=== PATIENT | female | born 1950 | race Caucasian/White ===

== ENCOUNTER 2020-07-31 07:29 | Outpatient (REF) | payer MEDICARE, SELFPAY ==
--- NOTE | 2020-07-31 07:33 | CT_ITS ---
EXAMINATION: CT SINUS WITHOUT CONTRAST CLINICAL INFORMATION: Sinonasal polyps and deviated septum. COMPARISON: None. TECHNIQUE: 2 mm thin axial and reformatted 2 mm thin sagittal and coronal images of sinuses were obtained without contrast. This CT examination was performed using dose optimization techniques as appropriate, variously including the following: *Automated exposure control *Adjustment of mA and/or kV according to patient size (this includes techniques or standardized protocols for targeted exams where dose is matched to indication/reason for exam; i.e. extremities or head) *Use of iterative reconstruction technique DLP: 90 mGy-cm. FINDINGS: There is normal aeration of bilateral paranasal sinuses without mucoperiosteal thickening. The bony sinus ochoa are intact. Bilateral frontoethmoidal recesses and ostiomeatal complexes are widely patent. NASAL CAVITY/NASOPHARYNX: The nasal cavity is clear. There is mild nasal septal deviation/spurring to the left with a small bony spur. The nasopharynx is symmetric. ADDITIONAL RELEVANT FINDINGS: No periapical disease is seen. The TMJs articulate normally. The orbits and skull base soft tissues are unremarkable. The middle ear cavities and mastoid air cells are clear. Limited evaluation demonstrates no acute intracranial findings. CT/CT sinus wo con IMPRESSION: Clear sinuses. The drainage pathways are widely patent. Mild deviation of nasal septum to the left with a moderate-sized nasal spur. There are paradoxical superior turbinates.
== END 2020-07-31 07:30 | disposition home or self-care (01) ==
LOC: HO.CT 07:29
PROVIDERS: Visit Provider Otolaryngology
DX: J33.8 Other polyp of sinus (principal)
CPT/HCPCS: 70486

== ENCOUNTER 2020-10-18 09:41 | Outpatient (REF) | payer MEDICARE, SELFPAY ==
--- NOTE | 2020-10-18 09:45 | US_ITS ---
EXAMINATION: US EXTRACRANIAL CAROTID DUPLEX, BILATERAL CLINICAL INFORMATION: This is a 70-year-old female with dizziness and giddiness. Carotid artery disease. COMPARISON: None TECHNIQUE: Real-time ultrasound and Doppler techniques (integrating B-mode 2-D vascular images, Doppler spectral analysis and color-flow Doppler imaging) were utilized to interrogate the extracranial carotid arteries, the vertebral arteries and proximal subclavian arteries bilaterally. The degree of stenosis is determined by criteria similar to NASCET. FINDINGS: Right Side: 1. There is minimal atherosclerotic plaque seen in the bifurcation/proximal ICA region. 2. The common carotid artery PSV proximally is 117 cm/s and distally 74 cm/s. 3. The proximal internal carotid artery velocities are 64 cm/s systolic and 15 cm/s diastolic. 4. The proximal external carotid artery PSV is 130 cm/s. 5. The vertebral artery shows antegrade flow. 6. The subclavian artery waveforms are normal. Left Side: 1. There is minimal atherosclerotic plaque seen in the bifurcation/proximal ICA region. 2. The common carotid artery PSV proximally is 97 cm/s and distally 98 cm/s. 3. The proximal internal carotid artery velocities are 64 cm/s systolic and 19 cm/s diastolic. 4. The proximal external carotid artery PSV is 127 cm/s. 5. The vertebral artery shows antegrade flow. 6. The subclavian artery waveforms are normal. US/US carotid duplex BI IMPRESSION: 1. RIGHT: Minimal, non-hemodynamically significant stenosis of the proximal right internal carotid artery corresponding to a 0-49% stenosis by velocity criteria. 2. LEFT: Minimal, non-hemodynamically significant stenosis of the proximal left internal carotid artery corresponding to a 0-49% stenosis by velocity criteria.
== END 2020-10-18 09:42 | disposition home or self-care (01) ==
LOC: HO.HMGCX 09:41
PROVIDERS: Visit Provider Internal Medicine
DX: R42 Dizziness and giddiness (principal); R51.9 Headache, unspecified; G89.29 Other chronic pain
CPT/HCPCS: 93880

== ENCOUNTER 2021-05-28 08:10 | Outpatient (REF) | payer MEDICARE, SELFPAY ==
--- NOTE | ~2021-05-28 | MM_ITS ---
EXAMINATION: MM SCREENING DIGITAL BREAST TOMOSYNTHESIS, BILATERAL CLINICAL INFORMATION: Screening. Asymptomatic. The lifetime risk of breast cancer based on the Tyrer-Cuzick Model is 4%. COMPARISON: Mammography: 05/23/2020, 05/18/2019, 04/26/2018; ultrasound right breast 05/23/2019. TECHNIQUE: Digital breast tomosynthesis is performed in both the craniocaudal and mediolateral oblique views along with computer-aided detection (CAD). Synthesized 2D images are generated from the tomosynthesis. FINDINGS: There are scattered areas of fibroglandular density (ACR BI-RADS breast composition Category b). There are no significant masses, abnormal calcifications, or other abnormalities. Tiny cyst posterior outer right breast is borderline decreased. The bilateral axilla and skin contours are unremarkable. MM/MM tomosynthesis screening BI IMPRESSION: No mammographic evidence of malignancy. ASSESSMENT: BI-RADS 2: Benign RECOMMENDATION: Routine annual mammography screening. This patient's information was entered into a reminder system with a target due date for their next mammogram.
== END 2021-05-28 08:11 | disposition home or self-care (01) ==
LOC: HO.MAMMO 08:10
PROVIDERS: PCP Internal Medicine; Visit Provider Internal Medicine
DX: Z12.31 Encounter for screening mammogram for malignant neoplasm of breast (principal)
CPT/HCPCS: 77063; 77067

== ENCOUNTER 2021-06-04 06:30 | Day surgery (SDC) | payer MEDICARE, SELFPAY ==
[2021-04-05 11:46] VITALS: BMI 27.3
[2021-06-04 06:38] VITALS: BP 156/79; PULSE 91; RESP 16; TEMP 36.1; O2SAT 93
--- NOTE | 2021-06-04 07:20 | P.HPSUR_ITS ---
Pre-Procedural Eval Section A Date of Service: 06/04/21 Section B Chief Complaint: screening Details of Present Illness: See H&P no changes Relevant Family History (Specify if Yes): Yes Relevant Social History: None Present Medications: see Short Stay Collaborative assessment Medical History: No relevant PMH History of Previous Operations: No relevant previous surgery Allergies: Allergies Allergy/AdvReac Type Severity Reaction Status Date / Time barium sulfate Allergy Unknown couldn't Verified 04/05/21 11:11 put head down or would pass out loratadine [Claritin] Allergy Unknown heebie Verified 04/05/21 11:11 jeebies like going to jump out of skin varenicline [From Chantix] Allergy Unknown couldnt Verified 04/05/21 11:11 put head down or would pass out azithromycin AdvReac Unknown intestinal Verified 04/05/21 11:11 pain tiotropium AdvReac Unknown coughing Verified 04/05/21 11:11 [Spiriva with HandiHaler] fits Review of Systems Sugical H&P ROS: Negative: Constitution, Cardiovascular, Respiratory, Neurological, Psychiatric, Hem-Onc, Allergic/Immunologic, Gastrointestinal, Genitourinary, Musculoskeletal, Integumentary, Endocrine and E yes/Ears/Nose/Throat Exam Surgical H&P Exam: Normal: HEENT, Normal: Heart, Normal: Lungs, Normal: Extremities, Normal: Abdomen, Normal: Skin and Normal: Neurological Plan Diagnosis/Plan: Unchanged I have reviewed the history and physical and performed a pertinent physical examination on my patient. No changes have occurred unless specified.
--- NOTE | 2021-06-04 07:23 | P.CONAN_ITS ---
[facility] Active Problems Active Problems: All Active Problems (Updated 12/18/20 @ 09:00 by Anali white MD) Allergic rhinitis (Acute) Intermittent lightheadedness (Acute) Normal colonoscopy (Acute) Anxiety (Acute) Osteoarthritis (Acute) Seasonal allergies (Acute) COPD (chronic obstructive pulmonary disease) (Acute) Essential hypertension (Acute) Past Medical History Medical History Allergic rhinitis Anxiety Chronic left-sided headache COPD (chronic obstructive pulmonary disease) Essential hypertension Intermittent lightheadedness Normal colonoscopy Osteoarthritis Seasonal allergies Vertigo Family History Family History Father Colon cancer Mother CVD (cardiovascular disease) Arteriosclerotic heart disease (ASHD) Brother Colon polyps Maternal Aunt Stomach cancer Brother Hemochromatosis Daughter No problems noted. Daughter No problems noted. Sister No problems noted. Sister No problems noted. Sister No problems noted. Sister No problems noted. Sister No problems noted. Sister No problems noted. Sister No problems noted. Sister No problems noted. Surgical History Surgical History History of adenoidectomy History of appendectomy History of colonoscopy History of lung surgery History of tonsillectomy Status post dilation and curettage History of Problems with Anesthesia: No Social History Social History Are you a primary school childcare attendant to a significant other at home: No Do you presently have visiting nurse or other home services: No Alcohol intake: current Alcohol intake frequency: a few times a month Tobacco use type: Smokeless Tobacco Use of substances other than those prescribed or required for medical reasons: No Have you been hit, kicked, punched, or otherwise hurt by someone within the past year? If so, by whom?: No Advance Directives: No Advance Directives Information Provided: No Advance Directives on File: No Recently lost weight without trying: No Eating poorly because of decreased appetite: No Nutrition Risks: No Nutritional Risk Meds Allergies Allergy/AdvReac Type Severity Reaction Status Date / Time barium sulfate Allergy Unknown couldn't Verified 04/05/21 11:11 put head down or would pass out loratadine [Claritin] Allergy Unknown heebie Verified 04/05/21 11:11 jeebies like going to jump out of skin varenicline [From Chantix] Allergy Unknown couldnt Verified 04/05/21 11:11 put head down or would pass out azithromycin AdvReac Unknown intestinal Verified 04/05/21 11:11 pain tiotropium AdvReac Unknown coughing Verified 04/05/21 11:11 [Spiriva with HandiHaler] fits Home Medications Medication Instructions Recorded Confirmed Last Taken Type albuterol sulfate 90 mcg/actuation 2 puff INHALATION Q4-6H PRN 09/07/20 04/05/21 Unknown History aerosol inhaler cetirizine 10 mg tablet 10 mg PO DAILY PRN 12/18/20 04/05/21 Unknown History acetaminophen 325 mg tablet 650 mg PO Q6H PRN 04/05/21 04/05/21 Unknown History (Tylenol) calcium carbonate 500 mg (1,250 1 tab PO DAILY 04/05/21 04/05/21 Unknown History mg)-vitamin D3 125 unit tablet multivitamin 1 tab PO DAILY 04/05/21 04/05/21 Unknown History Exam Exam Date and Time: June 04, 2021 0723 Height,Weight and Vital Signs: Height 5 ft 5.5 in Weight 75.75 kg Last Vital Signs Temp 96.9 F 06/04/21 06:38 Pulse 91 06/04/21 06:38 Resp 16 06/04/21 06:38 BP 156/79 H 06/04/21 06:38 Pulse Ox 93 06/04/21 06:38 Airway Mallampati Class: II TM Dist: >3cm Neck ROM: Full Loose/Missing/Broken Teeth: No Heart: RRR Lungs: CTA Assessment and Plan Assessment Anesthesia Assessment: Anesthesia Plan Discussed and Chart Reviewed Final Anesthetic Review History of Problems with Anesthesia: No NPO: Yes ASA Class: II Final Preanesthetic Review: Meds/Allgs Chart Reviewed, Consent Obtained/Reviewed and Anes Risks/Benef Reviewed Patient Risk: Low Procedure Risk: Low Anesthetic Plan Anesthetic Plan: MAC: Disposition: Standard PACU
[2021-06-04 08:06] VITALS: BP 110/54; PULSE 60; RESP 18; TEMP 36.8; O2SAT 99
--- NOTE | 2021-06-04 08:10 | P.BOP_ITS ---
Brief Operative Note Date of Service: 06/04/21 Pre-op diagnosis: fh colon cancer Post-op diagnosis: same Procedure: colonoscopy Surgeon: Brent James Anesthesia: MAC Was an I[employer] used for this Procedure?: No Estimated blood loss (mL): 2 Pathology: other (polyps x 3) Condition: stable Disposition: PACU
[2021-06-04 08:21] VITALS: BP 130/63; PULSE 58; RESP 18; TEMP 36.8; O2SAT 96
--- NOTE | 2021-06-04 09:18 | OP_ITS ---
SURGEON: Brent James MD INDICATIONS: Colon cancer screening and family history of colon cancer. PREOPERATIVE DIAGNOSIS: POSTOPERATIVE DIAGNOSIS: PROCEDURE PERFORMED: Colonoscopy to the terminal ileum with biopsy and snare polypectomy. ESTIMATED BLOOD LOSS: COMPLICATIONS: ANESTHESIA: ASSISTANTS: SPECIMENS: MEDICATIONS: Monitored anesthesia care. DESCRIPTION OF PROCEDURE: History and physical performed. The risks and benefits of the procedure were explained to the patient. Informed consent was obtained. The patient was placed in the left lateral decubitus position. A digital rectal exam was performed and was found to be normal. The Olympus pediatric video colonoscope was introduced into the rectum and advanced to the cecum without difficulty. The cecum was identified by transillumination, palpation, and identification of the ileocecal valve. Examination was performed and the scope was removed. She tolerated the procedure well and was taken to recovery area in stable condition. FINDINGS: The terminal ileum was normal. The visualized colonic mucosa was normal. The quality of the prep was good. Three polyps were identified and removed. The first was located at 60 cm measuring less than 5 mm and was removed with biopsy forceps. Second was located at 30 cm measuring approximately 8 mm and was removed with a snare. The third polyp was less than 5 mm in the rectum and was removed with a snare. Multiple other hyperplastic appearing rectal polyps were observed, but not removed. Retroflexed examination showed some small internal hemorrhoids. IMPRESSION: Colon polyps. RECOMMENDATION: Follow up the biopsy results. MD LORY Michaels/DAVID / [id number]
== END 2021-06-04 08:40 | disposition home or self-care (01) ==
PROVIDERS: PCP Internal Medicine; Visit Provider Internal Medicine Gastroenterology
PROC: 0DJD8ZZ Inspection of Lower Intestinal Tract, Via Natural or Artificial Opening Endoscopic (ICD-10-PCS; CPT 45378; principal; 2021-06-04 07:30)
DX: Z12.11 Encounter for screening for malignant neoplasm of colon (principal); K63.5 Polyp of colon; K62.1 Rectal polyp; K64.8 Other hemorrhoids; Z80.0 Family history of malignant neoplasm of digestive organs; I10 Essential (primary) hypertension; J44.9 Chronic obstructive pulmonary disease, unspecified
CPT/HCPCS: 45385; 45380; 88305

== ENCOUNTER 2022-01-06 06:44 | Outpatient (REF) | payer MEDICARE, SELFPAY ==
[2022-01-06 12:39] LABS: Alanine Aminotransferase 20 U/L (0-31); Anion Gap 11 (12-20); Aspartate Amino Transferase 22 U/L (5-31); Blood Urea Nitrogen 14 mg/dL (9-16); Calcium 9.6 mg/dL (8.4-10.2); Carbon Dioxide 27 mmol/L (22-29); Chloride 106 mmol/L (96-108); Cholesterol 233 mg/dL; Estimated Glomerular Filt Rate 59; Glucose Fasting 95 mg/dL (60-99); HDL Cholesterol 87 mg/dL; LDL Cholesterol Calculated 127 mg/dl; Sodium 140 mmol/L (135-145); Triglycerides 98 mg/dL
[2022-01-06 12:43] LABS: Vitamin D 25-OH Total 40.7 ng/mL (>30)
== END 2022-01-06 06:45 | disposition home or self-care (01) ==
LOC: HO.HMGCLDS 06:44
PROVIDERS: Visit Provider Internal Medicine
DX: E78.5 Hyperlipidemia, unspecified (principal); I10 Essential (primary) hypertension; N95.9 Unspecified menopausal and perimenopausal disorder; R42 Dizziness and giddiness
CPT/HCPCS: 36415; 80048; 80061; 82306; 84450; 84460

== ENCOUNTER 2022-05-30 07:54 | Outpatient (REF) | payer MEDICARE, SELFPAY ==
--- NOTE | ~2022-05-30 | MM_ITS ---
EXAMINATION: MM SCREENING DIGITAL BREAST TOMOSYNTHESIS, BILATERAL CLINICAL INFORMATION: Screening. Asymptomatic. The lifetime risk of breast cancer based on the Tyrer-Cuzick Model is 4%. COMPARISON: Mammography: 05/28/2021, 05/23/2020, 05/18/2019 TECHNIQUE: Digital breast tomosynthesis is performed in both the craniocaudal and mediolateral oblique views along with computer-aided detection (CAD). Synthesized 2D images are generated from the tomosynthesis. FINDINGS: There are scattered areas of fibroglandular density (ACR BI-RADS breast composition Category b). There are no significant masses, abnormal calcifications, or other abnormalities. Parenchymal pattern is similar to prior studies. There is no developing density. No significant changes. MM/MM tomosynthesis screening BI IMPRESSION: No mammographic evidence of malignancy. ASSESSMENT: BI-RADS 1: Negative RECOMMENDATION: Routine annual mammography screening. This patient's information was entered into a reminder system with a target due date for their next mammogram.
== END 2022-05-30 07:55 | disposition home or self-care (01) ==
LOC: HO.MAMMO 07:54
PROVIDERS: Visit Provider Internal Medicine
DX: Z12.31 Encounter for screening mammogram for malignant neoplasm of breast (principal)
CPT/HCPCS: 77063; 77067

== ENCOUNTER 2022-08-08 06:52 | Outpatient (REF) | payer MEDICARE, SELFPAY ==
[2022-08-08 12:38] LABS: Vitamin D 25-OH Total 40.3 ng/mL (>30)
[2022-08-08 12:51] LABS: Alanine Aminotransferase 21 U/L (0-31); Anion Gap 16 (12-20); Aspartate Amino Transferase 23 U/L (5-31); Blood Urea Nitrogen 16 mg/dL (9-16); Calcium 9.7 mg/dL (8.4-10.2); Carbon Dioxide 24 mmol/L (22-29); Chloride 106 mmol/L (96-108); Cholesterol 227 mg/dL; Estimated Glomerular Filt Rate 57; Glucose Fasting 94 mg/dL (60-99); HDL Cholesterol 88 mg/dL; LDL Cholesterol Calculated 126 mg/dl; Potassium 4.2 mmol/L (3.3-5.1); Sodium 142 mmol/L (135-145); Triglycerides 65 mg/dL
== END 2022-08-08 06:53 | disposition home or self-care (01) ==
LOC: HO.HMGCLDS 06:52
PROVIDERS: PCP Internal Medicine; Visit Provider Internal Medicine
DX: F41.9 Anxiety disorder, unspecified (principal); I10 Essential (primary) hypertension; J44.9 Chronic obstructive pulmonary disease, unspecified; N95.9 Unspecified menopausal and perimenopausal disorder; E78.5 Hyperlipidemia, unspecified
CPT/HCPCS: 36415; 80048; 80061; 82306; 84450; 84460

== ENCOUNTER 2022-09-19 11:29 | Outpatient (REF) | payer MEDICARE, SELFPAY ==
[2022-09-19 12:52] LABS: Influenza A PCR POSITIVE (Negative); Influenza B PCR NEGATIVE (Negative); Resp Syncy Virus RNA Qual PCR NEGATIVE (Negative); SARS COV2 PCR INHOUSE NEGATIVE (Negative)
== END 2022-09-19 11:30 | disposition home or self-care (01) ==
LOC: HO.LNP 11:29
PROVIDERS: Visit Provider Emergency Medicine
DX: R68.89 Other general symptoms and signs (principal); Z20.822 Contact with and (suspected) exposure to COVID-19
CPT/HCPCS: 0241U

== ENCOUNTER 2023-02-09 10:55 | Outpatient (AMB) | payer MEDICARE, SELFPAY ==
--- NOTE | 2023-02-09 11:02 | A.OFFVIS_ITS ---
<Statement entered by Anali Bartholomew MD - 02/08/25 15:14> This note has been administratively?closed. Intake Vital Signs 02/09/23 11:06 Height 5 ft 5.5 in Weight 163 lb BMI 26.7 BP 135/80 Blood Pressure Location Rt brachial Position Sitting Pulse 82 Pulse Source Pulse Oximeter Pulse Oximetry (%) 96 Oxygen Delivery Method Room Air Intake Visit Reasons: SWV Intake Note: Pt is here today for her SWV Allergies barium sulfate Allergy (Unknown, Verified 02/09/23 11:32) couldn't put head down or would pass out loratadine [Claritin] Allergy (Unknown, Verified 02/09/23 11:32) heebie jeebies like going to jump out of skin varenicline [From Chantix] Allergy (Unknown, Verified 02/09/23 11:32) couldnt put head down or would pass out azithromycin Adverse Reaction (Unknown, Verified 02/09/23 11:32) intestinal pain tiotropium [Spiriva with HandiHaler] Adverse Reaction (Unknown, Verified 02/09/23 11:32) coughing fits Medication List - Last Reconciled 02/09/23 by Anali Bartholomew MD acetaminophen (Tylenol) 650 mg PO Q6H PRN albuterol sulfate 90 mcg/actuation 2 puffs inhalation Q4-6H PRN calcium carbonate-vitamin D3 500 mg-3.125 mcg (125 unit) 1 tab PO DAILY cetirizine 10 mg PO DAILY PRN fluticasone propionate 50 mcg/actuation (Flonase Allergy Relief) 1 spray intranasal DAILY multivitamin 1 tab PO DAILY HPI SWV HPI Details SWV ?72 year old lady with dyslipidemia, allergic rhinitis, anxiety, osteoarthritis, COPD and hypertension, here today for subsequent annual wellness visit . Blood pressure slightly elevated on today's visit, patient states that she was aggravated before coming here, worried about her brother who is currently in [facility] admitted for mild heart attack. She had a normal fasting lipid panel and fasting blood sugar check last 08/08/2022. Up-to-date with her screening mammogram, due again 05/30/2022 she had a screening colonoscopy done by Dr. James 06/04/2021 with removal of 3 hyperplastic polyps, repeat to be done in 2025. A bone density scan was done in 2019 which showed normal findings. No history of fractures. She is up-to-date with her COVID vaccine including the bivalent booster, u p-to-date with flu shot pneumonia vaccine and zoster vaccine as well as Tdap. She completed a MOLST form today, and was given the healthcare proxy form to complete. Patient wants to 1st discuss this with her family .? Medical / Social History Reviewed? Past Medical History ?Yes . ? [place] of Care / Care Team list updated ?Yes . ? Surgical/Hospitalization History ?Yes . ? Current Medications (including OTC and supplements) ?Yes . ? Family History ?Yes . ? Tobacco Control form ?Yes . ? AUDIT-C (Alcohol use) form ?Yes . ? Illicit drug use in Social History ?Yes . ? Current diagnosis of depression? ?No ? Appropriate PHQ2/PHQ9 completed ?Yes . ? Data entered by ?Compliance Auditor and reviewed by provider ? Fall Risk ? Fall History? Have you had any falls with injury in the past year? ?No . ? Have you had two or more falls in the past year? ?No . ? Fall Risk Assessment: ?No falls in the past year . ? HRA filled out by the patient, reviewed by Provider and scanned. ?SWV ? Balance? Romberg ?Yes . ? Tandem walk ?Yes . ? Walk and Turn ?Yes . ? Rise from sit to stand ?Yes . ?Vision? Corrective lens none ? Vision screen ? -Dr Claire ?Hearing? Whisper test ?pass . ?Written Plan?Completed. See Patient Documents.? [facility] Medical History (Updated 02/09/23 @ 11:59 by Anali Bartholomew MD) Allergic rhinitis Anxiety Chronic left-sided headache COPD (chronic obstructive pulmonary disease) Dyslipidemia Essential hypertension Intermittent lightheadedness Normal colonoscopy Osteoarthritis Seasonal allergies Vertigo Surgical History History of adenoidectomy History of appendectomy History of colonoscopy History of lung surgery History of tonsillectomy Status post dilation and curettage Family History Father Colon cancer Substance use disorder Mother CVD (cardiovascular disease) Arteriosclerotic heart disease (ASHD) Mental health disorder Brother Colon polyps Substance use disorder Maternal Aunt Stomach cancer Brother Hemochromatosis Daughter No problems noted. Daughter No problems noted. Sister No problems noted. Sister No problems noted. Sister No problems noted. Sister Substance use disorder Sister Substance use disorder Sister No problems noted. Sister No problems noted. Sister No problems noted. Social History Housing: Apartment Are you a primary pet care technician to a significant other at home: No Do you presently have visiting nurse or other home services: No Alcohol intake: current Alcohol intake frequency: a few times a month Tobacco use type: Smokeless Tobacco e-Cigarette/Vaping Use: Currently Using service: No Current occupational status: employed Cognitive needs: No Hearing needs: No Vision needs: No Female Reproductive History Menstrual Date of last pap smear: 04/10/17 Date of Mammogram: 05/30/22 Date of last Bone Density Screenin11/18/18 (Normal bone density) Questionnaire Medicare Wellness Checkup [age] What gender do you identify with?: female During the past 4 weeks, how much have you been bothered by emotional problems such as feeling anxious, depressed, irritable, sad or downhearted, and blue?: not at all During the past 4 weeks, has your physical & emotional health limited your social activities with family, friends, neighbors, or groups?: extremely During the past 4 weeks, how much bodily pain have you generally had?: mild pain During the past 4 weeks, was someone available to help you if you needed & wanted help?: yes, quite a bit During the past 4 weeks, what was the hardest physical activity you could do for at least 2 minutes?: moderate Can you get to places out of walking distance without help? (For eg., can you travel alone on buses, taxis or drive your car?): Yes Can you go shopping for groceries or clothes without someone's help?: Yes Can you prepare your own meals?: Yes Can you do your housework without help?: Yes Because of any health problems, do you need the help of another person with your personal care needs such as eating, bathing, dressing or getting around the house?: No Can you handle your own money without help?: Yes During the past 4 weeks, how would you rate your health in general?: very good During the past 4 weeks how have things been going for you?: pretty well Are you having difficulties driving your car?: no Do you always fasten your seat belt when you are in a car?: yes, usually During past 4 weeks, have you been bothered by the following: never: Falling or dizzy when standing up, Sexual problems?, Trouble eating well?, Teeth or denture problems?, Problems using the telephone? and Tiredness or fatigue? Have you fallen 2 or more times in the past year?: No Are you afraid of falling?: No Are you a smoker?: no (pt states she vapes) During the past 4 weeks, how many drinks of wine, beer, or other alcoholic beverages did you have?: 2-5 drinks per week Do you exercise for about 20 minutes 3 or more times a week?: yes, some of the time Have you been given information to help with the following?: no: Hazards in your house that might hurt you? and no: Keeping track of your medications? How often do you have trouble taking medicines the way you have been told to take them?: I do not have to take medicine How confident are you that you can control & manage most of your health problems?: very confident What is your race?: White Mini Mental State Exam (MMSE) Orientation What is the (year) (season) (date) (day) (month)?: year (2022), season (Spring), date (02/09/2023), day (Thursday) and month (February) Where are we (state) (county) (town or city) (hospital) (floor)?: state ([place]), [facility] ([place]), town or city ([place]) and hospital/clinic ([facility]) Score Score: 9 Activity of Daily Living Bathing - sponge bath, tub bath or shower: receives no assistance (gets in/out by self, if usual bathing means Dressing - getting clothes from closets & drawers, including inner/outer garments & fasteners.: gets clothes & gets completely dressed without help Toileting - going to the 'toilet room' for urine/bowel elimination & cleaning self/arranging clothes: goes to toilet room, cleans self, arranges clothes without help Transfer: moves in & out of bed and chair without help (may use support object) Continence: controls urination/bowel movements completely by self Feeding: feeds self without help Total Score: 0 Information obtained from: patient Using telephone: independent Traveling: independent Shopping: independent Preparing meals: independent Housework: independent Taking medicine: independent Managing money: independent PHQ-9 Over the last 2 weeks, how often have you been bothered by any of the following problems? 1. Little interest or pleasure in doing things: not at all 2. Feeling down, depressed, or hopeless: not at all 3. Trouble falling or staying asleep, or sleeping too much: not at all 4. Feeling tired or having little energy: not at all 5. Poor appetite or overeating: not at all 6. Feeling bad about yourself - or that you are a failure or have let yourself or your family down: not at all 7. Trouble concentrating on things, such as reading the newspaper or watching television: not at all 8. Moving or speaking so slowly that other people could have noticed. Or the opposite - being so fidgety or restless that you have been moving around a lot more than usual: not at all 9. Thoughts that you would be better off or of hurting yourself in some way: not at all Total score: 0 Source: Developed by Drs. Peterson Barakat, Melissa Ramos, Leodan Olivas and colleagues, with an educational kika from [employer] Physical Exam Vital Signs: Last Vital Signs Pulse 82 02/09/23 11:06 BP 144/80 H 02/09/23 11:06 Pulse Ox 96 02/09/23 11:06 Oxygen Delivery Method Room Air 02/09/23 11:06 BMI result Body Mass Index 26.7 Assessment & Plan Assessment & Plan (1) Essential hypertension: Code(s): I10 - Essential (primary) hypertension (2) Seasonal allergies: Code(s): J30.2 - Other seasonal allergic rhinitis (3) COPD (chronic obstructive pulmonary disease): Code(s): J44.9 - Chronic obstructive pulmonary disease, unspecified (4) Dyslipidemia: Code(s): E78.5 - Hyperlipidemia, unspecified (5) Encounter for subsequent annual wellness visit (AWV) in Medicare patient: Code(s): Z00.00 - Encounter for general adult medical examination without abnormal findings (6) Advanced directives, counseling/discussion: Code(s): Z71.89 - Other specified counseling Quality Reporting (2019) Depression/Bipolar (159/160/161/177) PHQ-9: Total score: 0 Coding Level of Care Code Medicare Subsequent (G0439) Diagnoses Essential hypertension I10 Seasonal allergies J30.2 COPD (chronic obstructive pulmonary disease) J44.9 Dyslipidemia E78.5 Encounter for subsequent annual wellness visit (AWV) in Medicare patient Z00.00 Advanced directives, counseling/discussion Z71.89 CPT Codes Advance Care Planning - Time spent: 16-45 minutes ([id number]) Advance Care Planning Advance Care Planning discussion: Completed/Scanned Date of discussion: 02/09/23 Who was present: Patient Forms completed: Health Care Proxy (Form given to patient to complete at home wants to discuss with family members) and MOLST Time spent: 16-45 minutes Actual minutes spent: 16
[2023-02-09 11:06] VITALS: BP 135/80; PULSE 82; O2SAT 96; BMI 26.7
== END 2023-02-09 11:56 | disposition home or self-care (01) ==
LOC: HO.HMGC 10:55
PROVIDERS: PCP Internal Medicine; Visit Provider Internal Medicine
DX: I10 Essential (primary) hypertension (principal); J30.2 Other seasonal allergic rhinitis; J44.9 Chronic obstructive pulmonary disease, unspecified; E78.5 Hyperlipidemia, unspecified; Z00.00 Encounter for general adult medical examination without abnormal findings; Z71.89 Other specified counseling
CPT/HCPCS: 99499

== ENCOUNTER 2023-06-05 07:51 | Outpatient (REF) | payer MEDICARE, SELFPAY | END 2023-06-05 07:52 | disposition home or self-care (01) | LOC: HO.MAMMO 07:51 | PROVIDERS: Visit Provider Internal Medicine | DX: Z12.31 Encounter for screening mammogram for malignant neoplasm of breast (principal) | CPT/HCPCS: 77063; 77067 ==

== ENCOUNTER → 2023-06-05 08:00 | Outpatient (BNV) | payer MEDICARE, SELFPAY | PROVIDERS: Visit Provider Radiology Diagnostic Radiology | DX: Z12.31 Encounter for screening mammogram for malignant neoplasm of breast (principal) | CPT/HCPCS: 77063; 77067 ==

== ENCOUNTER 2023-09-09 06:21 | Outpatient (REF) | payer MEDICARE, SELFPAY ==
[2023-09-09 12:01] LABS: Anion Gap 13 (12-20); Blood Urea Nitrogen 13 mg/dL (9-16); Calcium 9.7 mg/dL (8.4-10.2); Carbon Dioxide 26 mmol/L (22-29); Chloride 106 mmol/L (96-108); Cholesterol 228 mg/dL (<200); Estimated Glomerular Filt Rate > 60; Glucose Fasting 108 mg/dL (60-99); HDL Cholesterol 93 mg/dL (>40); LDL Cholesterol Calculated 117 mg/dL (<100); Potassium 3.7 mmol/L (3.3-5.1); Sodium 141 mmol/L (135-145); Triglycerides 90 mg/dL (<150)
[2023-09-09 12:18] LABS: Vitamin D 25-OH Total 53.2 ng/mL (>30)
== END 2023-09-09 06:22 | disposition home or self-care (01) ==
LOC: HO.HMGCLDS 06:21
PROVIDERS: PCP Internal Medicine; Visit Provider Internal Medicine
DX: E78.5 Hyperlipidemia, unspecified (principal); I10 Essential (primary) hypertension; Z78.0 Asymptomatic menopausal state
CPT/HCPCS: 36415; 80048; 80061; 82306

== ENCOUNTER 2023-09-10 09:12 | Outpatient (AMB) | payer MEDICARE, SELFPAY ==
--- NOTE | 2023-09-10 09:15 | A.OFFPC_ITS ---
Vital Signs 09/10/23 09:19 Height 5 ft 5.5 in Weight 160 lb BMI 26.2 BP 140/80 H Blood Pressure Location Lt brachial Position Sitting Pulse 86 Pulse Source Pulse Oximeter Pulse Oximetry (%) 97 Oxygen Delivery Method Room Air Intake Visit Reasons: 6m follow up Intake Note: Pt is here to follow up for her lab results Allergies barium sulfate Allergy (Unknown, Verified 09/10/23 09:36) couldn't put head down or would pass out loratadine [Claritin] Allergy (Unknown, Verified 09/10/23 09:36) heebie jeebies like going to jump out of skin varenicline [From Chantix] Allergy (Unknown, Verified 09/10/23 09:36) couldnt put head down or would pass out azithromycin Adverse Reaction (Unknown, Verified 09/10/23 09:36) intestinal pain tiotropium [Spiriva with HandiHaler] Adverse Reaction (Unknown, Verified 09/10/23 09:36) coughing fits Medication List - Last Reconciled 09/10/23 by Anali Bartholomew MD acetaminophen (Tylenol) 650 mg PO Q6H PRN albuterol sulfate 90 mcg/actuation 2 puffs inhalation Q4-6H PRN calcium carbonate-vitamin D3 500 mg-3.125 mcg (125 unit) 1 tab PO DAILY cetirizine 10 mg PO DAILY PRN fluticasone propionate 50 mcg/actuation (Flonase Allergy Relief) 1 spray intranasal DAILY multivitamin 1 tab PO DAILY Tobacco use date assessed: 09/10/23 Fall risk assessment: No Falls in past year Last assessed Fall Risk: 09/10/23 Dental Screening Dental Screen Date: 09/10/23 Did you have a dental visit in the last 12 months?: Yes Did you have a dental problem in the last 6 months where you did not have access to dental care?: No Was dental information given to patient?: Patient has dentist HPI 6m follow up HPI Details 72-year-old lady here today for follow-u p. She has COPD, currently use albuterol inhalers home as needed for episodes of bronchospasm and wheezing which has been infrequent. She has hypertension, currently not on any medication at present time. Blood pressure on average has been below 130/80. Today, however, it is elevated as she is dealing with some family issues prior to coming to her visit. She does not smoke but continues to vape, using nicotine. Has been trying to follow a low-cholesterol high-fiber diet, but admits to not getting any regular exercise. Complains of waking up with chest congestion the morning at times. She takes her Zyrtec in the morning which has been helping. ON LICENSE OF [facility] Medical History Dyslipidemia Vertigo Allergic rhinitis Chronic left-sided headache Intermittent lightheadedness Normal colonoscopy Anxiety Osteoarthritis Seasonal allergies COPD (chronic obstructive pulmonary disease) Essential hypertension Surgical History History of lung surgery History of appendectomy Status post dilation and curettage History of colonoscopy History of adenoidectomy History of tonsillectomy Family History Father Colon cancer Substance use disorder Mother CVD (cardiovascular disease) Arteriosclerotic heart disease (ASHD) Mental health disorder Brother Colon polyps Substance use disorder Maternal Aunt Stomach cancer Brother Hemochromatosis Daughter No problems noted. Daughter No problems noted. Sister No problems noted. Sister No problems noted. Sister No problems noted. Sister Substance use disorder Sister Substance use disorder Sister No problems noted. Sister No problems noted. Sister No problems noted. Social History Housing: Apartment Are you a primary pet care worker to a significant other at home: No Do you presently have visiting nurse or other home services: No Alcohol intake: current Alcohol intake frequency: a few times a month Tobacco use type: Smokeless Tobacco e-Cigarette/Vaping Use: Currently Using Second Hand Smoke Exposure: Yes service: No Current occupational status: employed Cognitive needs: No Hearing needs: No Vision needs: No Questionnaire Thrive Questionnaire Date Thrive assessed: 01/08/22 SARAH-7 AMB Questionnaire SARAH-7 Date SARAH - 7 assessed: 01/08/22 Source: Developed by Drs. Peterson Barakat, Melissa Ramos, Leodan Olivas and colleagues, with an educational kika from [email or web address]. Review of Systems Const Denies difficulty sleeping, Denies fever(s), Denies frequent falls, Denies malaise and Denies weakness Eyes Denies change in vision ENT Reports nasal congestion (Usually early mornings), Reports post nasal drip, Denies sinus pain, Denies sore throat and Denies throat swelling Card Denies chest pain, Denies syncope and Denies dyspnea Resp Denies dyspnea GI Denies abdominal pain, Denies change in bowel habits and Denies heartburn Musc Denies abnormal gait Skin/Breast Denies lesions and Denies rash Neuro Denies abnormal gait, Denies syncope, Denies frequent falls and Denies weakness Aller/Immun Denies throat swelling Physical exam (Primary Care) Vital Signs: Last Vital Signs Pulse 86 09/10/23 09:19 BP 140/80 H 09/10/23 09:19 Pulse Ox 97 09/10/23 09:19 Oxygen Delivery Method Room Air 09/10/23 09:19 BMI result Body Mass Index 26.2 Tobacco/Smoking Status: Tobacco use Status Tobacco use date assessed 09/10/23 09/10/23 09:25 Tobacco use type Smokeless Tobacco 09/10/23 09:15 e-Cigarette/Vaping Use Currently Using 09/10/23 09:15 Thrive Assessment: Date of Thrive Assessment Date Thrive assessed 01/08/22 09/10/23 09:15 Const Orientation/consciousness: patient oriented x3 HENMA Head: Yes normocephalic General nose exam: Normal external nose present and No nasal discharge present Face and sinus: Yes sinuses nontender and Yes face symmetric Mouth: Normal oral and palatal mucosa present, oropharynx normal and moist mucous membranes Neck Other: Supple with no lymphadenopatyh Resp Effort & Inspection: normal respiratory effort and able to speak in complete sentences Auscultation: clear to auscultation bilaterally Cardio Other: S1-S2 present regular rate and rhythm Neuro General: patient oriented x3, gait normal, tone normal, moves all extremities and no focal motor deficits Results Reviewed Results Reviewed: ENTERED: 09/09/23 SEBLE ROSE: ORDERED: Met Prof Fast, Lipid Panel, Vitamin D 25-OH Test Result Flag Reference Site Sodium 141 135-145 mmol/L Potassium 3.7 3.3-5.1 mmol/L CL 106 96-108 mmol/L CO2 26 22-29 mmol/L Gap 13 12-20 BUN 13 9-16 mg/dL Creat 0.82 0.5-1.4 mg/dL EGFR > 60 NOTE: For -Citizen Of [place] individuals, multiply the result by 1.210. Chronic Kidney Disease: Estimated GFR < 60 mL/min/1.73m2 Severe Kidney Disease: Estimated GFR < 15 mL/min/1.73m2 FBS 108 H 60-99 mg/dL A fasting glucose from 100-125 mg/dl is considered impaired (pre-diabetes). CA 9.7 8.4-10.2 mg/dL Triglyceride 90 <150 mg/dL Desirable Triglyceride: less than 150 mg/dL Borderline High Triglyceride 150-199 mg/dL High Triglyceride: 200-499 mg/dL Very High Triglyceride: greater than or equal to 5OO mg/dL Cholesterol 228 H <200 mg/dL Desirable Cholesterol: less than 200 mg/dL Borderline High Cholesterol: 200-239 mg/dL High Cholesterol: greater than 239 mg/dL LDL Calculated 117 H <100 mg/dL Desirable LDL: less than 100 mg/dL Near Optimal/Above Optimal LDL: 110-129 mg/dL Borderline High LDL: 130-159 mg/dL High LDL: 160-189 mg/dL Very High LDL: greater than or equal to 190 mg/dL HDL 93 >40 mg/dL Desirable HDL: greater than 40 mg/dL Note: This HDL assay may give artificially low results in patients with liver disease. Vit D 25-OH Tot 53.2 >30 ng/mL Health Based Reference Values* < 20 ng/mL Deficient 20-30 ng/mL Insufficient > 30 ng/mL Sufficient Assessment and Plan Assessment & Plan (1) Dyslipidemia: Code(s): E78.5 - Hyperlipidemia, unspecified Plan: Discuss recent fasting lab results with patient with elevated cholesterol as compared to last check. Stressed importance of following a low-cholesterol diet and getting regular exercise. Will repeat again next year (2) COPD (chronic obstructive pulmonary disease): Code(s): J44.9 - Chronic obstructive pulmonary disease, unspecified Plan: Strongly advised to stop vaping nicotine products continues to take albuterol inhaler as needed , rarely uses per patient. She is up-to-date with her COVID vaccinations including booster, flu shot RSV and pneumococcal vaccine (3) Essential hypertension: Code(s): I10 - Essential (primary) hypertension Plan: Blood pressure today is higher than usual check. Reinforced importance of following a low-salt diet, and advised to get his stop vaping and get regular exercise. (4) Seasonal allergies: Code(s): J30.2 - Other seasonal allergic rhinitis Plan: Continue with cetirizine, switched to evening dose . Stopped going to her allergy shots, patient states there were ineffective. Coding Level of Care Code Est Pt Level 3 (55766) Diagnoses Dyslipidemia E78.5 COPD (chronic obstructive pulmonary disease) J44.9 Essential hypertension I10 Seasonal allergies J30.2
[2023-09-10 09:19] VITALS: BP 140/80; PULSE 86; O2SAT 97; BMI 26.2
== END 2023-09-10 10:22 | disposition home or self-care (01) ==
PROVIDERS: PCP Internal Medicine; Visit Provider Internal Medicine
DX: E78.5 Hyperlipidemia, unspecified (principal); J44.9 Chronic obstructive pulmonary disease, unspecified; I10 Essential (primary) hypertension; J30.2 Other seasonal allergic rhinitis
CPT/HCPCS: 99213

== ENCOUNTER 2023-09-26 11:32 | Outpatient (AMB) | payer MEDICARE, SELFPAY ==
--- NOTE | 2023-09-26 11:35 | MHC.OFFWIV ---
Intake Vital Signs 09/26/23 11:36 Height 5 ft 5.5 in BP 136/82 Blood Pressure Location Rt brachial Position Sitting Pulse 82 Pulse Source Pulse Oximeter Temp 97.8 F Temp Source Oral Pulse Oximetry (%) 98 Oxygen Delivery Method Room Air Intake Visit Reasons: EP Cold symptoms, SOB (maksed) Intake Note: pt is here for sob, loss of voice, pt has copd Patient Tobacco Use Status: Former Tobacco user Allergies barium sulfate Allergy (Unknown, Verified 09/26/23 11:41) couldn't put head down or would pass out loratadine [Claritin] Allergy (Unknown, Verified 09/26/23 11:41) heebie jeebies like going to jump out of skin varenicline [From Chantix] Allergy (Unknown, Verified 09/26/23 11:41) couldnt put head down or would pass out azithromycin Adverse Reaction (Unknown, Verified 09/26/23 11:41) intestinal pain tiotropium [Spiriva with HandiHaler] Adverse Reaction (Unknown, Verified 09/26/23 11:41) coughing fits HPI HPI Comments History of Present Illness Details She presents with cold since thursday she has COPD; current vaper She said inhalers not working Cough is productive No fever or chills + congestion No ear pain or ST No other complaints COVID test at home was negative [facility] Medical History Dyslipidemia Vertigo Allergic rhinitis Chronic left-sided headache Intermittent lightheadedness Normal colonoscopy Anxiety Osteoarthritis Seasonal allergies COPD (chronic obstructive pulmonary disease) Essential hypertension Surgical History History of lung surgery History of appendectomy Status post dilation and curettage History of colonoscopy History of adenoidectomy History of tonsillectomy Family History Father Colon cancer Substance use disorder Mother CVD (cardiovascular disease) Arteriosclerotic heart disease (ASHD) Mental health disorder Brother Colon polyps Substance use disorder Maternal Aunt Stomach cancer Brother Hemochromatosis Daughter No problems noted. Daughter No problems noted. Sister No problems noted. Sister No problems noted. Sister No problems noted. Sister Substance use disorder Sister Substance use disorder Sister No problems noted. Sister No problems noted. Sister No problems noted. Social History Housing: Apartment Are you a primary coronary care unit nurse to a significant other at home: No Do you presently have visiting nurse or other home services: No Alcohol intake: current Alcohol intake frequency: a few times a month Patient Tobacco Use Status: Former Tobacco user Tobacco use type: Smokeless Tobacco e-Cigarette/Vaping Use: Currently Using Second Hand Smoke Exposure: Yes service: No Current occupational status: employed Cognitive needs: No Hearing needs: No Vision needs: No Review of Systems Const Denies body aches, Denies chills and Denies fever(s) ENT Denies vertigo, Denies otalgia, Reports nasal congestion, Reports nasal discharge, Denies sinus pressure and Denies sore throat Card Denies chest pain and Denies rapid heart rate Resp Reports chest congestion and Reports cough Neuro Denies vertigo Physical Exam Vital Signs: Last Vital Signs Temp 97.8 F 09/26/23 11:36 Pulse 82 09/26/23 11:36 BP 136/82 09/26/23 11:36 Pulse Ox 98 09/26/23 11:36 Oxygen Delivery Method Room Air 09/26/23 11:36 General: Non-toxic, NAD. Speaking full sentences. Skin: Warm dry throughout Eye: EOMI HENT: Airway patent. Uvula midline. No pharyngeal erythema or edema. No LOAN CLOSER. Bilateral canals clear. TM non-erythematous, non-bulging. No TM perforation or hemotympanum noted. Respiratory: +rhonchi bilaterally. No rales or wheeze. Cardiac: RRR. No murmur MSK: Full ROM extremities. Neurology: A/O. No aphasia or facial droop. Gait without abnormality Psych: Good mood and affect Assessment & Plan Assessment & Plan (1) Acute bronchitis: Code(s): J20.9 - Acute bronchitis, unspecified Qualifiers: Bronchitis organism: unspecified organism Qualified Code(s): J20.9 - Acute bronchitis, unspecified Plan: Patient seen and evaluated. No bacterial systemic symptoms like fever, chills, green sputum or rales Prednisone with food; avoid nsaids, alcohol or taking late at night Discussed antibiotic if worsening and she will call back for send in script due to COPD hx and rhonchi on exam Patient gave verbal understanding and had no additional questions or concerns at time of discharge All questions answered Medications: New prednisone 40 mg (2 x 20 mg) PO DAILY 8 tabs 0RF 4 days J20.9 - Acute bronchitis, unspecified Coding Level of Care Code Est Pt Level 3 (19544) Diagnoses Acute bronchitis, unspecified organism J20.9 Bronchitis organism: unspecified organism
[2023-09-26 11:36] VITALS: BP 136/82; PULSE 82; TEMP 36.6; O2SAT 98
== END 2023-09-26 12:34 | disposition home or self-care (01) ==
PROVIDERS: PCP Internal Medicine; Visit Provider Physician Assistant
DX: J20.9 Acute bronchitis, unspecified (principal)
CPT/HCPCS: 99213

== ENCOUNTER 2023-09-30 09:57 | Outpatient (AMB) | payer MEDICARE, SELFPAY ==
[2023-09-30 11:20] VITALS: BP 160/80; PULSE 83; TEMP 36.3; O2SAT 96; BMI 26.5
--- NOTE | 2023-09-30 11:20 | AM.OFFWIN_ITS ---
Intake Vital Signs 09/30/23 11:20 Height 5 ft 5.5 in Weight 162 lb BMI 26.5 BP 160/80 H Blood Pressure Location Lt brachial Position Sitting Pulse 83 Pulse Source Pulse Oximeter Temp 97.3 F Temp Source Temporal Artery Scan Pulse Oximetry (%) 96 Oxygen Delivery Method Room Air Intake Visit Reasons: EST/chest congestion(lobby masked) Intake Note: pt is here today for chest congestion started last thursday Patient Tobacco Use Status: Former Tobacco user Allergies barium sulfate Allergy (Unknown, Verified 09/30/23 11:) couldn't put head down or would pass out loratadine [Claritin] Allergy (Unknown, Verified 09/30/23 11:) heebie jeebies like going to jump out of skin varenicline [From Chantix] Allergy (Unknown, Verified 09/30/23 11:) couldnt put head down or would pass out azithromycin Adverse Reaction (Unknown, Verified 09/30/23 11:) intestinal pain tiotropium [Spiriva with HandiHaler] Adverse Reaction (Unknown, Verified 09/30/23 11:) coughing fits Do you need a note to return to daycare/school/sports/work: No HPI EST/chest congestion(lobby masked) HPI Details This is a 72 year old patient who returns to the [place] clinic today for evaluation. She was seen here this past thursday for URI symptoms and was started on 4 days of prednisone. She at the time did not want an antibiotic but was advised to call back if she did not improve. She is completing prednisone course today and although she is feeling somewhat improved, is still having some wheezing and productive cough. She has been using lozenges and ventolin inhaler. Has been feeling hot and cold . [facility] Medical History Dyslipidemia Vertigo Allergic rhinitis Chronic left-sided headache Intermittent lightheadedness Normal colonoscopy Anxiety Osteoarthritis Seasonal allergies COPD (chronic obstructive pulmonary disease) Essential hypertension Surgical History History of lung surgery History of appendectomy Status post dilation and curettage History of colonoscopy History of adenoidectomy History of tonsillectomy Family History Father Colon cancer Substance use disorder Mother CVD (cardiovascular disease) Arteriosclerotic heart disease (ASHD) Mental health disorder Brother Colon polyps Substance use disorder Maternal Aunt Stomach cancer Brother Hemochromatosis Daughter No problems noted. Daughter No problems noted. Sister No problems noted. Sister No problems noted. Sister No problems noted. Sister Substance use disorder Sister Substance use disorder Sister No problems noted. Sister No problems noted. Sister No problems noted. Social History Housing: Apartment Are you a primary home care companion to a significant other at home: No Do you presently have visiting nurse or other home services: No Alcohol intake: current Alcohol intake frequency: a few times a month Patient Tobacco Use Status: Former Tobacco user Tobacco use type: Smokeless Tobacco e-Cigarette/Vaping Use: Currently Using Second Hand Smoke Exposure: Yes service: No Current occupational status: employed Cognitive needs: No Hearing needs: No Vision needs: No Review of Systems Const All systems reviewed & are unremarkable except as noted in HPI and below Physical Exam Vital Signs: Last Vital Signs Temp 97.3 F 09/30/23 11:20 Pulse 83 09/30/23 11:20 BP 160/80 H 09/30/23 11:20 Pulse Ox 96 09/30/23 11:20 Oxygen Delivery Method Room Air 09/30/23 11:20 BMI result Body Mass Index 26.5 Const General: cooperative HEENT Head: Yes normal to inspection Ears: hearing grossly normal bilaterally General nose exam: Normal external nose present Throat: Yes posterior oropharynx normal Neck Neck: Yes no lymphadenopathy Resp Effort & Inspection: normal respiratory effort and Actively coughing Quality: productive Auscultation: wheezes upper bilaterally Cardio Palpation: normal PMI Rate: regular rate Rhythm: regular rhythm Skin General skin exam: no rashes or lesions noted Extrem General: Yes capillary refill normal and Yes no clubbing, cyanosis or edema Psych Appearance: grossly normal Mental Status: mental status grossly normal Speech and movement: Normal speech and movement present Assessment & Plan Assessment & Plan (1) Acute bronchitis: Code(s): J20.9 - Acute bronchitis, unspecified Qualifiers: Bronchitis organism: unspecified organism Qualified Code(s): J20.9 - Acute bronchitis, unspecified Plan: Patient declines any further prednisone. Does not want any viral testing and declined a nebulizer treatment today in the office. I will start her on an antibiotic. We discussed use and possible s/e of this. If she still does not improve with treatment she should return to the clinic for further evaluation. She can continue to use Ventolin and lozenges at home, and may take tylenol/Mo shaun as needed for any pain/fever. She agrees to plan. (2) COPD (chronic obstructive pulmonary disease): Code(s): J44.9 - Chronic obstructive pulmonary disease, unspecified Qualifiers: COPD type: COPD with acute exacerbation Qualified Code(s): J44.1 - Chronic obstructive pulmonary disease with (acute) exacerbation Plan: as above Medications: New doxycycline hyclate 100 mg PO BID 14 tabs 0RF J20.9 - Acute bronchitis, unspecified, J44.9 - Chronic obstructive pulmonary disease, unspecified Discontinued azithromycin Discontinued Reason: Doctor's Order take 500 mg today (day 1), then 250 mg for 4 days (days 2-5) PO 6 tabs 0RF Coding Level of Care Code Est Pt Level 3 (45984) Diagnoses Acute bronchitis, unspecified organism J20.9 Bronchitis organism: unspecified organism Chronic obstructive pulmonary disease with acute exacerbation J44.1 COPD type: COPD with acute exacerbation
== END 2023-09-30 11:40 | disposition home or self-care (01) ==
PROVIDERS: PCP Internal Medicine; Visit Provider Nurse Practitioner Family
DX: J20.9 Acute bronchitis, unspecified (principal); J44.1 Chronic obstructive pulmonary disease with (acute) exacerbation
CPT/HCPCS: 99213

== ENCOUNTER 2023-12-22 08:16 | Outpatient (AMB) | payer MEDICARE, SELFPAY ==
[2023-12-22 08:32] VITALS: BP 122/80; PULSE 79; TEMP 36.4; O2SAT 95; BMI 26.7
--- NOTE | 2023-12-22 08:32 | MHC.OFFWIV ---
Intake Vital Signs 12/22/23 08:32 Height 5 ft 5.5 in Weight 163 lb BMI 26.7 BP 122/80 Blood Pressure Location Lt brachial Position Sitting Pulse 79 Pulse Source Pulse Oximeter Temp 97.6 F Temp Source Temporal Artery Scan Pulse Oximetry (%) 95 Oxygen Delivery Method Room Air Intake Visit Reasons: EP Head cold Intake Note: pt is here today for head cold started Thursday Patient Tobacco Use Status: Former Tobacco user Allergies barium sulfate Allergy (Unknown, Verified 12/22/23 09:04) couldn't put head down or would pass out loratadine [Claritin] Allergy (Unknown, Verified 12/22/23 09:04) heebie jeebies like going to jump out of skin varenicline [From Chantix] Allergy (Unknown, Verified 12/22/23 09:04) couldnt put head down or would pass out azithromycin Adverse Reaction (Unknown, Verified 12/22/23 09:04) intestinal pain tiotropium [Spiriva with HandiHaler] Adverse Reaction (Unknown, Verified 12/22/23 09:04) coughing fits Medication List - Last Reconciled 12/22/23 by COLBY Jones acetaminophen (Tylenol) 650 mg PO Q6H PRN albuterol sulfate 90 mcg/actuation 2 puffs inhalation Q4-6H PRN amoxicillin-pot clavulanate 875-125 mg 1 tab PO Q12H benzonatate 200 mg PO BID PRN calcium carbonate-vitamin D3 500 mg-3.125 mcg (125 unit) 1 tab PO DAILY cetirizine 10 mg PO DAILY PRN fluticasone propionate 50 mcg/actuation (Flonase Allergy Relief) 1 spray intranasal DAILY multivitamin 1 tab PO DAILY prednisone 40 mg (2 x 20 mg) PO DAILY Do you need a note to return to daycare/school/sports/work: No HPI HPI Comments History of Present Illness Details Patient is a 73-year-old female in today for a sick visit. Patient states she has developed symptoms of cough, wheeze, chest congestion, sore throat, headache x3 days. Patient has a past medical history significant for COPD. Patient used her at home albuterol inhaler to hours prior to this appointment declined in office nebulizer treatment. Patient denies chest pain, dizziness, shortness of breath, nausea, vomiting, diarrhea. Patient does have some dyspnea on exertion. The patient has used albuterol inhaler at home with moderate effect. [facility] Medical History Dyslipidemia Vertigo Allergic rhinitis Chronic left-sided headache Intermittent lightheadedness Normal colonoscopy Anxiety Osteoarthritis Seasonal allergies COPD (chronic obstructive pulmonary disease) Essential hypertension Surgical History History of lung surgery History of appendectomy Status post dilation and curettage History of colonoscopy History of adenoidectomy History of tonsillectomy Family History Father Colon cancer Substance use disorder Mother CVD (cardiovascular disease) Arteriosclerotic heart disease (ASHD) Mental health disorder Brother Colon polyps Substance use disorder Maternal Aunt Stomach cancer Brother Hemochromatosis Daughter No problems noted. Daughter No problems noted. Sister No problems noted. Sister No problems noted. Sister No problems noted. Sister Substance use disorder Sister Substance use disorder Sister No problems noted. Sister No problems noted. Sister No problems noted. Social History Housing: Apartment Are you a primary skin care therapist to a significant other at home: No Do you presently have visiting nurse or other home services: No Alcohol intake: current Alcohol intake frequency: a few times a month Patient Tobacco Use Status: Former Tobacco user Tobacco use type: Smokeless Tobacco e-Cigarette/Vaping Use: Currently Using Second Hand Smoke Exposure: Yes service: No Current occupational status: employed Cognitive needs: No Hearing needs: No Vision needs: No Review of Systems Const All systems reviewed & are unremarkable except as noted in HPI and below Reports headache(s) ENT Denies dizziness, Reports headache(s) and Reports sore throat Card Denies chest pain, Denies dyspnea and Reports dyspnea on exertion Resp Reports chest congestion, Reports cough, Denies dyspnea, Reports dyspnea on exertion and Reports wheezing GI Denies diarrhea, Denies nausea and Denies vomiting Neuro Denies dizziness and Reports headache(s) Aller/Immun Reports wheezing Physical Exam Vital Signs: Last Vital Signs Temp 97.6 F 12/22/23 08:32 Pulse 79 12/22/23 08:32 BP 122/80 12/22/23 08:32 Pulse Ox 95 12/22/23 08:32 Oxygen Delivery Method Room Air 12/22/23 08:32 BMI result Body Mass Index 26.7 Vital signs reviewed stable Const Other: Appearance: Alert.? Oriented X3.? No acute distress.? Head: Normocephalic, atraumatic, no step-offs or deformities Eyes: Pupils equal, round and reactive to light.? ENT: Pharynx normal.?TM intact and pearly gunderson. Neck: Normal inspection.? Neck supple.?Full ROM. CVS: Normal heart rate and rhythm.? Pulses normal.? Respiratory: No respiratory distress.? Bilateral wheeze upper lobes. ? Neuro: Oriented X 3.? No motor deficit.? No sensory deficit. CN 2-12 intact Assessment & Plan Assessment & Plan (1) Upper respiratory infection: Comment: Patient will be given prednisone, benzonatate, Augmentin, to be taken as directed. Patient had upper respiratory swab in office. Patient was educated on signs of worsening symptoms and when to present back to the walk-in or when to present to the ED. patient declined in office nebulizer due to history of bronchospasm. Code(s): J06.9 - Acute upper respiratory infection, unspecified Qualifiers: URI type: unspecified URI Qualified Code(s): J06.9 - Acute upper respiratory infection, unspecified Plan: Take your medications as prescribed. If you were prescribed antibiotics today, it is important that you take your medication to their entirety, do not skip any doses, do not finish them early. Follow-up with your primary care provider this week. Return to the emergency department with new or worsening symptoms. Such as fevers, chills, chest pain, shortness of breath, nausea, vomiting, dizziness, headache, vision changes, lethargy In case of emergency call 911 Plan Follow-up with PCP. Orders: Orders SARS-CoV2/FLU/RSV Today J06.9 - Acute upper respiratory infection, unspecified Medications: New amoxicillin-pot clavulanate 875-125 mg 1 tab PO Q12H 14 tabs 0RF benzonatate 200 mg PO BID PRN 30 caps 0RF cough prednisone 40 mg (2 x 20 mg) PO DAILY 10 tabs 0RF Discontinued doxycycline hyclate Discontinued Reason: Patient Completed Course 100 mg PO BID 14 tabs 0RF J20.9 - Acute bronchitis, unspecified, J44.9 - Chronic obstructive pulmonary disease, unspecified Coding Level of Care Code Est Pt Level 3 (34893) Diagnoses Upper respiratory tract infection, unspecified type J06.9 URI type: unspecified URI Time Spent (min) 24
== END 2023-12-22 09:22 | disposition home or self-care (01) ==
PROVIDERS: PCP Internal Medicine; Visit Provider Nurse Practitioner Primary Care
DX: J06.9 Acute upper respiratory infection, unspecified (principal)
CPT/HCPCS: 99213

== ENCOUNTER 2023-12-22 11:26 | Outpatient (REF) | payer MEDICARE, SELFPAY ==
[2023-12-22 12:30] LABS: Influenza A PCR NEGATIVE (Negative); Influenza B PCR NEGATIVE (Negative); Resp Syncy Virus RNA Qual PCR NEGATIVE (Negative); SARS COV2 PCR INHOUSE NEGATIVE (Negative)
== END 2023-12-22 11:27 | disposition home or self-care (01) ==
LOC: HO.HMGCLNP 11:26
PROVIDERS: Visit Provider Nurse Practitioner Primary Care
DX: Z11.52 Encounter for screening for COVID-19 (principal); J06.9 Acute upper respiratory infection, unspecified
CPT/HCPCS: 0241U

== ENCOUNTER 2024-03-09 09:11 | Outpatient (AMB) | payer MEDICARE, SELFPAY ==
--- NOTE | 2024-03-09 09:37 | AM.OFFVISMDC ---
Intake Vital Signs 03/09/24 09:57 Height 5 ft 5.5 in Weight 157 lb BMI 25.7 BP 130/80 Blood Pressure Location Rt brachial Position Sitting Pulse 81 Pulse Source Pulse Oximeter Pulse Oximetry (%) 96 Oxygen Delivery Method Room Air Intake Visit Reasons: CARL [id number] Intake Note: Pt is here today for her SWV Allergies barium sulfate Allergy (Unknown, Verified 03/09/24 10:14) couldn't put head down or would pass out loratadine [Claritin] Allergy (Unknown, Verified 03/09/24 10:14) heebie jeebies like going to jump out of skin varenicline [From Chantix] Allergy (Unknown, Verified 03/09/24 10:14) couldnt put head down or would pass out azithromycin Adverse Reaction (Unknown, Verified 03/09/24 10:14) intestinal pain tiotropium [Spiriva with HandiHaler] Adverse Reaction (Unknown, Verified 03/09/24 10:14) coughing fits Medication List - Last Reconciled 03/09/24 by Anali Bartholomew MD albuterol sulfate 90 mcg/actuation 2 puffs inhalation Q4-6H PRN calcium carbonate-vitamin D3 500 mg-3.125 mcg (125 unit) 1 tab PO DAILY cetirizine 10 mg PO DAILY PRN fluticasone propionate 50 mcg/actuation (Flonase Allergy Relief) 1 spray intranasal DAILY ibuprofen 200 mg PO Q6H PRN multivitamin 1 tab PO DAILY HPI SWV G0439 HPI Details SWV ? 73 year old lady with history of allergic rhinitis, arthritis, prediabetes, hypertension hyperlipidemia, presents for her ? Annual Wellness Visit, subsequent visit.? She is up-to-date with her screening mammogram, due again in 06/24/2024, is no longer gets cervical cancer screenings. She is up-to-date with her screening colonoscopy done 06/04/2021, and last bone density scan was done 2019 which showed normal findings. She had a normal fasting lipid screening done 09/09/2023, but fasting sugar done at the same time was in the prediabetic range at 108 mg/dL. She is up-to-date with all her vaccinations except for her tetanus booster ? Medical / Social History Reviewed? Past Medical History ?Yes . ? Sam[place] of Care / Care Team list updated ?Yes . ? Surgical/Hospitalization History ?Yes . ? Current Medications (including OTC and supplements) ?Yes . ? Family History ?Yes . ? Tobacco Control form ?Yes . ? AUDIT-C (Alcohol use) form ?Yes . ? Illicit drug use in Social History ?Yes . ? Current diagnosis of depression? ?No ? Appropriate PHQ2/PHQ9 completed ?Yes . ? Data entered by ?[employer] and reviewed by provider ? Fall Risk ? Fall History? Have you had any falls with injury in the past year? ?No . ? Have you had two or more falls in the past year? ?No . ? Fall Risk Assessment: ?No falls in the past year . ? HRA filled out by the patient, reviewed by Provider and scanned. ?SWV ? Balance? Romberg ?Yes . ? Tandem walk ?Yes . ? Walk and Turn ?Yes . ? Rise from sit to stand ?Yes . ?Vision? Corrective lens ?no ? Vision screen ? Up-to-date, currently sees Dr. Claire ?Hearing? Whisper test ?pass . ?Written Plan?Completed. See Patient Documents.? [facility] Medical History (Updated 03/09/24 @ 10:45 by Anali Bartholomew MD) Impaired fasting glucose Dyslipidemia Allergic rhinitis Normal colonoscopy Osteoarthritis Seasonal allergies COPD (chronic obstructive pulmonary disease) Surgical History History of lung surgery History of appendectomy Status post dilation and curettage History of colonoscopy History of adenoidectomy History of tonsillectomy Family History Father Colon cancer Substance use disorder Mother CVD (cardiovascular disease) Arteriosclerotic heart disease (ASHD) Mental health disorder Brother Colon polyps Substance use disorder Maternal Aunt Stomach cancer Brother Hemochromatosis Daughter No problems noted. Daughter No problems noted. Sister No problems noted. Sister No problems noted. Sister No problems noted. Sister Substance use disorder Sister Substance use disorder Sister No problems noted. Sister No problems noted. Sister No problems noted. Social History Housing: Apartment Are you a primary farm or ranch animal caretaker to a significant other at home: No Do you presently have visiting nurse or other home services: No Alcohol intake: current Alcohol intake frequency: a few times a month Patient Tobacco Use Status: Former Tobacco user Tobacco use type: Smokeless Tobacco e-Cigarette/Vaping Use: Currently Using Second Hand Smoke Exposure: Yes service: No Current occupational status: employed Cognitive needs: No Hearing needs: No Vision needs: No Questionnaire Medicare Wellness Checkup [age] What gender do you identify with?: female During the past 4 weeks, how much have you been bothered by emotional problems such as feeling anxious, depressed, irritable, sad or downhearted, and blue?: slightly During the past 4 weeks, has your physical & emotional health limited your social activities with family, friends, neighbors, or groups?: not at all During the past 4 weeks, how much bodily pain have you generally had?: moderate pain During the past 4 weeks, was someone available to help you if you needed & wanted help?: yes, as much as I wanted During the past 4 weeks, what was the hardest physical activity you could do for at least 2 minutes?: heavy Can you get to places out of walking distance without help? (For eg., can you travel alone on buses, taxis or drive your car?): Yes Can you go shopping for groceries or clothes without someone's help?: Yes Can you prepare your own meals?: Yes Can you do your housework without help?: Yes Because of any health problems, do you need the help of another person with your personal care needs such as eating, bathing, dressing or getting around the house?: No Can you handle your own money without help?: Yes During the past 4 weeks, how would you rate your health in general?: very good During the past 4 weeks how have things been going for you?: very well; could hardly better Are you having difficulties driving your car?: no Do you always fasten your seat belt when you are in a car?: yes, usually During past 4 weeks, have you been bothered by the following: never: Falling or dizzy when standing up, Sexual problems?, Trouble eating well?, Teeth or denture problems?, Problems using the telephone? and Tiredness or fatigue? Have you fallen 2 or more times in the past year?: No Are you afraid of falling?: No Are you a smoker?: yes, and I might quit During the past 4 weeks, how many drinks of wine, beer, or other alcoholic beverages did you have?: 2-5 drinks per week Do you exercise for about 20 minutes 3 or more times a week?: yes, all the time Have you been given information to help with the following?: no: Hazards in your house that might hurt you? and no: Keeping track of your medications? How often do you have trouble taking medicines the way you have been told to take them?: I always take medicine as prescribed How confident are you that you can control & manage most of your health problems?: very confident What is your race?: White Mini Mental State Exam (MMSE) Orientation What is the (year) (season) (date) (day) (month)?: year (2023), season (spring), date (03/09/24), day (Thursday) and month (march) Where are we (state) (county) (town or city) (hospital) (floor)?: state ([place]), county ([place]), town or city ([place]) and hospital/clinic ([facility]) Score Score: 9 Activity of Daily Living Bathing - sponge bath, tub bath or shower: receives no assistance (gets in/out by self, if usual bathing means Dressing - getting clothes from closets & drawers, including inner/outer garments & fasteners.: gets clothes & gets completely dressed without help Toileting - going to the 'toilet room' for urine/bowel elimination & cleaning self/arranging clothes: goes to toilet room, cleans self, arranges clothes without help Transfer: moves in & out of bed and chair without help (may use support object) Continence: controls urination/bowel movements completely by self Feeding: feeds self without help Total Score: 0 Information obtained from: patient Using telephone: independent Traveling: independent Shopping: independent Preparing meals: independent Housework: independent Taking medicine: independent Managing money: independent PHQ-9 Over the last 2 weeks, how often have you been bothered by any of the following problems? 1. Little interest or pleasure in doing things: not at all 2. Feeling down, depressed, or hopeless: not at all 3. Trouble falling or staying asleep, or sleeping too much: not at all 4. Feeling tired or having little energy: not at all 5. Poor appetite or overeating: not at all 6. Feeling bad about yourself - or that you are a failure or have let yourself or your family down: not at all 7. Trouble concentrating on things, such as reading the newspaper or watching television: not at all 8. Moving or speaking so slowly that other people could have noticed. Or the opposite - being so fidgety or restless that you have been moving around a lot more than usual: not at all 9. Thoughts that you would be better off or of hurting yourself in some way: not at all Total score: 0 Depression Screening Interpretation: Negative Depression Screening Done: Yes [id number] - PHQ-9 Billing: Yes Source: Developed by Drs. Peterson Barakat, Melissa Ramos, Leodan Olivas and colleagues, with an educational kika from [employer]. SARAH-7 AMB Questionnaire SARAH-7 Date SARAH - 7 assessed: 03/09/24 Feeling nervous, anxious, or on edge: 0 = Not at all Not being able to stop or control worryin = Not at all Worrying too much about different things: 0 = Not at all Trouble relaxin = Not at all Being so restless that it is hard to sit still: 0 = Not at all Becoming easily annoyed or irritable: 0 = Not at all Feeling afraid as if something awful might happen: 0 = Not at all Total SARAH-7 score (0-4 normal; 5-9 mild; 10-14 moderate; 15-21 severe): 0 Source: Developed by Drs. Peterson Barakat, Melissa Ramos, Leodan Olivas and colleagues, with an educational kika from [employer]. Physical Exam Vital Signs: Last Vital Signs Pulse 81 03/09/24 09:57 BP 130/80 03/09/24 09:57 Pulse Ox 96 03/09/24 09:57 Oxygen Delivery Method Room Air 03/09/24 09:57 BMI result Body Mass Index 25.7 Assessment & Plan Assessment & Plan (1) Impaired fasting glucose: Code(s): R73.01 - Impaired fasting glucose Plan: Latest fasting glucose was elevated in the prediabetic range, reinforced importance of following a healthy diet and getting regular exercise to prevent further progression to diabetes (2) Allergic rhinitis: Code(s): J30.9 - Allergic rhinitis, unspecified Plan: Discontinue cetirizine and switched to levels cetirizine 5 mg taken once a day. Has been using regular saline nasal wash to flush out allergens., has fluticasone nasal spray which she uses as needed (3) Dyslipidemia: Code(s): E78.5 - Hyperlipidemia, unspecified Plan: Latest fasting lipids are within normal limits. Continue with healthy eating habits and regular exercise. (4) Osteoarthritis: Code(s): M19.90 - Unspecified osteoarthritis, unspecified site Plan: Take ibuprofen as needed for joint pain (5) Encounter for subsequent annual wellness visit (AWV) in Medicare patient: Code(s): Z00.00 - Encounter for general adult medical examination without abnormal findings Plan: Medical wellness checklist reviewed, discussed with patient and updated. Copy given. Repeat bone density scan ordered to be scheduled together with upcoming mammogram 06/10/2024 (6) Advanced directives, counseling/discussion: Code(s): Z71.89 - Other specified counseling Plan: Initiated the conversation about Advanced Directives. Advanced Directives help patients prepare for current and future decisions about their medical treatment and place of care. Discussed with patient that it is a process where a patients current condition and prognosis are reviewed, their wishes for information regarding their illness are elicited, and likely medical dilemmas are presented and options discussed. Healthcare proxy form completed. The form can be amended as needed, reviewed yearly and make changes as needed Orders: Orders XR DEXA axial skeleton Today Z78.0 - Asymptomatic menopausal state Vitamin D 25-OH Total 09/04/24 R73.01 - Impaired fasting glucose, Z13.220 - Encounter for screening for lipoid disorders, Z78.0 - Asymptomatic menopausal state Lipid Panel 09/04/24 R73.01 - Impaired fasting glucose, Z13.220 - Encounter for screening for lipoid disorders, Z78.0 - Asymptomatic menopausal state Glucose Fasting 09/04/24 R73.01 - Impaired fasting glucose, Z13.220 - Encounter for screening for lipoid disorders, Z78.0 - Asymptomatic menopausal state Hemoglobin A1c 09/04/24 R73.01 - Impaired fasting glucose, Z13.220 - Encounter for screening for lipoid disorders, Z78.0 - Asymptomatic menopausal state Medications: New levocetirizine 5 mg PO QPM PRN 30 tabs 3RF allergy symptoms Quality Reporting (2019) Depression/Bipolar (159/160/161/177) PHQ-9: Total score: 0 Coding Level of Care Code Medicare Subsequent (G0439) Diagnoses Impaired fasting glucose R73.01 Allergic rhinitis J30.9 Dyslipidemia E78.5 Osteoarthritis M19.90 Encounter for subsequent annual wellness visit (AWV) in Medicare patient Z00.00 Advanced directives, counseling/discussion Z71.89 CPT Codes Advance Care Planning - Time spent: 16-45 minutes ([id number]) Advance Care Planning Advance Care Planning discussion: Completed/Scanned Date of discussion: 03/09/24 Who was present: Patient Forms completed: Health Care Proxy Time spent: 16-45 minutes Actual minutes spent: 16
[2024-03-09 09:57] VITALS: BP 130/80; PULSE 81; O2SAT 96; BMI 25.7
== END 2024-03-09 10:38 | disposition home or self-care (01) ==
PROVIDERS: PCP Internal Medicine; Visit Provider Internal Medicine
DX: Z00.00 Encounter for general adult medical examination without abnormal findings (principal); J30.9 Allergic rhinitis, unspecified; R73.01 Impaired fasting glucose; E78.5 Hyperlipidemia, unspecified; M19.90 Unspecified osteoarthritis, unspecified site; Z71.89 Other specified counseling
CPT/HCPCS: 99497; G0439

== ENCOUNTER 2024-06-10 07:33 | Outpatient (REF) | payer MEDICARE, SELFPAY ==
--- NOTE | ~2024-06-10 | MM_ITS ---
EXAMINATION: BONE DENSITOMETRY CLINICAL INDICATION: Asymptomatic menopausal state. COMPARISON: Previous BD dated 11/18/2018 and baseline BD dated 11/10/2006. TECHNIQUE: Using a Qardio DXA System (software version: 13.1) manufactured by [employer], dual-energy x-ray absorptiometry was performed of the lumbar spine and left hip. The images are of good technical quality. Summary results are attached. FINDINGS: LEFT FEMUR, NECK: Current: BMD 0.952 g/cm2, Z-score 1.0, T-score -0.6, normal. Prior: BMD 1.005 g/cm2. Baseline: BMD 1.035 g/cm2. LEFT FEMUR, TOTAL: Current: BMD 1.051 g/cm2, Z-score 1.7, T-score -0.3, normal, 4.1% decrease from previous, 6.3% decrease from baseline (<5% change is not significant). Prior: BMD 1.096 g/cm2. Baseline: BMD 1.122 g/cm2. AP SPINE L1-L4 (excluding L3): The data of L1-L4 has been changed to exclude the L3 vertebral body, because at this level may cause overestimation of lumbar spine density. Current: BMD 1.294 g/cm2, Z-score 2.5, T-score 1.0, normal, 3.3% decrease from previous, 4.6% decrease from baseline (<5% change is not significant). Prior: BMD 1.338 g/cm2. Baseline: BMD 1.356 g/cm2. IDENTIFIED RISK FACTORS: Current smoker, history of fracture (adult), glucocorticoids, menopause. HISTORY OF FRACTURE: Wrist. MEDICATIONS: Calcium supplements or multivitamin, vitamin D. MM/XR DEXA axial skeleton IMPRESSION: 1. DIAGNOSIS: Normal bone density based on the lowest T-score value of -0.6 in the femoral neck applying World Health Organization criteria. 2. 10-YEAR FRACTURE RISK PREDICTION, FRAX: According to the guidelines, FRAX calculation should only be performed on patients in the osteopenia bone density category. Therefore, FRAX was not performed on this patient. 3. Treatment Recommendations: NOF guidelines recommend consideration for treatment in postmenopausal women and men age 50 and older presenting with the following: -A hip or vertebral (clinical or morphometric) fracture. -T-score less than or equal to -2.5 at the femoral neck or spine after appropriate evaluation to exclude secondary causes. -Low bone mass at the hip or spine and a 10-year fracture probability by FRAX of greater than or equal to 3% for hip fracture or greater than or equal to 20% for major osteoporotic fracture based on the [place] adapted WHO algorithm. 4. Other Recommendations: All treatment decisions require clinical judgment and consideration of individual patient factors, including patient preferences, comorbidities, previous drug use, risk factors not captured in the FRAX model (e.g. frailty, falls, vitamin D deficiency, increased bone turnover, interval significant decline in bone density) and possible under or overestimation of fracture risk by FRAX. FUTURE SCAN RECOMMENDATION: People with diagnosed cases of osteoporosis or at high risk for fracture should have regular bone mineral density tests. For patients eligible for Medicare, routine testing is allowed once every 2 years. The testing frequency can be increased to one year for patients who have rapidly progressing disease, those who are receiving or discontinuing medical therapy to restore bone mass, or have additional risk factors. Electronically signed by: Naima Gill MD 07/01/2024 11:22 AM EDT [facility]
--- NOTE | ~2024-06-10 | MM_ITS ---
EXAMINATION: MM SCREENING DIGITAL BREAST TOMOSYNTHESIS, BILATERAL CLINICAL INFORMATION: Screening. Asymptomatic. COMPARISON: Mammography: Comparison is made with available priors TECHNIQUE: Digital breast mammography with tomosynthesis is performed in both the craniocaudal and mediolateral oblique views along with computer-aided detection (CAD). FINDINGS: There are scattered areas of fibroglandular density (ACR BI-RADS breast composition Category b). There are no significant masses, abnormal calcifications, or other abnormalities. MM/MM tomosynthesis screening BI IMPRESSION: No mammographic evidence of malignancy. ASSESSMENT: BI-RADS BI-RADS 1 - Negative RECOMMENDATION: Routine annual mammography screening. 1 year F/U This examination should not preclude the clinical evaluation of a suspicious palpable abnormality. This patient's information was entered into a reminder system with a target due date for their next mammogram. Electronically signed by: Jennifer Almonte DO 06/26/2024 03:00 PM [facility]
== END 2024-06-10 07:34 | disposition home or self-care (01) ==
LOC: HO.MAMMO 07:33
PROVIDERS: PCP Internal Medicine; Visit Provider Internal Medicine
DX: Z12.31 Encounter for screening mammogram for malignant neoplasm of breast (principal); Z13.820 Encounter for screening for osteoporosis; Z78.0 Asymptomatic menopausal state
CPT/HCPCS: 77063; 77067; 77080

== ENCOUNTER → 2024-06-10 07:45 | Outpatient (BNV) | payer MEDICARE, SELFPAY | PROVIDERS: PCP Internal Medicine; Visit Provider Internal Medicine | DX: Z12.31 Encounter for screening mammogram for malignant neoplasm of breast (principal) | CPT/HCPCS: 77063; 77067 ==

== ENCOUNTER 2024-09-08 07:25 | Outpatient (REF) | payer MEDICARE, MEDICAID, SELFPAY ==
[2024-09-08 10:35] LABS: Estimated Average Glucose 108 mg/dL; Hemoglobin A1C 128.5538 umol/L; Hemoglobin A1c % 5.4 % (<6.0); Total Hemoglobin (HGBA1C) 3659.5925 umol/L
[2024-09-08 10:53] LABS: Cholesterol 207 mg/dL (<200); Glucose Fasting 101 mg/dL (60-99); HDL Cholesterol 92 mg/dL (>40); LDL Cholesterol Calculated 100 mg/dL (<100); Triglycerides 76 mg/dL (<150)
[2024-09-08 11:10] LABS: Vitamin D 25-OH Total 30.1 ng/mL (>30)
--- OUTSIDE RECORDS SUMMARY | 2024-09-13 23:08 | XMS_ITS | Patient Health Record ---
Author Organization [facility] Address [address] [place] [address] Care Team Providers Care Quality Controller Name Role Phone Puma MARIN, Anali Primary Care Provider Brent Logan Jr Unavailable ALLERGIES Allergen (clinical drug ingredient) Drug/Non Drug Allergy documented on EMR Reaction Allergy Type Onset Date Status azithromycin Zpack (uncoded) Unknown Allergy A ctive REASON FOR REFERRAL No Information MEDICATIONS Medication SIG (Take, Route, Frequency, Duration) Notes Start Date End Date Status MiraLax (colon prep) 8.3 ounce ((238) grams mixed with Gatorade or Crystal Light orally begin at 5:00 p.m. the day before the procedure for 1 day 03/13/2021 Active ZyrTEC Allergy 10 MG 1 tablet as needed Orally Once a day PRN Active LORazepam 0.5 MG 1 tablet as needed O rally PRN PRN Active Calcium + D Active Tylenol Active Ventolin HFA Active Multivitamin Active IMMUNIZATIONS Vaccine Route Administration Date Status Comme nts Influenza Unknown 07/18/2020 Administered SOCIAL HISTORY Sex Assigned At : Social History Observation Description Sex Assigned At Unknown PROBLEMS Problem Type ICD Code Onset Dates Problem Status W/U Status Risk SNOMED Code Notes Problem Colon cancer screening (Z12.11) Active confirmed [id number] Problem Encounter for other preprocedural examination (Z01.818) Active confirmed [id number] PLAN OF TREATMENT Future Test Test Name Order Date COLONOSCOPY 08/22/2015 COLONOSCOPY 03/13/2021 Insurance Providers Payer Name Payer Address Payer Phone Subscriber Number Group Number Insured Name Patient Relationship to Insured Coverage Start Date Coverage End Date MEDICARE OF [place] [address] [place] [id number] ABIODUN ESCOBAR Self - patient is the insured MED[employer] ATTN CLAIMS [address] [place] [phone] [id number] ABIODUN ESCOBAR Self - patient is the insured MEDICAL (GENERAL) HISTORY Medical History History ICD Code colonoscopy 12/07/15, five-year followup hyperplastic colon polyps hemorrhoids anxiety COPD hypertension Surgical History Surgery Date(Month/Year) appendectomy tonsillectomy lung surgery due to collapsed lung adenoidectomy
== END 2024-09-08 07:26 | disposition home or self-care (01) ==
LOC: HO.HMGCLDS 07:25
PROVIDERS: PCP Internal Medicine; Visit Provider Internal Medicine
DX: R73.01 Impaired fasting glucose (principal); Z13.220 Encounter for screening for lipoid disorders; Z78.0 Asymptomatic menopausal state
CPT/HCPCS: 36415; 80061; 82306; 82947; 83036

== ENCOUNTER 2024-09-12 09:12 | Outpatient (AMB) | payer MEDICARE, SELFPAY ==
--- NOTE | 2024-09-12 09:51 | MHC.PC.OV ---
Vital Signs 09/12/24 09:57 Height 5 ft 5.5 in Weight 160 lb BMI 26.2 BP 138/80 Blood Pressure Location Rt brachial Position Sitting Pulse 75 Pulse Source Pulse Oximeter Pulse Oximetry (%) 97 Oxygen Delivery Method Room Air Intake Visit Reasons: 6 month follow up Intake Note: Pt is here today for her 6mo. f/u Allergies barium sulfate Allergy (Unknown, Verified 09/12/24 10:35) couldn't put head down or would pass out loratadine [Claritin] Allergy (Unknown, Verified 09/12/24 10:35) heebie jeebies like going to jump out of skin varenicline [From Chantix] Allergy (Unknown, Verified 09/12/24 10:35) couldnt put head down or would pass out azithromycin Adverse Reaction (Unknown, Verified 09/12/24 10:35) intestinal pain tiotropium [Spiriva with HandiHaler] Adverse Reaction (Unknown, Verified 09/12/24 10:35) coughing fits Medication List - Last Reconciled 09/12/24 by Anali Bartholomew MD albuterol sulfate 90 mcg/actuation 2 puffs inhalation Q4-6H PRN calcium carbonate-vitamin D3 500 mg-3.125 mcg (125 unit) 1 tab PO DAILY fluticasone propionate 50 mcg/actuation (Flonase Allergy Relief) 1 spray intranasal DAILY ibuprofen 200 mg PO Q6H PRN levocetirizine 5 mg PO QPM PRN multivitamin 1 tab PO DAILY Tobacco use date assessed: 09/12/24 Fall risk assessment: No Falls in past year Last assessed Fall Risk: 09/12/24 Dental Screening Dental Screen Date: 09/12/24 Did you have a dental visit in the last 12 months?: Yes Did you have a dental problem in the last 6 months where you did not have access to dental care?: No HPI 6 month follow up HPI Details 73 year old lady with history of allergic rhinitis, COPD, prediabetes, hypertension hyperlipidemia, here today for follow-up. Complaining of frequent episodes of wheezing and cough, worse over the last several weeks. Has been using her albuterol inhaler more often than usual at least every other day. [facility] Medical History Impaired fasting glucose Dyslipidemia Allergic rhinitis Normal colonoscopy Osteoarthritis Seasonal allergies COPD (chronic obstructive pulmonary disease) Surgical History History of lung surgery History of appendectomy Status post dilation and curettage History of colonoscopy History of adenoidectomy History of tonsillectomy Family History Father Colon cancer Substance use disorder Mother CVD (cardiovascular disease) Arteriosclerotic heart disease (ASHD) Mental health disorder Brother Colon polyps Substance use disorder Maternal Aunt Stomach cancer Brother Hemochromatosis Daughter No problems noted. Daughter No problems noted. Sister No problems noted. Sister No problems noted. Sister No problems noted. Sister Substance use disorder Sister Substance use disorder Sister No problems noted. Sister No problems noted. Sister No problems noted. Social History Housing: Apartment Are you a primary senior care provider to a significant other at home: No Do you presently have visiting nurse or other home services: No Alcohol intake: current Alcohol intake frequency: a few times a month Patient Tobacco Use Status: Former Tobacco user Tobacco use type: Smokeless Tobacco e-Cigarette/Vaping Use: Currently Using Second Hand Smoke Exposure: Yes service: No Current occupational status: employed Cognitive needs: No Hearing needs: No Vision needs: Yes Questionnaire PHQ-9 Over the last 2 weeks, how often have you been bothered by any of the following problems? 1. Little interest or pleasure in doing things: not at all 2. Feeling down, depressed, or hopeless: not at all 3. Trouble falling or staying asleep, or sleeping too much: not at all 4. Feeling tired or having little energy: not at all 5. Poor appetite or overeating: not at all 6. Feeling bad about yourself - or that you are a failure or have let yourself or your family down: not at all 7. Trouble concentrating on things, such as reading the newspaper or watching television: not at all 8. Moving or speaking so slowly that other people could have noticed. Or the opposite - being so fidgety or restless that you have been moving around a lot more than usual: not at all 9. Thoughts that you would be better off or of hurting yourself in some way: not at all Total score: 0 Source: Developed by Drs. Peterson Barakat, Melissa Ramos, Leodan Olivas and colleagues, with an educational kika from [employer] Thrive Questionnaire Date Thrive assessed: 09/12/24 I am a: Patient What is your living situation today?: I have a steady place to live Within the past 12 months, did the food you bought not last and you didn't have the money to get more?: Never true Within the past 12 months, did you worry whether your food would run out before you got money to buy more?: Never true Do you have trouble paying for medicines?: No Do you have trouble getting transportation to medical appointments?: No Do you have trouble paying your heating and electricity bill?: No Do you have trouble taking care of your child, family member or friend?: No Do you have trouble with day-to-day activities such as bathing, preparing meals, shopping, managing finances, etc.?: No Are you currently unemployed and looking for a job?: No Are you interested in more education?: No Please select the resources that you would like help with: None Currently or been in a relationship where the following occur: No concerns reported THRIVE Score: 0 AUDIT C Alcohol Use Questionnaire (AUDIT-C) 1. How often do you have a drink containing alcohol?: 2-3 times a week 2. How many drinks containing alcohol do you have on a typical day when you are drinking?: 1 or 2 3. How often do you have six or more drinks on one occasion?: Never Total Score: 3 SARAH-7 AMB Questionnaire SARAH-7 Date SARAH - 7 assessed: 09/12/24 Feeling nervous, anxious, or on edge: 0 = Not at all Not being able to stop or control worryin = Not at all Worrying too much about different things: 0 = Not at all Trouble relaxin = Not at all Being so restless that it is hard to sit still: 0 = Not at all Becoming easily annoyed or irritable: 0 = Not at all Feeling afraid as if something awful might happen: 0 = Not at all Total SARAH-7 score (0-4 normal; 5-9 mild; 10-14 moderate; 15-21 severe): 0 Source: Developed by Drs. Peterson Barakat, Melissa Ramos, Leodan Olivas and colleagues, with an educational kika from [employer] SARAH-7 Assessment Billing SARAH-7 Assessment Tool: SARAH-7 Assessment 20776 Review of Systems Const Denies difficulty sleeping, Denies fever(s), Denies frequent falls, Denies malaise and Denies weakness Eyes Denies change in vision ENT Reports nasal congestion (Usually early mornings), Reports post nasal drip, Denies sinus pain, Denies sore throat and Denies throat swelling Card Denies chest pain, Denies syncope and Denies dyspnea Resp Denies dyspnea GI Denies abdominal pain, Denies change in bowel habits and Denies heartburn Musc Denies abnormal gait Skin/Breast Denies lesions and Denies rash Neuro Denies abnormal gait, Denies syncope, Denies frequent falls and Denies weakness Psych Reports no additional complaints Aller/Immun Denies throat swelling Physical exam (Primary Care) Vital Signs: Last Vital Signs Pulse 75 09/12/24 09:57 BP 138/80 09/12/24 09:57 Pulse Ox 97 09/12/24 09:57 Oxygen Delivery Method Room Air 09/12/24 09:57 BMI result Body Mass Index 26.2 Tobacco/Smoking Status: Tobacco use Status Tobacco use date assessed 09/12/24 09/12/24 10:01 Patient Tobacco Use Status Former Tobacco user 09/12/24 09:53 Tobacco use type Smokeless Tobacco 09/12/24 09:53 e-Cigarette/Vaping Use Currently Using 09/12/24 09:53 PHQ-9: PHQ-9 Score PHQ-9: Total score 0 09/12/24 10:49 Thrive Assessment: Date of Thrive Assessment Date Thrive assessed 09/12/24 09/12/24 10:01 Currently or been in a relationship where the following occur: No concerns reported Const Orientation/consciousness: patient oriented x3 HENMT Head: Yes normocephalic General nose exam: Normal external nose present and No nasal discharge present Face and sinus: Yes face symmetric Mouth: oropharynx normal and moist mucous membranes Neck Other: Supple with no lymphadenopatyh Resp Effort & Inspection: normal respiratory effort and able to speak in complete sentences Auscultation: clear to auscultation bilaterally Cardio Other: S1-S2 present regular rate and rhythm GI Palpation (GI): Soft to palpation, nontender, no guarding and no masses Auscultation: normal bowel sounds Neuro General: patient oriented x3, gait normal, tone normal, moves all extremities and no focal motor deficits Extrem General: Yes full ROM, Yes no joint enlargement, Yes no clubbing, cyanosis or edema, Yes no calf tenderness and Yes normal gait Results Reviewed Results Reviewed: Laboratory Tests 09/08/24 07:36 Estimat Average Glucose 108 Hemoglobin A1c % 5.4 Name: Vanessa Prieto Age/Sex: 73/F : 1950 Unit#: [id number] Attend Dr: Anali Bartholomew MD Re09/08/24 Status: DEP REF Location: [facility] Disch: SPEC : [id number] MILA: 09/08/24 STATUS: COMP REQ : [id number] RECD: 09/08/[address]: Anali Barhtolomew MD COMP: 09/08/24 ENTERED: 09/08/[address] [facility] [address]: ORDERED: Glu Fasting, Lipid Panel, Vitamin D 25-OH Test Result Flag Reference FBS 101 H 60-99 mg/dL A fasting glucose from 100-125 mg/dl is considered impaired (pre-diabetes). Triglyceride 76 <150 mg/dL Desirable Triglyceride: less than 150 mg/dL Borderline High Triglyceride 150-199 mg/dL High Triglyceride: 200-499 mg/dL Very High Triglyceride: greater than or equal to 5OO mg/dL Cholesterol 207 H <200 mg/dL Desirable Cholesterol: less than 200 mg/dL Borderline High Cholesterol: 200-239 mg/dL High Cholesterol: greater than 239 mg/dL LDL Calculated 100 H <100 mg/dL Desirable LDL: less than 100 mg/dL Near Optimal/Above Optimal LDL: 110-129 mg/dL Borderline High LDL: 130-159 mg/dL High LDL: 160-189 mg/dL Very High LDL: greater than or equal to 190 mg/dL HDL 92 >40 mg/dL Desirable HDL: greater than 40 mg/dL Note: This HDL assay may give artificially low results in patients with liver disease. Vit D 25-OH Tot 30.1 >30 ng/mL Health Based Reference Values* < 20 ng/mL Deficient 20-30 ng/mL Insufficient > 30 ng/mL Sufficient Coding Level of Care Code Est Pt Level 4 (11728) Diagnoses Chronic obstructive pulmonary disease with acute exacerbation J44.1 COPD type: COPD with acute exacerbation Impaired fasting glucose R73.01 Dyslipidemia E78.5 Seasonal allergies J30.2 Additional Codes SARAH-7 Assessment Billing - SARAH-7 Assessment Tool: SARAH-7 Assessment 02238 ([id number]) Assessment & Plan Assessment & Plan (1) COPD (chronic obstructive pulmonary disease): Code(s): J44.9 - Chronic obstructive pulmonary disease, unspecified Category: Medical Qualifiers: COPD type: COPD with acute exacerbation Qualified Code(s): J44.1 - Chronic obstructive pulmonary disease with (acute) exacerbation Plan: Continue with albuterol inhaler used as needed for episodes of bronchospasm , has been using more than twice a week this past few weeks, will start on Dulera 100-5 mg per actuation, 2 puffs inhalation every 12 hours , reminded to rinse mouth after each use. Follow-up in a month if no improvement of symptoms on Dulera (2) Impaired fasting glucose: Code(s): R73.01 - Impaired fasting glucose Category: Medical Plan: fasting blood sugars were elevated above 100 mg/dL. Latest hemoglobin A1c is within normal limits Impaired glucose metabolism increases the risk for developing diabetes mellitus type 2, as well as heart attack and stroke later on. Lifestyle changes that promotes weight loss, healthy eating habits, and regular exercise are important, and can prevent the progression to diabetes (3) Dyslipidemia: Code(s): E78.5 - Hyperlipidemia, unspecified Category: Medical Plan: Latest fasting lipids are within normal limits, continue with adherence to healthy eating habits and getting regular exercise. (4) Seasonal allergies: Code(s): J30.2 - Other seasonal allergic rhinitis Category: Medical Plan: Continue with levo cetirizine 5 mg at night as needed and use of fluticasone propionate nasal spray as needed for nasal congestion Medications: New Dulera 100-5 mcg/actuation (mometasone-formoterol) 2 puffs inhalation Q12H 13 grams 0RF NS J44.1 - Chronic obstructive pulmonary disease with (acute) exacerbation Refilled albuterol sulfate 90 mcg/actuation 2 puffs inhalation Q4-6H PRN 8.5 grams 2RF Wheezing
[2024-09-12 09:57] VITALS: BP 138/80; PULSE 75; O2SAT 97; BMI 26.2
--- OUTSIDE RECORDS SUMMARY | 2024-09-14 13:49 | XMS_ITS | Patient Health Record ---
Author Organization [facility] Address [address] [place] [address] Care Team Providers Care Bus Steward Name Role Phone Puma MARIN, Anali Primary [...] Problem Colon cancer screening (Z12.11) Active confirmed [id number] Problem Encounter for other preprocedural examination (Z01.818) Active confirmed [id number] PLAN OF TREATMENT Future Test Test Name Order Date COLONOSCOPY 08/22/2015 COLONOSCOPY 03/13/2021 Insurance Providers Payer Name Payer Address Payer Phone Subscriber Number Group Number Insured Name Patient Relationship to Insured Coverage Start Date Coverage End Date MEDICARE OF [place] [address] [place] [id number] [phone] [id number] ABIODUN ESCOBAR Self - patient is the insured MEDEX ATTN CLAIMS [address] [place] [address] [phone] [id number] ABIODUN ESCOBAR Self - patient is the insured MEDICAL (GENERAL) HISTORY Medical History History ICD Code colonoscopy 12/07/15, five-year followup hyperplastic colon polyps hemorrhoids anxiety COPD hypertension Surgical History Surgery Date(Month/Year) appendectomy tonsillectomy lung surgery due to collapsed lung adenoidectomy
== END 2024-09-12 10:45 | disposition home or self-care (01) ==
PROVIDERS: PCP Internal Medicine; Visit Provider Internal Medicine
DX: J44.1 Chronic obstructive pulmonary disease with (acute) exacerbation (principal); R73.01 Impaired fasting glucose; E78.5 Hyperlipidemia, unspecified; J30.2 Other seasonal allergic rhinitis

== ENCOUNTER → 2024-09-12 09:12 | Outpatient (BNVA) | payer MEDICARE, SELFPAY | PROVIDERS: PCP Internal Medicine; Visit Provider Internal Medicine | DX: R44.1 Visual hallucinations (principal); R73.01 Impaired fasting glucose; E78.5 Hyperlipidemia, unspecified; J30.2 Other seasonal allergic rhinitis | CPT/HCPCS: 96127; 99212 ==

== ENCOUNTER 2024-09-20 08:01 | Outpatient (REF) | payer MEDICARE, SELFPAY ==
[2024-09-20 11:26] LABS: Influenza A PCR NEGATIVE (Negative); Influenza B PCR NEGATIVE (Negative); Resp Syncy Virus RNA Qual PCR NEGATIVE (Negative); SARS COV2 PCR INHOUSE NEGATIVE (Negative)
== END 2024-09-20 08:02 | disposition home or self-care (01) ==
LOC: HO.LAB 08:01
PROVIDERS: PCP Internal Medicine; Visit Provider Physician Assistant
DX: J06.9 Acute upper respiratory infection, unspecified (principal)
CPT/HCPCS: 0241U; 99212

== ENCOUNTER 2024-09-20 08:01 | Outpatient (AMB) | payer MEDICARE, SELFPAY ==
--- OUTSIDE RECORDS SUMMARY | 2024-09-20 08:03 | XMS_ITS | Patient Health Record ---
Author Organization [facility] Address [address] [place] [address] Care Team Providers Care Manager Pacu Name Role Phone Puma MARIN, Anali Primary Care Provider Brent Logan Jr Unavailable [phone] ALLERGIES Allergen (clinical drug ingredient) Drug/Non Drug [...] Problem Colon cancer screening (Z12.11) Active confirmed [id number] Problem Encounter for other preprocedural examination (Z01.818) Active confirmed [id number] PLAN OF TREATMENT Future Test Test Name Order Date COLONOSCOPY 08/22/2015 COLONOSCOPY 03/13/2021 Insurance Providers Payer Name Payer Address Payer Phone Subscriber Number Group Number Insured Name Patient Relationship to Insured Coverage Start Date Coverage End Date [place]ARE OF [place] [address] [place] [id number] ABIODUN ESCOBAR Self - patient is the insured MEDEX ATTN CLAIMS [address] [place] [address] [id number] ABIODUN ESCOBAR Self - patient is the insured MEDICAL (GENERAL) HISTORY Medical History History ICD Code colonoscopy 12/07/15, five-year followup hyperplastic colon polyps hemorrhoids anxiety COPD hypertension Surgical History Surgery Date(Month/Year) appendectomy tonsillectomy lung surgery due to collapsed lung adenoidectomy
[2024-09-20 08:09] VITALS: BP 130/82; PULSE 84; TEMP 36.7; O2SAT 98
--- NOTE | 2024-09-20 08:09 | MHC.OFFWIV ---
Intake Vital Signs 09/20/24 08:09 Weight 160 lb BP 130/82 Blood Pressure Location Lt brachial Position Sitting Pulse 84 Pulse Source Pulse Oximeter Temp 98.1 F Temp Source Oral Pulse Oximetry (%) 98 Oxygen Delivery Method Room Air Intake Visit Reasons: EP Cold, PUBLIC INFORMATION COORDINATOR/med reaction Intake Note: Patient here SOB, congestion and chest tightness that started yesterday afternoon. Patient Tobacco Use Status: Former Tobacco user Allergies barium sulfate Allergy (Unknown, Verified 09/20/24 08:20) couldn't put head down or would pass out loratadine [Claritin] Allergy (Unknown, Verified 09/20/24 08:20) heebie jeebies like going to jump out of skin varenicline [From Chantix] Allergy (Unknown, Verified 09/20/24 08:20) couldnt put head down or would pass out azithromycin Adverse Reaction (Unknown, Verified 09/20/24 08:20) intestinal pain tiotropium [Spiriva with HandiHaler] Adverse Reaction (Unknown, Verified 09/20/24 08:20) coughing fits Do you need a note to return to daycare/school/sports/work: No HPI HPI Comments History of Present Illness Details History The patient is a 73-year-old female presenting with upper respiratory symptoms and exacerbation of COPD. She reports having contracted a cold from her sister, with symptoms beginning on Thursday. The patient's current symptoms include shortness of breath, chest tightness, and nasal congestion. No fever, sinus pain, or otalgia was reported. She reported an episode of extreme fatigue last week, which led her to reduce the dosage of her Dulera inhaler from two puffs to one per the original 12-hour dosing schedule. The patient's sister tested negative for COVID-19. The patient has a history of COPD, which was being managed previously with an albuterol inhaler and added Dulera one week ago. The patient mentioned that they had significant tiredness, dizziness, and sleepiness that they associated with the medication dosage. The patient declined a chest x-ray and preferred to wait to see if her condition improves before taking additional tests. The patient has made use of [id number] medications without much effect. Previous treatments for similar symptoms included penicillin and prednisone which showed positive results. Physical Exam General: Cooperative, healthy appearing, comfortable and no acute distress Orientation/consciousness: Patient oriented x3 Limitations: No limitations Head: Normal to inspection Ears: Hearing grossly normal bilaterally, external ears normal and TM's normal bilaterally Nose: Normal external nose present, Normal nares present and No nasal discharge present Face and sinus: Normal facial exam and Yes sinuses nontender Mouth: Normal oral and palatal mucosa present and moist mucous membranes Throat: Yes tonsils normal, Yes uvula midline. Posterior oropharynx erythema Eyes: Appearance normal, both eyes and all related structures Neck: Normal visual inspection Respiratory: Expiratory wheezes bilaterally. Normal respiratory effort, able to speak in complete sentences, Actively coughing, no respiratory distress, not tachypneic, no tripod positioning and no use of accessory muscles Cardiovascular: Regular rate and rhythm. Normal S1 and S2 Skin: No rashes or lesions noted Neuro: Patient oriented x3 Extremities: Normal to inspection and Yes no clubbing, cyanosis or edema PFSH Medical History Impaired fasting glucose Dyslipidemia Allergic rhinitis Normal colonoscopy Osteoarthritis Seasonal allergies COPD (chronic obstructive pulmonary disease) Surgical History History of lung surgery History of appendectomy Status post dilation and curettage History of colonoscopy History of adenoidectomy History of tonsillectomy Family History Father Colon cancer Substance use disorder Mother CVD (cardiovascular disease) Arteriosclerotic heart disease (ASHD) Mental health disorder Brother Colon polyps Substance use disorder Maternal Aunt Stomach cancer Brother Hemochromatosis Daughter No problems noted. Daughter No problems noted. Sister No problems noted. Sister No problems noted. Sister No problems noted. Sister Substance use disorder Sister Substance use disorder Sister No problems noted. Sister No problems noted. Sister No problems noted. Social History Housing: Apartment Are you a primary resident care spec to a significant other at home: No Do you presently have visiting nurse or other home services: No Alcohol intake: current Alcohol intake frequency: a few times a month Patient Tobacco Use Status: Former Tobacco user Tobacco use type: Smokeless Tobacco e-Cigarette/Vaping Use: Currently Using Second Hand Smoke Exposure: Yes service: No Current occupational status: employed Cognitive needs: No Hearing needs: No Vision needs: Yes Review of Systems Const All systems reviewed & are unremarkable except as noted in HPI and below Physical Exam Vital Signs: Last Vital Signs Temp 98.1 F 09/20/24 08:09 Pulse 84 09/20/24 08:09 BP 130/82 09/20/24 08:09 Pulse Ox 98 09/20/24 08:09 Oxygen Delivery Method Room Air 09/20/24 08:09 Assessment & Plan Assessment & Plan (1) URI, acute: Code(s): J06.9 - Acute upper respiratory infection, unspecified Plan: as below (2) COPD exacerbation: Code(s): J44.1 - Chronic obstructive pulmonary disease with (acute) exacerbation Plan: Plan - Prescribe prednisone for the management of COPD exacerbation. Dosage set for five days at 40 mg per day. - Prescribed a Z-Sahil, advising careful monitoring due to history of gastrointestinal discomfort, with instruction to take with food. - Tested for flu, COVID, and RSV; results to be communicated to the patient. - Ensure patient understands the instructions for the Dulera inhaler, resuming the initially prescribed dosage as symptoms allow. - Chest x-ray ordered for symptom progression or persistence. - Patient advised on the use of a Duoneb nebulizer treatment in office, though declined at present. Patient was informed and verbally consented to the use of an ambient scribe for clinic note documentation during this visit Orders: Orders SARS-CoV2/FLU/RSV Today J06.9 - Acute upper respiratory infection, unspecified XR chest 2V Today R05.9 - Cough, unspecified Medications: New prednisone 40 mg (2 x 20 mg) PO DAILY 10 tabs 0RF azithromycin For 250 mg dose pack: take 500 mg today (day 1), then 250 mg for 4 days (days 2-5) PO 6 tabs 0RF Coding Level of Care Code Est Pt Level 4 (74163) Diagnoses URI, acute J06.9 COPD exacerbation J44.1
== END 2024-09-20 09:08 | disposition home or self-care (01) ==
PROVIDERS: PCP Internal Medicine; Visit Provider Physician Assistant
DX: J06.9 Acute upper respiratory infection, unspecified (principal); J44.1 Chronic obstructive pulmonary disease with (acute) exacerbation

== ENCOUNTER 2024-09-22 13:01 | Outpatient (REF) | payer MEDICARE, MEDICAID, SELFPAY ==
--- NOTE | ~2024-09-22 | XR_ITS ---
EXAMINATION: XR CHEST CLINICAL INFORMATION: R05.9 - Cough, unspecified COMPARISON: None available. TECHNIQUE: 2 views of the chest were obtained. FINDINGS: No significant abnormality is noted involving the heart, lungs, mediastinum, bony thorax or soft tissues. XR/XR chest 2V IMPRESSION: Unremarkable examination. Electronically signed by: Sathish Fontana MD 09/25/2024 10:09 AM [facility]
== END 2024-09-22 13:02 | disposition home or self-care (01) ==
LOC: HO.HMGCX 13:01
PROVIDERS: PCP Internal Medicine; Visit Provider Physician Assistant
DX: J06.9 Acute upper respiratory infection, unspecified (principal); J44.1 Chronic obstructive pulmonary disease with (acute) exacerbation; R05.9 Cough, unspecified
CPT/HCPCS: 71046; 94640; 99212

== ENCOUNTER 2024-09-22 13:01 | Outpatient (AMB) | payer MEDICARE, SELFPAY ==
--- OUTSIDE RECORDS SUMMARY | 2024-09-22 13:02 | XMS_ITS | Patient Health Record ---
Author Organization [facility] Address [address] [place] [address] Care Team Providers Care Press Loader Name Role Phone Puma MARIN, Anali Primary [...] Problem Colon cancer screening (Z12.11) Active confirmed [id number] Problem Encounter for other preprocedural examination (Z01.818) Active confirmed [id number] PLAN OF TREATMENT Future Test Test Name Order Date COLONOSCOPY 08/22/2015 COLONOSCOPY 03/13/2021 Insurance Providers Payer Name Payer Address Payer Phone Subscriber Number Group Number Insured Name Patient Relationship to Insured Coverage Start Date Coverage End Date MEDICARE OF [place] [address] [place] [id number] ABIODUN ESCOBAR Self - patient is the insured MEDEX ATTN CLAIMS [address] [place] [phone] [id number] ABIODUN ESCOBAR Self - patient is the insured MEDICAL (GENERAL) HISTORY Medical History History ICD Code colonoscopy 12/07/15, five-year followup hyperplastic colon polyps hemorrhoids anxiety COPD hypertension Surgical History Surgery Date(Month/Year) appendectomy tonsillectomy lung surgery due to collapsed lung adenoidectomy
--- NOTE | 2024-09-22 13:28 | AM.OFFWIN_ITS ---
Intake Vital Signs 09/22/24 13:30 Weight 160 lb BP 142/78 H Blood Pressure Location Rt brachial Position Sitting Pulse 86 Pulse Source Pulse Oximeter Temp 97.7 F Temp Source Oral Pulse Oximetry (%) 93 Oxygen Delivery Method Room Air Intake Visit Reasons: EP still sob, cold symptoms Intake Note: Patient here for SOB, she states she was put on antibiotics and prednisone and has not noticed any improvement. Patient Tobacco Use Status: Former Tobacco user Allergies barium sulfate Allergy (Unknown, Verified 09/20/24 08:20) couldn't put head down or would pass out loratadine [Claritin] Allergy (Unknown, Verified 09/20/24 08:20) heebie jeebies like going to jump out of skin varenicline [From Chantix] Allergy (Unknown, Verified 09/20/24 08:20) couldnt put head down or would pass out azithromycin Adverse Reaction (Unknown, Verified 09/20/24 08:20) intestinal pain tiotropium [Spiriva with HandiHaler] Adverse Reaction (Unknown, Verified 09/20/24 08:20) coughing fits HPI HPI Comments History of Present Illness Details History The patient is a 73-year-old female presenting with worsening respiratory status and suspected pneumonia. She was initially seen on September 20 for a COPD exacerbation 2/2 URI, at which time she was prescribed a course of azithromycin (Z-Sahil) and prednisone. She was tested for influenza, COVID-19, and RSV, all of which returned negative results. No chest x-ray was performed at that time as pt declined but it was ordered if she changed her mind. She also declined an in office nebulizer treatment but is asking for it today. The patient reports that she has been taking prednisone at a dosage of 40 mg daily, with today being the third day. Despite adherence to the medication regimen, her condition has not improved, and she feels worse. The patient mentions difficulty getting moving in the morning, indicating increasing respiratory effort. Her oxygen saturation, previously at 98% on room air, has decreased to 93%. This change raises suspicion for pneumonia development. She reports experiencing a gastrointestinal upset, specifically diarrhea, which she attributes to dietary changes rather than medication effects. Physical Exam General: Cooperative, tired appearing, comfortable and no acute distress Orientation/consciousness: Patient oriented x3 Limitations: No limitations Head: Normal to inspection Ears: Hearing grossly normal bilaterally, external ears normal and TM's normal bilaterally Nose: Normal external nose present, Normal nares present and No nasal discharge present Face and sinus: Normal facial exam and Yes sinuses nontender Mouth: Normal oral and palatal mucosa present and moist mucous membranes Throat: Yes tonsils normal, Yes uvula midline. Posterior oropharynx erythema Eyes: Appearance normal, both eyes and all related structures Neck: Normal visual inspection Respiratory: Expiratory wheezes throughout, vesicular lung sounds. Normal respiratory effort, able to speak in complete sentences, Actively coughing, no respiratory distress, not tachypneic, no tripod positioning and no use of accessory muscles Cardiovascular: Regular rate and rhythm. Normal S1 and S2 Skin: No rashes or lesions noted Neuro: Patient oriented x3 Extremities: Normal to inspection and Yes no clubbing, cyanosis or edema [facility] Medical History Impaired fasting glucose Dyslipidemia Allergic rhinitis Normal colonoscopy Osteoarthritis Seasonal allergies COPD (chronic obstructive pulmonary disease) Surgical History History of lung surgery History of appendectomy Status post dilation and curettage History of colonoscopy History of adenoidectomy History of tonsillectomy Family History Father Colon cancer Substance use disorder Mother CVD (cardiovascular disease) Arteriosclerotic heart disease (ASHD) Mental health disorder Brother Colon polyps Substance use disorder Maternal Aunt Stomach cancer Brother Hemochromatosis Daughter No problems noted. Daughter No problems noted. Sister No problems noted. Sister No problems noted. Sister No problems noted. Sister Substance use disorder Sister Substance use disorder Sister No problems noted. Sister No problems noted. Sister No problems noted. Social History Housing: Apartment Are you a primary social worker palliative care to a significant other at home: No Do you presently have visiting nurse or other home services: No Alcohol intake: current Alcohol intake frequency: a few times a month Patient Tobacco Use Status: Former Tobacco user Tobacco use type: Smokeless Tobacco e-Cigarette/Vaping Use: Currently Using Second Hand Smoke Exposure: Yes service: No Current occupational status: employed Cognitive needs: No Hearing needs: No Vision needs: Yes Review of Systems Const All systems reviewed & are unremarkable except as noted in HPI and below Physical Exam Vital Signs: Last Vital Signs Temp 97.7 F 09/22/24 13:30 Pulse 86 09/22/24 13:30 BP 142/78 H 09/22/24 13:30 Pulse Ox 93 09/22/24 13:30 Oxygen Delivery Method Room Air 09/22/24 13:30 Office Procedures Nebulizer Treatment Nebulizer Treatment 52818-Nnybicktp/MDI RX initial, or Nebulizer Subsequent Treatment Office Meds ipratropium 0.5 mg-albuterol 3 mg (2.5 mg base)/3 mL nebulization soln Performing Provider: Josselin Anthony PA-C Performing Location: [facility] Administered by: Josselin Anthony PA-C on 09/22/24 13:55 Dose Route Admin Location Dispensed Lot Number Expiration Date NDC [employer] 3 mL inhalation 3 mL [id number] 12/02/25 36480-052-20 [employer] Assessment & Plan Assessment & Plan (1) COPD exacerbation: Code(s): J44.1 - Chronic obstructive pulmonary disease with (acute) exacerbation Plan: Plan - Administer nebulizer treatment in the office with DuoNeb to aid in bronchodilation and respiratory function enhancement. Pt had a good response, breathing easier, lungs clearer though still exp wheeze. - Order a chest x-ray to assess for the presence of pneumonia. - If pneumonia is confirmed on imaging, initiate antibiotic therapy with Augmentin to ensure broad-spectrum bacterial coverage. - Pt should continue prednisone and zpak - Monitor and manage potential gastrointestinal side effects related to medication or diet, and phone counselor the patient accordingly. Patient was informed and verbally consented to the use of an ambient scribe for clinic note documentation during this visit (2) URI, acute: Code(s): J06.9 - Acute upper respiratory infection, unspecified Plan: as above Orders: Orders AMB Nebulizer Treatment Today J06.9 - Acute upper respiratory infection, unspecified, J44.1 - Chronic obstructive pulmonary disease with (acute) exacerbation Coding Level of Care Code Est Pt Level 4 (05915) Diagnoses COPD exacerbation J44.1 URI, acute J06.9 CPT Codes Nebulizer Treatment - Nebulizer Treatment, initial or subsequent: 69434- Nebulizer/MDI RX initial, or Nebulizer Subsequent Treatment ([id number])
[2024-09-22 13:30] VITALS: BP 142/78; PULSE 86; TEMP 36.5; O2SAT 93
== END 2024-09-22 14:15 | disposition home or self-care (01) ==
PROVIDERS: PCP Internal Medicine; Visit Provider Physician Assistant
DX: J44.1 Chronic obstructive pulmonary disease with (acute) exacerbation (principal); J06.9 Acute upper respiratory infection, unspecified

== ENCOUNTER 2024-09-24 14:39 | Emergency (ER) | payer MEDICARE, MEDICAID, SELFPAY ==
[2024-09-24 14:58] VITALS: BP 140/71; PULSE 90; RESP 22; TEMP 36.8; O2SAT 92; BMI 26.3
--- NOTE | 2024-09-24 14:58 | ED_ITS ---
HPI - SOB/Dyspnea General Chief Complaint: Upper Respiratory Symptoms Stated Complaint: diff breathing Time Seen by Provider: 09/24/24 15:50 Related Data Home Medications ?Medication ?Instructions ?Recorded ?Confirmed calcium 500 mg (as 1 tab PO DAILY 04/05/21 09/12/24 carbonate)-vitamin D3 3.125 mcg (125 unit) tablet multivitamin 1 tab PO DAILY 04/05/21 09/12/24 ibuprofen 200 mg capsule 200 mg PO Q6H PRN 03/09/24 09/12/24 Previous Rx's ?Medication ?Instructions ?Recorded fluticasone propionate 50 1 spray intranasal DAILY #16 grams 01/09/22 mcg/actuation nasal spray,suspension (Flonase Allergy Relief) Dulera 100 mcg-5 mcg/actuation HFA 2 puff inhalation Q12H #13 grams 09/12/24 aerosol inhaler (mometasone-formoterol) albuterol sulfate 90 mcg/actuation 2 puff inhalation Q4-6H PRN 09/12/24 aerosol inhaler Wheezing #8.5 grams azithromycin 250 mg tablet See Rx Instructions PO .COMPLEX #6 09/20/24 tabs prednisone 20 mg tablet 40 mg (2 x 20 mg) PO DAILY #10 tabs 09/20/24 inhalational spacing device (Mark #1 ea 09/24/24 Aerosol Stutsman Enhancer spacer) prednisone 50 mg tablet 50 mg PO DAILY 5 days #5 tabs 09/24/24 Nebulizer with supplies #1 ea 09/26/24 albuterol sulfate 2.5 mg/3 mL 2.5 mg (3 mL) inhalation Q6H PRN 09/26/24 (0.083 %) solution for nebulization shortness of breath or wheezing #75 mL prednisone 5 mg tablet 5 mg PO DIRECTED #78 tabs 09/26/24 Allergies Allergy/AdvReac Type Severity Reaction Status Date / Time barium sulfate Allergy Unknown couldn't Verified 09/26/24 12:05 put head down or would pass out loratadine [Claritin] Allergy Unknown heebie Verified 09/26/24 12:05 jeebies like going to jump out of skin varenicline [From Chantix] Allergy Unknown couldnt Verified 09/26/24 12:05 put head down or would pass out azithromycin AdvReac Unknown intestinal Verified 09/26/24 12:05 pain tiotropium AdvReac Unknown coughing Verified 09/26/24 12:05 [Spiriva with HandiHaler] fits PMFSH Past Medical History Medical History Impaired fasting glucose Dyslipidemia Allergic rhinitis Normal colonoscopy Osteoarthritis Seasonal allergies COPD (chronic obstructive pulmonary disease) Surgical History History of lung surgery History of appendectomy Status post dilation and curettage History of colonoscopy History of adenoidectomy History of tonsillectomy Family History Family History Father Colon cancer Substance use disorder Mother CVD (cardiovascular disease) Arteriosclerotic heart disease (ASHD) Mental health disorder Brother Colon polyps Substance use disorder Maternal Aunt Stomach cancer Brother Hemochromatosis Daughter No problems noted. Daughter No problems noted. Sister No problems noted. Sister No problems noted. Sister No problems noted. Sister Substance use disorder Sister Substance use disorder Sister No problems noted. Sister No problems noted. Sister No problems noted. Social History Social History Housing: Apartment Are you a primary care analyst to a significant other at home: No Do you presently have visiting nurse or other home services: No Alcohol intake: current Alcohol intake frequency: a few times a month Alcohol type: beer Patient Tobacco Use Status: Former Tobacco user Tobacco use type: Smokeless Tobacco Smoked in Last 30 Days: Yes e-Cigarette/Vaping Use: Currently Using Second Hand Smoke Exposure: Yes Use of substances other than those prescribed or required for medical reasons: No Advance Directives: No Advance Directives Information Provided: Yes Do you have a plan to hurt others: No Plan service: No Current occupational status: employed Cognitive needs: No Hearing needs: No Vision needs: Yes Physical Exam 2 Vital Signs: Vital Signs: Last Vital Signs Temp 97.2 F 09/24/24 18:45 Pulse 90 09/24/24 18:45 Resp 14 09/24/24 18:45 BP 129/57 L 09/24/24 18:45 Pulse Ox 95 09/24/24 18:45 O2 Del Method Room Air 09/24/24 18:45 BMI result Body Mass Index 26.3 Course Course Course Narrative: This is a Rapid Medical Exam performed in triage by Jennifer Shaffer PA-C. Full HPI, ROS and PE to be performed by primary ED provider. 73-year-old female with a past medical history of COPD, OA presenting to the ED c/o COPD exacerbation and suspected pneumonia with cough, SOB x5 days. Has been evaluated at urgent care on 09/20 and 09/22 initiated on Z-Sahil and prednisone. X-ray was obtained however not read yet by Radiology. Reports persistent symptoms. + subjective fever/chills PE: Talking in short sentences. Expiratory wheeze and rhonchi Plan: EKG, labs, viral studies, CXR, ED bronchodilator protocol Medications Administered Discontinued Medications Generic Name Dose Route Start Last Admin Trade Name Freq PRN Reason Stop Dose Admin Albuterol Sulfate 5 mg/ 7.5 mg 09/24/24 15:54 09/24/24 16:00 Albuterol Sulfate 2.5 mg INHALE 09/24/24 15:55 7.5 mg ONCE ONE Administration Albuterol Sulfate 2.5 mg 09/24/24 16:29 09/24/24 17:53 Albuterol Sulfate (0.083%) 2.5 Mg/3 Ml Vial.Neb INHALE 09/24/24 16:30 2.5 mg ONCE ONE Administration Guaifenesin 1,200 mg 09/24/24 16:19 09/24/24 16:57 Guaifenesin La 600 Mg Tab.Er.12h PO 09/24/24 16:20 1,200 mg ONCE ONE Administration Methylprednisolone Sodium Succinate 80 mg 09/24/24 16:16 09/24/24 16:57 Methylprednisolone Sod Succ 125 Mg/2 Ml Vial IVPUSH 09/24/24 16:17 80 mg ONCE ONE Administration Medical Decision Making Lab Data 09/24/24 15:33 09/24/24 15:33 Labs: Lab Results 09/24/24 Range/Units 15:33 WBC 11.5 H (4.8-10.8) X10*3/uL RBC 4.24 (4.20-5.50) X10*6/uL Hgb 13.2 (12.0-16.0) g/dl Hct 37.6 (37.0-47.0) % MCV 88.7 (80.0-98.0) fL MCH 31.1 (27.0-33.0) pg MCHC 35.1 H (31.0-35.0) g/dl RDW 13.6 (11.0-16.0) % Plt Count 245 (160-400) X10*3/uL MPV 10.7 (9.4-12.3) fL Immature Gran % (Auto) 0.8 H (0.0-0.4) % Neut % (Auto) 76.2 H (45-73) % Lymph % (Auto) 18.1 L (20-40) % [place] % (Auto) 4.4 (2-11) % Eos % (Auto) 0.1 (0-4) % Baso % (Auto) 0.4 (0-2) % Lymph # (Auto) 2.1 (1.2-4.9) X10*3/uL [place] # (Auto) 0.5 (0.1-1.2) X10*3/uL Eos # (Auto) 0.0 (0.0-0.4) X10*3/uL Baso # (Auto) 0.1 (0.0-0.2) X10*3/uL Abs Immat Gran (auto) 0.09 H (0.00-0.03) X10*3/uL Absolute Neuts (auto) 8.8 H (2.0-8.3) x10*3/uL Absolute Nucleated RBC 0.000 (0.0-0.012) X10*3/uL Nucleated RBC % (auto) 0.0 (0.0-0.2) /100WBC PT 9.8 L (10.9-12.4) SEC INR 0.8 L (0.9-1.1) Sodium 139 (135-145) mmol/L Potassium 3.8 (3.3-5.1) mmol/L Chloride 105 (96-108) mmol/L Carbon Dioxide 22 (22-29) mmol/L Anion Gap 16 (12-20) BUN 20 H (9-16) mg/dL Creatinine 0.84 (0.5-1.4) mg/dL Estim Creat Clear Calc 60.9 Estimated GFR > 60 Random Glucose 126 H (60-115) mg/dL Calcium 9.4 (8.4-10.2) mg/dL Magnesium 2.4 (1.6-2.6) mg/dL Total Bilirubin 0.2 (0.0-1.0) mg/dL Direct Bilirubin < 0.2 (0.0-0.5) mg/dL AST 43 H (5-31) U/L ALT 59 H (0-31) U/L Alkaline Phosphatase 65 (39-117) U/L Troponin I High Sens < 2.7 (<3.5-17.0) ng/L B-Natriuretic Peptide 102 H (<100) pg/mL Total Protein 7.8 (6.5-8.0) g/dL Albumin 4.5 (3.5-5.0) g/dL Influenza Type A (PCR) NEGATIVE (Negative) Influenza Type B (PCR) NEGATIVE (Negative) RSV RNA Qual (PCR) NEGATIVE (Negative) SARS-CoV-2 RNA (RT-PCR) NEGATIVE (Negative) Discharge Plan Discharge Clinical Impression: COPD exacerbation Patient Disposition: Home, Self-Care Instructions: COPD (Chronic Obstructive Pulmonary Disease) (DC) Additional Instructions: DISCHARGE DIAGNOSES: Probable upper respiratory infection and exacerbation of underlying COPD HISTORY OF PRESENTATION: cough for about a week EMERGENCY DEPARTMENT COURSE,TESTS, TREATMENTS: While in the ED today we gave 2 consecutive albuterol nebulize, intravenous steroid and cough medicine. We reviewed the chest x-ray performed 2 days ago which showed no evidence of pneumonia or other acute abnormalities DISCHARGE MEDICATIONS: we will continue your oral prednisone prescription for few more days. Otherwise continue with your home medications FOLLOW-UP: Call your primary or general physician soon as possible to discuss your symptoms, your ED visit and to discuss follow up plans Thursday morning call your primary doctor INSTRUCTIONS & RETURN PRECAUTIONS: If any symptoms change first call your primary physician, if it is after-hours your primary doctors office should have a provider internal controls manager you can speak with. If the symptoms are severe or very concerning to you then call 911 or return to the ED. return back to the ER for severe worsening shortness of breath blood in your phlegm severe chest pain or other acute severe symptoms Bernard Augustine MD Emergency Physician [facility] Prescriptions: New prednisone 50 mg tablet 50 mg PO DAILY 5 Days Qty: 5 0RF (DME) Mark Aerosol Stutsman Enhancer Spacer See Rx Instructions .Route Qty: 1 0RF Rx Instructions: As directed No Action fluticasone propionate [Flonase Allergy Relief] 50 mcg/actuation spray,suspension 1 spray intranasal DAILY Qty: 16 5RF Rx Instructions: administer into each nostril (DME) Nebulizer with supplies See Rx Instructions .Route .MEDSUPPLY Qty: 1 0RF Rx Instructions: Use every 6 hours as need for difficulty breathing or shortness of breath. albuterol sulfate 2.5 mg /3 mL (0.083 %) solution for nebulization 2.5 mg inhalation Q6H PRN (Reason: shortness of breath or wheezing) Qty: 75 0RF multivitamin Tablet 1 tab PO DAILY calcium carbonate-vitamin D3 500 mg(1,250mg) -125 unit Tablet 1 tab PO DAILY prednisone 5 mg tablet 5 mg PO DIRECTED Qty: 78 0RF Rx Instructions: Take 12 tablets by mouth for 1 day, then take 11 tablets by mouth for 1 day, then 10 tablets by mouth for 1 day, continue 1 tablet less per day until done ibuprofen 200 mg capsule 200 mg PO Q6H PRN prednisone 20 mg tablet 40 mg PO DAILY Qty: 10 0RF azithromycin 250 mg tablet See Rx Instructions PO .COMPLEX Qty: 6 0RF Rx Instructions: For 250 mg dose pack: take 500 mg today (day 1), then 250 mg for 4 days (days 2-5) PO Dulera 100-5 mcg/actuation HFA aerosol inhaler 2 puff inhalation Q12H Qty: 13 0RF albuterol sulfate 90 mcg/actuation HFA aerosol inhaler 2 puff inhalation Q4-6H PRN (Reason: Wheezing) Qty: 8.5 2RF Interventions: ED Discharge Assessment Last Done: 09/24/24 18:45 Discharge Date/Time: 09/24/24 18:46 Print Language: Danish
--- NOTE | 2024-09-24 15:01 | ECG_ITS ---
Test Reason : SOB Blood Pressure : / mmHG Vent. Rate : 079 BPM Atrial Rate : 079 BPM P-R Int : 158 ms QRS Dur : 080 ms QT Int : 388 ms P-R-T Axes : 072 070 058 degrees QTc Int : 444 ms Normal sinus rhythm Normal ECG When compared with ECG of 21-AUG-2017 09:38, No significant change was found Referred By: Jennifer Shaffer Electronically Signed By:CORRINE GOETZ
[2024-09-24 15:39] LABS: MANUAL DIFF FLAG NO
[2024-09-24 15:55] VITALS: PULSE 90; RESP 20; O2SAT 91
[2024-09-24] MEDS: Albuterol Sulfate 5 MG, Albuterol Sulfate (0.083%) 2.5 MG 7.5 MG INHALE (16:00)
[2024-09-24 16:04] LABS: B Type Natriuretic Peptide 102 pg/mL (<100)
[2024-09-24 16:06] LABS: Albumin Level 4.5 g/dL (3.5-5.0); Anion Gap 16 (12-20); Aspartate Amino Transferase 43 U/L (5-31); Basophils Absolute Auto 0.1 X10*3/uL (0.0-0.2); Basophils Percent Auto 0.4 % (0-2); Bilirubin Direct < 0.2 mg/dL (0.0-0.5); Bilirubin Total 0.2 mg/dL (0.0-1.0); Blood Urea Nitrogen 20 mg/dL (9-16); Calcium 9.4 mg/dL (8.4-10.2); Carbon Dioxide 22 mmol/L (22-29); Chloride 105 mmol/L (96-108); Creatinine Clr Calc Pharmacy 60.9; Eosinophils Percent Auto 0.1 % (0-4); Estimated Glomerular Filt Rate > 60; Glucose Random 126 mg/dL (60-115); Hematocrit 37.6 % (37.0-47.0); Hemoglobin 13.2 g/dl (12.0-16.0); Imm Gran Abs Auto 0.09 X10*3/uL (0.00-0.03); Imm Gran Pct Auto 0.8 % (0.0-0.4); Lymphocytes Absolute Auto 2.1 X10*3/uL (1.2-4.9); Lymphocytes Percent Auto 18.1 % (20-40); Magnesium 2.4 mg/dL (1.6-2.6); Mean Corpuscular HGB Conc 35.1 g/dl (31.0-35.0); Mean Corpuscular Hemoglobin 31.1 pg (27.0-33.0); Mean Corpuscular Volume 88.7 fL (80.0-98.0); Mean Platelet Volume 10.7 fL (9.4-12.3); Monocytes Absolute Auto 0.5 X10*3/uL (0.1-1.2); Monocytes Percent Auto 4.4 % (2-11); Neutrophils Absolute Auto 8.8 x10*3/uL (2.0-8.3); Neutrophils Percent Auto 76.2 % (45-73); Platelet Count 245 X10*3/uL (160-400); Potassium 3.8 mmol/L (3.3-5.1); Red Blood Count 4.24 X10*6/uL (4.20-5.50); Red Cell Distribution Width 13.6 % (11.0-16.0); Sodium 139 mmol/L (135-145); Total Protein 7.8 g/dL (6.5-8.0); White Blood Count 11.5 X10*3/uL (4.8-10.8)
[2024-09-24 16:07] LABS: Troponin-I High Sensitivity < 2.7 ng/L (<3.5-17.0)
[2024-09-24 16:08] LABS: INTERNATIONAL NORM RATIO 0.8 (0.9-1.1); Prothrombin Time 9.8 SEC (10.9-12.4)
[2024-09-24 16:19] VITALS: BP 147/67; PULSE 93; RESP 17; TEMP 36.7; O2SAT 92
[2024-09-24 16:22] LABS: Influenza A PCR NEGATIVE (Negative); Influenza B PCR NEGATIVE (Negative); Resp Syncy Virus RNA Qual PCR NEGATIVE (Negative); SARS COV2 PCR INHOUSE NEGATIVE (Negative)
[2024-09-24] MEDS: methylPREDNISolone Sod Succ 125 MG/2 ML VIAL 80 MG IVPUSH (16:57)
[2024-09-24] MEDS: guaiFENesin LA 600 MG TAB.ER.12H 1200 MG PO (16:57)
[2024-09-24 17:11] LABS: Alanine Aminotransferase 59 U/L (0-31); Alkaline Phosphatase 65 U/L (39-117)
[2024-09-24 17:53] VITALS: PULSE 90; RESP 12; O2SAT 92
[2024-09-24] MEDS: Albuterol Sulfate (0.083%) 2.5 MG/3 ML VIAL.NEB INHALE (17:53)
[2024-09-24 18:37] VITALS: BP 129/57; PULSE 57; RESP 20; TEMP 36.6; O2SAT 92
[2024-09-24 18:45] VITALS: BP 129/57; PULSE 90; RESP 14; TEMP 36.2; O2SAT 95
== END 2024-09-24 18:46 | disposition home or self-care (01) ==
PROVIDERS: Physician Assistant; Emergency Provider Emergency Medicine; PCP Internal Medicine
DX: J44.1 Chronic obstructive pulmonary disease with (acute) exacerbation (principal); R06.02 Shortness of breath; R05.9 Cough, unspecified; Z87.891 Personal history of nicotine dependence; Z03.818 Encounter for observation for suspected exposure to other biological agents ruled out
CPT/HCPCS: 0241U; 36415; 80048; 80076; 83735; 83880; 84484; 85025; 85610; 93005; 94640; 96374; 99285; J2919

== ENCOUNTER → 2024-09-24 15:01 | Outpatient (BNV) | payer MEDICARE, MEDICAID, SELFPAY | PROVIDERS: Emergency Provider Emergency Medicine; PCP Internal Medicine; Visit Provider Internal Medicine | DX: R06.02 Shortness of breath (principal) | CPT/HCPCS: 93010 ==

== ENCOUNTER 2024-09-26 11:58 | Emergency (ER) | payer MEDICARE, MEDICAID, SELFPAY ==
[2024-09-26] VITALS (10 sets, daily range): BP systolic 155–166; BP diastolic 63–82; PULSE 71–83; RESP 14–22; TEMP 36.6–36.9; O2SAT 88–96; BMI 26.4
--- NOTE | ~2024-09-26 | CT_ITS ---
EXAMINATION: CT ANGIOGRAM OF THE CHEST WITH AND WITHOUT CONTRAST (CT PULMONARY ANGIOGRAM FOR PE) CLINICAL INFORMATION: Dyspnea, elevated D-dimer COMPARISON: No pertinent prior studies are available for comparison. TECHNIQUE: Prior to contrast administration, noncontrast localization images were obtained. Subsequently, multidetector volumetric imaging was performed from the thoracic inlet to below the diaphragms following the administration of 65 mL Omnipaque 350 intravenous contrast. No contrast reaction reported. Sagittal, coronal, and MIP oblique sagittal reformatted images were obtained on the CT workstation, uploaded to PACS, and reviewed. Total exam dose-length product 262 mGy-cm FINDINGS: QUALITY OF STUDY/CONTRAST BOLUS: Satisfactory. PULMONARY ARTERIES: No central or segmental pulmonary emboli. THORACIC AORTA: No aneurysm or dissection. LUNG: Centrilobular and paraseptal emphysema. Mucous plugging in the bilateral lower lobes. No focal consolidation PLEURA: No pleural effusion or pneumothorax. MEDIASTINUM: Normal heart size. No pericardial effusion. No hilar or mediastinal lymphadenopathy. No evidence of septal bowing or right heart strain. CHEST WALL/AXILLA: No axillary or internal mammary lymphadenopathy. OSSEOUS STRUCTURES: No acute or suspicious osseous abnormality. UPPER ABDOMEN: Partially visualized subcentimeter hypodense lesions in the right lobe. No reflux of contrast into the hepatic veins to suggest elevated right heart pressures. CT/CT angio chest PE protocol IMPRESSION: 1. No central or segmental pulmonary emboli. 2. Mucous plugging in the bilateral lower lobes. VTE: negative. Electronically signed by: Gato Rosenberg MD 09/26/2024 07:55 PM EST
--- NOTE | ~2024-09-26 | XR_ITS ---
EXAMINATION: XR CHEST CLINICAL INFORMATION: shortness of breath COMPARISON: 09/22/2024 TECHNIQUE: 2 views of the chest were obtained. FINDINGS: No focal consolidation, pulmonary edema, or pleural effusion. Stable cardiomediastinal silhouette. XR/XR chest 2V IMPRESSION: No acute cardiopulmonary findings. Electronically signed by: Carlos Carrasco MD 09/26/2024 07:22 PM [facility]
--- OUTSIDE RECORDS SUMMARY | 2024-09-26 12:00 | XMS_ITS | Patient Health Record ---
Author Organization [facility] Address [address] [place] [address] Care Team Providers Care Plan Coordinator Name Role Phone Puma MARIN, Anali Primary [...] Problem Colon cancer screening (Z12.11) Active confirmed [id number] Problem Encounter for other preprocedural examination (Z01.818) Active confirmed [id number] PLAN OF TREATMENT Future Test Test Name Order Date COLONOSCOPY 08/22/2015 COLONOSCOPY 03/13/2021 Insurance Providers Payer Name Payer Address Payer Phone Subscriber Number Group Number Insured Name Patient Relationship to Insured Coverage Start Date Coverage End Date MEDICARE OF [place] [address] [place] [id number] ABIODUN ESCOBAR Self - patient is the insured MEDEX ATTN CLAIMS [address] [place] [address] [id number] ABIODUN ESCOBAR Self - patient is the insured MEDICAL (GENERAL) HISTORY Medical History History ICD Code colonoscopy 12/07/15, five-year followup hyperplastic colon polyps hemorrhoids anxiety COPD hypertension Surgical History Surgery Date(Month/Year) appendectomy tonsillectomy lung surgery due to collapsed lung adenoidectomy
--- NOTE | 2024-09-26 12:09 | ECG_ITS ---
Test Reason : SOB Blood Pressure : / mmHG Vent. Rate : 073 BPM Atrial Rate : 073 BPM P-R Int : 168 ms QRS Dur : 082 ms QT Int : 382 ms P-R-T Axes : 077 070 050 degrees QTc Int : 420 ms Normal sinus rhythm Normal ECG When compared with ECG of 24-SEP-2024 15:26, No significant change was found Referred By: Moiz Fair Electronically Signed By:Guillermo Villela
--- NOTE | 2024-09-26 12:09 | ED.GENADULT ---
HPI - General Adult General Chief complaint: Dyspnea Stated complaint: Diff breathing Time Seen by Provider: 09/26/24 16:14 History of Present Illness ED Provider: Justin DASH narrative: The patient is a 73-year-old woman with a history of COPD. She says that she has been having problems with breathing for about a week and a half. Had a cough. Last week she went to an urgent care center and was prescribed azithromycin and prednisone. She came to the emergency room 2 days ago and was prescribed additional prednisone. She was advised to follow up with her PCP. She says that she continues to have significant shortness of breath on exertion and return to the emergency room because she felt that she was not getting any better. She has not had a fever. She is not on oxygen at home. The patient says that she has been coughing primarily at night. No pain or swelling in her legs. Related Data Home Medications ?Medication ?Instructions ?Recorded ?Confirmed calcium 500 mg (as 1 tab PO DAILY 04/05/21 09/12/24 carbonate)-vitamin D3 3.125 mcg (125 unit) tablet multivitamin 1 tab PO DAILY 04/05/21 09/12/24 ibuprofen 200 mg capsule 200 mg PO Q6H PRN 03/09/24 09/12/24 Previous Rx's ?Medication ?Instructions ?Recorded fluticasone propionate 50 1 spray intranasal DAILY #16 grams 01/09/22 mcg/actuation nasal spray,suspension (Flonase Allergy Relief) Dulera 100 mcg-5 mcg/actuation HFA 2 puff inhalation Q12H #13 grams 09/12/24 aerosol inhaler (mometasone-formoterol) albuterol sulfate 90 mcg/actuation 2 puff inhalation Q4-6H PRN 09/12/24 aerosol inhaler Wheezing #8.5 grams azithromycin 250 mg tablet See Rx Instructions PO .COMPLEX #6 09/20/24 tabs prednisone 20 mg tablet 40 mg (2 x 20 mg) PO DAILY #10 tabs 09/20/24 inhalational spacing device (Mark #1 ea 09/24/24 Aerosol [place] Enhancer spacer) prednisone 50 mg tablet 50 mg PO DAILY 5 days #5 tabs 09/24/24 Nebulizer with supplies #1 ea 09/26/24 albuterol sulfate 2.5 mg/3 mL 2.5 mg (3 mL) inhalation Q6H PRN 09/26/24 (0.083 %) solution for nebulization shortness of breath or wheezing #75 mL prednisone 5 mg tablet 5 mg PO DIRECTED #78 tabs 09/26/24 Allergies Allergy/AdvReac Type Severity Reaction Status Date / Time barium sulfate Allergy Unknown couldn't Verified 09/26/24 12:05 put head down or would pass out loratadine [Claritin] Allergy Unknown heebie Verified 09/26/24 12:05 jeebies like going to jump out of skin varenicline [From Chantix] Allergy Unknown couldnt Verified 09/26/24 12:05 put head down or would pass out azithromycin AdvReac Unknown intestinal Verified 09/26/24 12:05 pain tiotropium AdvReac Unknown coughing Verified 09/26/24 12:05 [Spiriva with HandiHaler] fits Review of Systems Review of Systems: Yes all other systems are reviewed and are negative PMFSH Past Medical History Medical History Impaired fasting glucose Dyslipidemia Allergic rhinitis Normal colonoscopy Osteoarthritis Seasonal allergies COPD (chronic obstructive pulmonary disease) Surgical History History of lung surgery History of appendectomy Status post dilation and curettage History of colonoscopy History of adenoidectomy History of tonsillectomy Family History Family History Father Colon cancer Substance use disorder Mother CVD (cardiovascular disease) Arteriosclerotic heart disease (ASHD) Mental health disorder Brother Colon polyps Substance use disorder Maternal Aunt Stomach cancer Brother Hemochromatosis Daughter No problems noted. Daughter No problems noted. Sister No problems noted. Sister No problems noted. Sister No problems noted. Sister Substance use disorder Sister Substance use disorder Sister No problems noted. Sister No problems noted. Sister No problems noted. Social History Social History Housing: Apartment Are you a primary care transition mgr to a significant other at home: No Do you presently have visiting nurse or other home services: No Alcohol intake: current Alcohol intake frequency: a few times a month Alcohol type: beer Patient Tobacco Use Status: Former Tobacco user Tobacco use type: Smokeless Tobacco Smoked in Last 30 Days: Yes e-Cigarette/Vaping Use: Currently Using Second Hand Smoke Exposure: Yes Use of substances other than those prescribed or required for medical reasons: No Advance Directives: No Advance Directives Information Provided: Yes Do you have a plan to hurt others: No Plan service: No Current occupational status: employed Cognitive needs: No Hearing needs: No Vision needs: Yes Physical Exam ED Vital Signs: Vital Signs - 24 hr 09/26/24 11:59 09/26/24 12:30 09/26/24 15:59 Temperature 98.2 F 97.8 F Pulse Rate 80 80 77 Respiratory Rate 22 H 22 H 18 Blood Pressure 163/78 H 166/63 H Pulse Oximetry 94 93 Oxygen Delivery Method Room Air Room Air Oxygen Flow Rate 09/26/24 16:04 09/26/24 16:07 09/26/24 16:33 Temperature Pulse Rate 73 Respiratory Rate 14 Blood Pressure Pulse Oximetry 88 L 94 Oxygen Delivery Method Room Air Nasal Cannula Oxygen Flow Rate 2 09/26/24 18:00 09/26/24 20:00 09/26/24 20:19 Temperature 98.3 F 98.4 F Pulse Rate 77 83 83 Respiratory Rate 16 16 16 Blood Pressure 161/65 H 155/64 H Pulse Oximetry 92 93 Oxygen Delivery Method Room Air Room Air Oxygen Flow Rate 09/26/24 21:18 Temperature 97.9 F Pulse Rate 71 Respiratory Rate 20 Blood Pressure 166/82 H Pulse Oximetry 93 Oxygen Delivery Method Room Air Oxygen Flow Rate BMI result Body Mass Index 26.4 Const Other: The patient is a slim 73-year-old woman who was awake and alert. She had apparently had an oxygen saturation of 88% and has been placed on nasal oxygen. She looked entirely comfortable on 2 L nasal cannula and was satting at 95% on room air. She was not showing any signs of respiratory distress or difficulty or any other obvious signs of illness. HENMT Other: Face is symmetrical, mucous membranes moist Eyes General: appearance normal, both eyes and all related structures Neck Neck: Yes no JVD Resp Other: No increased work of breathing. Slight inspiratory and expiratory wheezes bilaterally Cardio Rate: regular rate Rhythm: regular rhythm Heart sounds: S1 normal heart sound present and S2 normal heart sound present GI Other: Abdomen is soft and nontender Skin Other: Skin is dry and unremarkable Neuro Other: The patient is awake and alert with a normal mental status. Cranial nerves are grossly intact. She moves her extremities normally and appropriately. Extrem Other: No peripheral edema, no calf swelling or tenderness, no asymmetry. Course Course Course Narrative: RME: 73 yold female for coughing and SOB. Was seen in the ED for COPD exacerbation. seen here recently and tested for covid/RSV/influenza. positive for wheezing in lungs. LABS, EKG, and ED bronchodilatro ordered Medications Administered Discontinued Medications Generic Name Dose Route Start Last Admin Trade Name Freq PRN Reason Stop Dose Admin Albuterol Sulfate 2.5 mg/ 5 mg 09/26/24 12:30 09/26/24 12:31 Albuterol Sulfate 2.5 mg INHALE 09/26/24 12:31 5 mg ONCE ONE Administration Albuterol Sulfate 5 mg 09/26/24 16:22 09/26/24 16:46 Albuterol Sulfate (0.083%) 2.5 Mg/3 Ml Vial.Neb INHALE 09/26/24 16:23 5 mg ONCE ONE Administration Albuterol/Ipratropium 3 ml 09/26/24 20:15 09/26/24 20:18 Albuterol/Iprat 2.5/0.5mg 3 Ml Ampul.Neb INHALE 09/26/24 20:16 3 ml ONCE ONE Administration Iohexol 100 ml 09/26/24 18:06 09/26/24 18:06 Iohexol 350 Mg/Ml 100 Ml Infus..Btl IV 09/26/24 18:07 65 ml ONCE ONE Administration Methylprednisolone Sodium Succinate 80 mg 09/26/24 18:50 09/26/24 19:14 Methylprednisolone Sod Succ 125 Mg/2 Ml Vial IVPUSH 09/26/24 18:51 80 mg ONCE ONE Administration Medical Decision Making Medical Decision Making MDM Narrative: The patient is a 73-year-old woman with a history of COPD. She has a history of smoking. She does not seem to have had significant episodes related to her COPD I believe she has never been hospitalized for COPD. She has been having worsening shortness of breath and cough for the last week and a half. She was initially placed on a course of prednisone and azithromycin. She did not feel significantly improved and she was here 2 days ago and prescribed additional prednisone. Today she still feels short of breath and her oxygen saturations were about 88% on room air. She did not seem in distress or seem acutely ill. Her lung exam revealed some wheezes. given her lack of response to the treatment she has had to this point I ordered a D-dimer which was abnormal and this prompted a CT pulmonary angiogram that showed no pulmonary emboli. There were signs of mucous plugging. In the emergency room today the patient received IV steroids as well as bronchodilator treatments. She has tiotropium listed as an allergy but she seemed to tolerate ipratroprium (Atrovent) as part of a DuoNeb treatment. the patient's oxygen saturations seemed to have her around 90% on room air after treatment. The patient was offered the option of hospitalization for additional treatment given how long she has been symptomatic and her lack of improvement. She has an elevated white count but I think this is related to her steroid usage and not a sign of infection. Her CRP is unremarkable. She does not have fever or other significant symptoms of infection. The patient did not wish to be hospitalized. I will prescribe a 12 day tapering course of prednisone. She should continue to use her bronchodilators. She should follow up with her PCP. She should return if worse. Lab Data 09/26/24 12:27 09/26/24 12:27 Labs: Lab Results 09/26/24 09/26/24 Range/Units 12: 16:08 WBC 16.5 H (4.8-10.8) X10*3/uL RBC 4.21 (4.20-5.50) X10*6/uL Hgb 13.1 (12.0-16.0) g/dl Hct 37.8 (37.0-47.0) % MCV 89.8 (80.0-98.0) fL MCH 31.1 (27.0-33.0) pg MCHC 34.7 (31.0-35.0) g/dl RDW 13.7 (11.0-16.0) % Plt Count 303 (160-400) X10*3/uL MPV 9.1 L (9.4-12.3) fL Immature Gran % (Auto) 0.9 H (0.0-0.4) % Neut % (Auto) 59.2 (45-73) % Lymph % (Auto) 31.8 (20-40) % [place] % (Auto) 7.7 (2-11) % Eos % (Auto) 0.2 (0-4) % Baso % (Auto) 0.2 (0-2) % Lymph # (Auto) 5.2 H (1.2-4.9) X10*3/uL [place] # (Auto) 1.3 H (0.1-1.2) X10*3/uL Eos # (Auto) 0.0 (0.0-0.4) X10*3/uL Baso # (Auto) 0.0 (0.0-0.2) X10*3/uL Abs Immat Gran (auto) 0.15 H (0.00-0.03) X10*3/uL Absolute Neuts (auto) 9.7 H (2.0-8.3) x10*3/uL Absolute Nucleated RBC 0.000 (0.0-0.012) X10*3/uL Nucleated RBC % (auto) 0.0 (0.0-0.2) /100WBC Smear Tech's Comments VERIFIED PT 10.1 L (10.9-12.4) SEC INR 0.9 (0.9-1.1) APTT 25.8 L (26.0-36.8) SEC D-Dimer High Sensitivty 763 NG/ML Sodium 137 (135-145) mmol/L Potassium 3.3 (3.3-5.1) mmol/L Chloride 104 (96-108) mmol/L Carbon Dioxide 23 (22-29) mmol/L Anion Gap 13 (12-20) BUN 18 H (9-16) mg/dL Creatinine 0.95 (0.5-1.4) mg/dL Estim Creat Clear Calc 54.0 Estimated GFR 58 Random Glucose 95 (60-115) mg/dL Calcium 9.2 (8.4-10.2) mg/dL Total Bilirubin 0.3 (0.0-1.0) mg/dL AST 40 H (5-31) U/L ALT 58 H (0-31) U/L Alkaline Phosphatase 61 (39-117) U/L Troponin I High Sens 2.9 (<3.5-17.0) ng/L C-Reactive Protein 0.19 (< or = 0.50) mg/dL B-Natriuretic Peptide 125 H (<100) pg/mL Total Protein 7.6 (6.5-8.0) g/dL Albumin 4.3 (3.5-5.0) g/dL Influenza Type A (PCR) NEGATIVE (Negative) Influenza Type B (PCR) NEGATIVE (Negative) RSV RNA Qual (PCR) NEGATIVE (Negative) SARS-CoV-2 RNA (RT-PCR) NEGATIVE (Negative) Independent Interpretation I performed an independent interpretation of an: EKG Interpretation: EKG at 12:21 shows normal sinus rhythm at 73 beats per minute. It is a normal EKG. No change from previous. Discharge Plan Discharge Clinical Impression: Acute exacerbation of chronic obstructive pulmonary disease Patient Disposition: Home, Self-Care Additional Instructions: This still seems to be a very persistent exacerbation of your COPD. Continue to use your albuterol every 4 hours as needed. I have sent a prescription for additional prednisone to your pharmacy. This is a tapering course of prednisone. Please take 60 mg tomorrow morning (12 tablets). After that you will take 11 tablets on Thursday, 10 tablets on , 9 tablets on Thursday, and continue to take 1 tablet less per day until done. Please contact your regular doctor's office tomorrow morning to make a prompt follow up appointment to discuss how you are doing. Return to the emergency room if worse. Prescriptions: New prednisone 5 mg tablet 5 mg PO DIRECTED Qty: 78 0RF Rx Instructions: Take 12 tablets by mouth for 1 day, then take 11 tablets by mouth for 1 day, then 10 tablets by mouth for 1 day, continue 1 tablet less per day until done No Action fluticasone propionate [Flonase Allergy Relief] 50 mcg/actuation spray,suspension 1 spray intranasal DAILY Qty: 16 5RF Rx Instructions: administer into each nostril (DME) Nebulizer with supplies See Rx Instructions .Route .MEDSUPPLY Qty: 1 0RF Rx Instructions: Use every 6 hours as need for difficulty breathing or shortness of breath. albuterol sulfate 2.5 mg /3 mL (0.083 %) solution for nebulization 2.5 mg inhalation Q6H PRN (Reason: shortness of breath or wheezing) Qty: 75 0RF multivitamin Tablet 1 tab PO DAILY calcium carbonate-vitamin D3 500 mg(1,250mg) -125 unit Tablet 1 tab PO DAILY prednisone 50 mg tablet 50 mg PO DAILY 5 Days Qty: 5 0RF (DME) Mark Aerosol [place] Enhancer Spacer See Rx Instructions .Route Qty: 1 0RF Rx Instructions: As directed ibuprofen 200 mg capsule 200 mg PO Q6H PRN prednisone 20 mg tablet 40 mg PO DAILY Qty: 10 0RF azithromycin 250 mg tablet See Rx Instructions PO .COMPLEX Qty: 6 0RF Rx Instructions: For 250 mg dose pack: take 500 mg today (day 1), then 250 mg for 4 days (days 2-5) PO Dulera 100-5 mcg/actuation HFA aerosol inhaler 2 puff inhalation Q12H Qty: 13 0RF albuterol sulfate 90 mcg/actuation HFA aerosol inhaler 2 puff inhalation Q4-6H PRN (Reason: Wheezing) Qty: 8.5 2RF Referrals: Anali Bartholomew MD [Primary Care Provider] - Interventions: ED Discharge Assessment Last Done: 09/26/24 21:18 Discharge Date/Time: 09/26/24 21:20 Print Language: Bermudian
[2024-09-26] MEDS: Albuterol Sulfate 2.5 MG, Albuterol Sulfate (0.083%) 2.5 MG 5 MG INHALE (12:31)
[2024-09-26 12:39] LABS: Basophils Percent Auto 0.2 % (0-2); Eosinophils Percent Auto 0.2 % (0-4); Hematocrit 37.8 % (37.0-47.0); Hemoglobin 13.1 g/dl (12.0-16.0); Imm Gran Abs Auto 0.15 X10*3/uL (0.00-0.03); Imm Gran Pct Auto 0.9 % (0.0-0.4); Lymphocytes Absolute Auto 5.2 X10*3/uL (1.2-4.9); Lymphocytes Percent Auto 31.8 % (20-40); MANUAL DIFF FLAG SCAN; Mean Corpuscular HGB Conc 34.7 g/dl (31.0-35.0); Mean Corpuscular Hemoglobin 31.1 pg (27.0-33.0); Mean Corpuscular Volume 89.8 fL (80.0-98.0); Mean Platelet Volume 9.1 fL (9.4-12.3); Monocytes Absolute Auto 1.3 X10*3/uL (0.1-1.2); Monocytes Percent Auto 7.7 % (2-11); Neutrophils Absolute Auto 9.7 x10*3/uL (2.0-8.3); Neutrophils Percent Auto 59.2 % (45-73); Platelet Count 303 X10*3/uL (160-400); Red Blood Count 4.21 X10*6/uL (4.20-5.50); Red Cell Distribution Width 13.7 % (11.0-16.0); SCAN SMEAR FLAG 1; White Blood Count 16.5 X10*3/uL (4.8-10.8)
[2024-09-26 12:49] LABS: INTERNATIONAL NORM RATIO 0.9 (0.9-1.1); Prothrombin Time 10.1 SEC (10.9-12.4)
[2024-09-26 12:52] LABS: Partial Thromboplastin Time 25.8 SEC (26.0-36.8)
[2024-09-26 12:54] LABS: Alanine Aminotransferase 58 U/L (0-31); Albumin Level 4.3 g/dL (3.5-5.0); Alkaline Phosphatase 61 U/L (39-117); Anion Gap 13 (12-20); Aspartate Amino Transferase 40 U/L (5-31); Bilirubin Total 0.3 mg/dL (0.0-1.0); Blood Urea Nitrogen 18 mg/dL (9-16); Calcium 9.2 mg/dL (8.4-10.2); Carbon Dioxide 23 mmol/L (22-29); Chloride 104 mmol/L (96-108); Estimated Glomerular Filt Rate 58; Glucose Random 95 mg/dL (60-115); Potassium 3.3 mmol/L (3.3-5.1); Sodium 137 mmol/L (135-145); Total Protein 7.6 g/dL (6.5-8.0)
[2024-09-26 12:59] LABS: B Type Natriuretic Peptide 125 pg/mL (<100)
[2024-09-26 13:03] LABS: SLIDE REVIEW VERIFIED
[2024-09-26 13:36] LABS: Troponin-I High Sensitivity 2.9 ng/L (<3.5-17.0)
--- NOTE | 2024-09-26 16:31 | PC.NURSE ---
rt called for additional treatment
[2024-09-26] MEDS: Albuterol Sulfate (0.083%) 2.5 MG/3 ML VIAL.NEB 5 MG INHALE (16:46)
[2024-09-26 16:49] LABS: C Reactive Protein 0.19 mg/dL (< or = 0.50)
[2024-09-26 16:51] LABS: Influenza A PCR NEGATIVE (Negative); Influenza B PCR NEGATIVE (Negative); Resp Syncy Virus RNA Qual PCR NEGATIVE (Negative); SARS COV2 PCR INHOUSE NEGATIVE (Negative)
[2024-09-26 17:01] LABS: D Dimer High Sensitivity 763 NG/ML
[2024-09-26] MEDS: iohexoL 350 MG/ML 100 ML INFUS..BTL IV (18:06)
[2024-09-26] MEDS: methylPREDNISolone Sod Succ 125 MG/2 ML VIAL 80 MG IVPUSH (19:14)
[2024-09-26] MEDS: Albuterol/Iprat 2.5/0.5MG 3 ML AMPUL.NEB INHALE (20:18)
== END 2024-09-26 21:20 | disposition home or self-care (01) ==
PROVIDERS: Physician Assistant; Emergency Provider Emergency Medicine; PCP Internal Medicine
DX: J44.1 Chronic obstructive pulmonary disease with (acute) exacerbation (principal); R05.9 Cough, unspecified; R06.02 Shortness of breath; U07.0 Vaping-related disorder; Z03.818 Encounter for observation for suspected exposure to other biological agents ruled out; Z79.899 Other long term (current) drug therapy; Z87.891 Personal history of nicotine dependence
CPT/HCPCS: 0241U; 36415; 71046; 71275; 80053; 83880; 84484; 85025; 85379; 85610; 85730; 86140; 93005; 94640; 96374; 99285; J2919; Q9967

== ENCOUNTER → 2024-09-26 12:09 | Outpatient (BNV) | payer MEDICARE, MEDICAID, SELFPAY | PROVIDERS: Emergency Provider Emergency Medicine; PCP Internal Medicine; Visit Provider Internal Medicine Cardiovascular Disease | DX: R06.02 Shortness of breath (principal) | CPT/HCPCS: 93010 ==

== ENCOUNTER 2024-10-03 08:42 | Outpatient (AMB) | payer MEDICARE, MEDICAID, SELFPAY ==
--- OUTSIDE RECORDS SUMMARY | 2024-10-03 08:45 | XMS_ITS | Patient Health Record ---
Author Organization [facility] Address [address] [place] [address] Care Team Providers Care Felt Hat Inspector And Packer Name Role Phone Puma MARIN, Anali Primary Care Provider Steffi James Jr, Brent Unavailable ALLERGIES Allergen (clinical drug ingredient) Drug/Non [...] Problem Colon cancer screening (Z12.11) Active confirmed 676502761 Problem Encounter for other preprocedural examination (Z01.818) Active confirmed 47010309 PLAN OF TREATMENT Future Test Test Name Order Date COLONOSCOPY 08/22/2015 COLONOSCOPY 03/13/2021 Insurance Providers Payer Name Payer Address Payer Phone Subscriber Number Group Number Insured Name Patient Relationship to Insured Coverage Start Date Coverage End Date MEDICARE OF [place] [address] [place] [id number] [phone] [id number] ABIODUN ESCOBAR Self - patient is the insured MEDEX ATTN CLAIMS [address] [place] [address] [id number] ABIODUN ESCOBAR Self - patient is the insured MEDICAL (GENERAL) HISTORY Medical History History ICD Code colonoscopy 12/07/15, five-year followup hyperplastic colon polyps hemorrhoids anxiety COPD hypertension Surgical History Surgery Date(Month/Year) appendectomy tonsillectomy lung surgery due to collapsed lung adenoidectomy
[2024-10-03 08:49] VITALS: BP 142/72; PULSE 84; O2SAT 94; BMI 26.8
--- NOTE | 2024-10-03 08:49 | MHC.PC.OV ---
Vital Signs 10/03/24 08:49 Height 5 ft 5 in Weight 161 lb BMI 26.8 BP 142/72 H Blood Pressure Location Lt brachial Position Sitting Pulse 84 Pulse Source Pulse Oximeter Pulse Oximetry (%) 94 Oxygen Delivery Method Room Air Intake [place] [facility] [place] Int[place] Note: Pt is here today for her ER f/[place] [facility] [place] Allergies barium sulfate Allergy (Unknown, Verified 10/03/24 09:47) couldn't put head down or would pass out loratadine [Claritin] Allergy (Unknown, Verified 10/03/24 09:47) heebie jeebies like going to jump out of skin varenicline [From Chantix] Allergy (Unknown, Verified 10/03/24 09:47) couldnt put head down or would pass out azithromycin Adverse Reaction (Unknown, Verified 10/03/24 09:47) intestinal pain tiotropium [Spiriva with HandiHaler] Adverse Reaction (Unknown, Verified 10/03/24 09:47) coughing fits Medication List - Last Reconciled 10/03/24 by Anali Bartholomew MD albuterol sulfate 2.5 mg (3 mL) inhalation Q6H PRN albuterol sulfate 90 mcg/actuation 2 puffs inhalation Q4-6H PRN beclomethasone dipropionate 80 mcg/actuation (Qvar RediHaler) 1 inh inhalation BID calcium carbonate-vitamin D3 500 mg-3.125 mcg (125 unit) 1 tab PO DAILY fluticasone propionate 50 mcg/actuation (Flonase Allergy Relief) 1 spray intranasal DAILY ibuprofen 200 mg PO Q6H PRN inhalational spacing device (Mark Aerosol Comal Enhancer spacer) As directed multivitamin 1 tab PO DAILY [Nebulizer with supplies Use every 6 hours as need for difficulty breathing or shortness of breath. NS] prednisone 5 mg PO DIRECTED Tobacco use date assessed: 10/03/24 Dental Screening Dental Screen Date: 09/12/24 HPI [facility] [place] HPI Details 73-year-old lady here today for follow-up after recent ER visit where she was seen for acute exacerbation of COPD. Patient was placed on tapering dose of prednisone and given IV nebulizer treatments with albuterol which afforded some relief. Still having intermittent episodes chest congestion and wheezing, difficulty expectorating, usually brought about by exertion, or exposure to fumes and smells. She was prescribed Dulera, which she states gave her severe palpitation. [facility] Medical History Impaired fasting glucose Dyslipidemia Allergic rhinitis Normal colonoscopy Osteoarthritis Seasonal allergies COPD (chronic obstructive pulmonary disease) Surgical History History of lung surgery History of appendectomy Status post dilation and curettage History of colonoscopy History of adenoidectomy History of tonsillectomy Family History Father Colon cancer Substance use disorder Mother CVD (cardiovascular disease) Arteriosclerotic heart disease (ASHD) Mental health disorder Brother Colon polyps Substance use disorder Maternal Aunt Stomach cancer Brother Hemochromatosis Daughter No problems noted. Daughter No problems noted. Sister No problems noted. Sister No problems noted. Sister No problems noted. Sister Substance use disorder Sister Substance use disorder Sister No problems noted. Sister No problems noted. Sister No problems noted. Social History Housing: Apartment Are you a primary progressive care nurse to a significant other at home: No Do you presently have visiting nurse or other home services: No Alcohol intake: current Alcohol intake frequency: a few times a month Alcohol type: beer Patient Tobacco Use Status: Former Tobacco user Tobacco use type: Smokeless Tobacco e-Cigarette/Vaping Use: Currently Using Second Hand Smoke Exposure: Yes service: No Current occupational status: employed Cognitive needs: No Hearing needs: No Vision needs: Yes Questionnaire Thrive Questionnaire Date Thrive assessed: 09/12/24 I am a: Patient What is your living situation today?: I have a steady place to live Within the past 12 months, did the food you bought not last and you didn't have the money to get more?: Never true Within the past 12 months, did you worry whether your food would run out before you got money to buy more?: Never true Do you have trouble paying for medicines?: No Do you have trouble getting transportation to medical appointments?: No Do you have trouble paying your heating and electricity bill?: No Do you have trouble taking care of your child, family member or friend?: No Do you have trouble with day-to-day activities such as bathing, preparing meals, shopping, managing finances, etc.?: No Are you currently unemployed and looking for a job?: No Are you interested in more education?: No Please select the resources that you would like help with: None Currently or been in a relationship where the following occur: No concerns reported THRIVE Score: 0 SARAH-7 AMB Questionnaire SARAH-7 Date SARAH - 7 assessed: 09/12/24 Source: Developed by Drs. Peterson Barakat, Melissa Ramos, Leodan Olivas and colleagues, with an educational kika from [employer]. Review of Systems Const Reports no additional complaints and Denies fever(s) ENT Reports no additional complaints Card Denies chest pain, Denies irregular heart rhythm and Denies lightheadedness Resp Reports as per HPI GI Reports no additional complaints Musc Reports no additional complaints Neuro Reports no additional complaints Aller/Immun Reports seasonal rhinorrhea Physical exam (Primary Care) Vital Signs: Last Vital Signs Pulse 84 10/03/24 08:49 BP 142/72 H 10/03/24 08:49 Pulse Ox 94 10/03/24 08:49 Oxygen Delivery Method Room Air 10/03/24 08:49 BMI result Body Mass Index 26.8 Tobacco/Smoking Status: Tobacco use Status Tobacco use date assessed 10/03/24 10/03/24 08:53 Patient Tobacco Use Status Former Tobacco user 10/03/24 08:53 Tobacco use type Smokeless Tobacco 10/03/24 08:53 e-Cigarette/Vaping Use Currently Using 10/03/24 08:53 Thrive Assessment: Date of Thrive Assessment Date Thrive assessed 09/12/24 10/03/24 08:53 Currently or been in a relationship where the following occur: No concerns reported Const Orientation/consciousness: patient oriented x3 HENMT Head: Yes normocephalic General nose exam: Normal external nose present and No nasal discharge present Face and sinus: Yes face symmetric Mouth: oropharynx normal and moist mucous membranes Neck Other: Supple with no lymphadenopatyh Resp Other: Scattered inspiratory wheezing bilaterally Effort & Inspection: normal respiratory effort and able to speak in complete sentences Cardio Other: S1-S2 present regular rate and rhythm GI Palpation (GI): Soft to palpation, nontender, no guarding and no masses Auscultation: normal bowel sounds Skin General skin exam: no rashes or lesions noted Neuro General: patient oriented x3, gait normal, tone normal, moves all extremities and no focal motor deficits Extrem General: Yes full ROM, Yes no joint enlargement, Yes no clubbing, cyanosis or edema, Yes no calf tenderness and Yes normal gait Office Procedures Nebulizer Treatment Nebulizer Treatment 65685-Cghsgplag/MDI RX initial, or Nebulizer Subsequent Treatment Office Meds ipratropium 0.5 mg-albuterol 3 mg (2.5 mg base)/3 mL nebulization soln Performing Provider: Anali Bartholomew MD [place] [facility] [place] [facility] Administered by: Anali Bartholomew MD on 10/03/24 09:33 Dose Route Admin Location Dispensed Lot Number Expiration Date [facility] Air [employer] Chemist 3 mL inhalation HMG 3 mL [id number] 12/02/25 62208-955-79 [employer] Coding Level of Care Code Est Pt Level 4 (84777) Diagnoses COPD exacerbation J44.1 CPT Codes Nebulizer Treatment - Nebulizer Treatment, initial or subsequent: [id number]-Gsgytszlb/MDI RX initial, or Nebulizer Subsequent Treatment ([id number]) Assessment & Plan Assessment & Plan (1) COPD exacerbation: Code(s): J44.1 - Chronic obstructive pulmonary disease with (acute) exacerbation Category: Medical Plan: Finish prednisone prescribed by ER physician. Prescription already sent for nebulizer, already filled her prescription for albuterol nebulizer, to use 1 nebulizer every 6 hours as needed for episodes of bronchospasm and wheezing. She was given nebulized treatment with albuterol on this visit, with improvement in breathing noted. Will discontinue Dulera and switched to QVAR RediHaler 1 inhalation every 12 hours. Advised to rinse mouth after each use. Patient instructed on proper use of RediHaler. She already received her updated COVID booster, yearly flu vaccine, pneumococcal vaccine and RSV vaccination. Instructed to see us back if after 3-4 days no improvement of symptoms noted Orders: Orders AMB Nebulizer Treatment 10/03/24 J44.1 - Chronic obstructive pulmonary disease with (acute) exacerbation Medications: New beclomethasone dipropionate 80 mcg/actuation (Qvar RediHaler) 1 inh inhalation BID 10.6 grams 3RF J44.1 - Chronic obstructive pulmonary disease with (acute) exacerbation Discontinued Dulera 100-5 mcg/actuation (mometasone-formoterol) Discontinued Reason: Patient Refused 2 puffs inhalation Q12H 13 grams 0RF NS J44.1 - Chronic obstructive pulmonary disease with (acute) exacerbation
== END 2024-10-03 10:37 | disposition home or self-care (01) ==
PROVIDERS: PCP Internal Medicine; Visit Provider Internal Medicine
DX: J44.1 Chronic obstructive pulmonary disease with (acute) exacerbation (principal)

== ENCOUNTER 2024-11-09 14:24 | Outpatient (REF) | payer MEDICARE, MEDICAID, SELFPAY ==
--- NOTE | ~2024-11-09 | XR_ITS ---
CLINICAL HISTORY: M25.562 - Pain in left knee Radiographs of the left knee, 2 views Comparison: None Findings: There is no fracture or dislocation. Mild medial tibiofemoral compartment joint space narrowing. Mild patellofemoral compartment osteophytosis. Bone mineralization is normal. No knee joint effusion. No soft tissue swelling. Impression: No acute findings. Mild degenerative change. This document has been electronically signed by: Andie Reza MD on 11/10/2024 15:16:34
--- NOTE | ~2024-11-09 | US_ITS ---
CLINICAL HISTORY: M25.562 - Pain in left knee Left lower extremity venous duplex ultrasound Comparison: None Findings: The visualized deep veins are fully compressible with normal flow. No popliteal cyst. Impression: No deep vein thrombosis. This document has been electronically signed by: Andie Reza MD on 11/09/2024 16:22:02
== END 2024-11-09 14:25 | disposition home or self-care (01) ==
LOC: HO.US 14:24
PROVIDERS: PCP Internal Medicine; Visit Provider Internal Medicine
DX: M25.562 Pain in left knee (principal); M79.662 Pain in left lower leg; R22.42 Localized swelling, mass and lump, left lower limb; Z91.81 History of falling
CPT/HCPCS: 73560; 93971; 99212

== ENCOUNTER → 2024-11-09 14:57 | Outpatient (BNV) | payer MEDICARE, MEDICAID, SELFPAY | PROVIDERS: PCP Internal Medicine; Visit Provider Radiology Diagnostic Radiology | DX: M25.562 Pain in left knee (principal) | CPT/HCPCS: 73560; 93971 ==

== ENCOUNTER 2024-11-18 08:43 | Outpatient (AMB) | payer MEDICARE, MEDICAID, SELFPAY ==
--- NOTE | 2024-11-18 08:39 | A.OFFPC_ITS ---
Intake Visit Reasons: ffup breathing problems Allergies barium sulfate Allergy (Unknown, Verified 11/18/24 08:55) couldn't put head down or would pass out loratadine [Claritin] Allergy (Unknown, Verified 11/18/24 08:55) heebie jeebies like going to jump out of skin varenicline [From Chantix] Allergy (Unknown, Verified 11/18/24 08:55) couldnt put head down or would pass out azithromycin Adverse Reaction (Unknown, Verified 11/18/24 08:55) intestinal pain tiotropium [Spiriva with HandiHaler] Adverse Reaction (Unknown, Verified 11/18/24 08:55) coughing fits fluticasone furoate [From Arnuity Ellipta] Adverse Reaction (Verified 11/18/24 08:55) dizziness Medication List - Last Reconciled 11/18/24 by Anali Bartholomew MD albuterol sulfate 90 mcg/actuation 2 puffs inhalation Q4-6H PRN calcium carbonate-vitamin D3 500 mg-3.125 mcg (125 unit) 1 tab PO DAILY fluticasone propionate 50 mcg/actuation (Flonase Allergy Relief) 1 spray intranasal DAILY ibuprofen 200 mg PO Q6H PRN inhalational spacing device (Mark Aerosol [place] Enhancer spacer) As directed ipratropium-albuterol 0.5 mg-3 mg(2.5 mg base)/3 mL 3 mL inhalation Q6H PRN multivitamin 1 tab PO DAILY [Nebulizer with supplies Use every 6 hours as need for difficulty breathing or shortness of breath. NS] Tobacco use date assessed: 11/18/24 Dental Screening Dental Screen Date: 11/18/24 Did you have a dental visit in the last 12 months?: Yes Did you have a dental problem in the last 6 months where you did not have access to dental care?: No Was dental information given to patient?: Patient has dentist HPI HPI Comments History of Present Illness Details 74-year-old lady here today for a tele alth visit, to discuss breathing issues. She has a history of COPD, does not smoke but vapes regularly. She has chronic cough productive of phlegm, accompanied by wheezing, worse at night. She has been tried on QVAR, later switched to Breo, both of which she could not tolerate. She has been doing regular nebulizer treatments using DuoNeb twice a day which seems to be helping relieve her cough and allowing her to expectorate her sputum. Works at the [employer] in [employer], and her workstations next with a flower shop which does aggravate her symptoms. [facility] Medical History Impaired fasting glucose Dyslipidemia Allergic rhinitis Normal colonoscopy Osteoarthritis Seasonal allergies COPD (chronic obstructive pulmonary disease) Surgical History History of lung surgery History of appendectomy Status post dilation and curettage History of colonoscopy History of adenoidectomy History of tonsillectomy Family History Father Colon cancer Substance use disorder Mother CVD (cardiovascular disease) Arteriosclerotic heart disease (ASHD) Mental health disorder Brother Colon polyps Substance use disorder Maternal Aunt Stomach cancer Brother Hemochromatosis Daughter No problems noted. Daughter No problems noted. Sister No problems noted. Sister No problems noted. Sister No problems noted. Sister Substance use disorder Sister Substance use disorder Sister No problems noted. Sister No problems noted. Sister No problems noted. Social History Housing: Apartment Are you a primary medicare contact specialist to a significant other at home: No Do you presently have visiting nurse or other home services: No Alcohol intake: current Alcohol intake frequency: a few times a month Alcohol type: beer Patient Tobacco Use Status: Former Tobacco user Tobacco use type: Smokeless Tobacco e-Cigarette/Vaping Use: Currently Using Frequency of e-Cigarette/Vaping Use: Daily Second Hand Smoke Exposure: Yes service: No Current occupational status: employed Cognitive needs: No Hearing needs: No Vision needs: Yes Questionnaire PHQ-9 Over the last 2 weeks, how often have you been bothered by any of the following problems? 1. Little interest or pleasure in doing things: not at all 2. Feeling down, depressed, or hopeless: not at all 3. Trouble falling or staying asleep, or sleeping too much: not at all 4. Feeling tired or having little energy: not at all 5. Poor appetite or overeating: not at all 6. Feeling bad about yourself - or that you are a failure or have let yourself or your family down: not at all 7. Trouble concentrating on things, such as reading the newspaper or watching television: not at all 8. Moving or speaking so slowly that other people could have noticed. Or the opposite - being so fidgety or restless that you have been moving around a lot more than usual: not at all 9. Thoughts that you would be better off or of hurting yourself in some way: not at all Total score: 0 Depression Screening Interpretation: Negative Depression Screening Done: Yes 72877 - PHQ-9 Billing: Yes Source: Developed by Drs. Peterson Barakat, Melissa Ramos, Leodan Olivas and colleagues, with an educational kika from [employer]. Thrive Questionnaire Date Thrive assessed: 11/18/24 I am a: Patient What is your living situation today?: I have a steady place to live Within the past 12 months, did the food you bought not last and you didn't have the money to get more?: Never true Within the past 12 months, did you worry whether your food would run out before you got money to buy more?: Never true Do you have trouble paying for medicines?: No Do you have trouble getting transportation to medical appointments?: No Do you have trouble paying your heating and electricity bill?: No Do you have trouble taking care of your child, family member or friend?: No Do you have trouble with day-to-day activities such as bathing, preparing meals, shopping, managing finances, etc.?: No Are you currently unemployed and looking for a job?: No Are you interested in more education?: No THRIVE Score: 0 AUDIT C Alcohol Use Questionnaire (AUDIT-C) 1. How often do you have a drink containing alcohol?: 2-3 times a week 2. How many drinks containing alcohol do you have on a typical day when you are drinking?: 1 or 2 3. How often do you have six or more drinks on one occasion?: Never Total Score: 3 SARAH-7 AMB Questionnaire SARAH-7 Date SARAH - 7 assessed: 11/18/24 Feeling nervous, anxious, or on edge: 0 = Not at all Not being able to stop or control worryin = Not at all Worrying too much about different things: 0 = Not at all Trouble relaxin = Not at all Being so restless that it is hard to sit still: 0 = Not at all Becoming easily annoyed or irritable: 0 = Not at all Feeling afraid as if something awful might happen: 0 = Not at all Total SARAH-7 score (0-4 normal; 5-9 mild; 10-14 moderate; 15-21 severe): 0 Source: Developed by Drs. Peterson Barakat, Melissa Ramos, Leodan Olivas and colleagues, with an educational kika from [employer]. SARAH-7 Assessment Billing SARAH-7 Assessment Tool: SARAH-7 Assessment 38443 Review of Systems Const Reports no additional complaints and Denies fever(s) ENT Reports no additional complaints Card Denies chest pain, Denies irregular heart rhythm and Denies lightheadedness Resp Reports as per HPI GI Reports no additional complaints Musc Reports no additional complaints Neuro Reports no additional complaints Aller/Immun Reports seasonal rhinorrhea Physical exam (Primary Care) Tobacco/Smoking Status: Tobacco use Status Tobacco use date assessed 11/18/24 11/18/24 08:41 Patient Tobacco Use Status Former Tobacco user 11/18/24 08:41 Tobacco use type Smokeless Tobacco 11/18/24 08:41 e-Cigarette/Vaping Use Currently Using 11/18/24 08:41 PHQ-9: PHQ-9 Score PHQ-9: Total score 0 11/18/24 09:21 Depression Screening Interpretation: Negative Thrive Assessment: Date of Thrive Assessment Date Thrive assessed 11/18/24 11/18/24 08:42 Coding Level of Care Code Tele Est Pt Level 4 (77573) Diagnoses Chronic obstructive pulmonary disease with acute exacerbation J44.1 COPD type: COPD with acute exacerbation Additional Codes SARAH-7 Assessment Billing - SARAH-7 Assessment Tool: SARAH-7 Assessment 27593 ([id number]) PHQ-9 - 22053 - PHQ-9 Billing: Yes ([id number]) Assessment & Plan Assessment & Plan (1) COPD (chronic obstructive pulmonary disease): Code(s): J44.9 - Chronic obstructive pulmonary disease, unspecified Category: Medical Qualifiers: COPD type: COPD with acute exacerbation Qualified Code(s): J44.1 - Chronic obstructive pulmonary disease with (acute) exacerbation Plan: Does not want to try another inhaler as the 1st to that she has tried gave her severe side effects which included dizziness and heart palpitations. Will continue her on nebulizer treatment at least twice a day with Brian, advised to do 1 nebulizer treatment prior to going to work and then another 1 at night. Bring her albuterol inhaler with her to work to use as needed for episodes of bronchospasm. Strongly advised to stop vaping. Pulmonary consultation obtained Patient was informed and verbally consented to the use of an ambient scribe for clinic note documentation during this visit. Orders: Referrals Pulmonology Referral J44.1 - Chronic obstructive pulmonary disease with (acute) exacerbation
--- OUTSIDE RECORDS SUMMARY | 2024-11-18 08:59 | XMS_ITS | Patient Health Record ---
Author Organization [facility] Address [address] [place] [address] Care Team Providers Care Patient Access Representative Name Role Phone Puma MARIN, Anali Primary Care Provider Steffi James Jr, Brent Unavailable [phone] ALLERGIES Allergen (clinical drug ingredient) Drug/Non Drug [...] Problem Colon cancer screening (Z12.11) Active confirmed [id number] Problem Encounter for other preprocedural examination (Z01.818) Active confirmed [id number] PLAN OF TREATMENT Future Test Test Name Order Date COLONOSCOPY 08/22/2015 COLONOSCOPY 03/13/2021 Insurance Providers Payer Name Payer Address Payer Phone Subscriber Number Group Number Insured Name Patient Relationship to Insured Coverage Start Date Coverage End Date MEDICARE OF [place] [address] [place] [id number] ABIODUN ESCOBAR Self - patient is the insured MEDEX ATTN CLAIMS [address] [place] [address] [id number] ABIODUN ESCOBAR Self - patient is the insured MEDICAL (GENERAL) HISTORY Medical History History ICD Code colonoscopy 12/07/15, five-year followup hyperplastic colon polyps hemorrhoids anxiety COPD hypertension Surgical History Surgery Date(Month/Year) appendectomy tonsillectomy lung surgery due to collapsed lung adenoidectomy
== END 2024-11-18 09:59 | disposition home or self-care (01) ==
LOC: HO.HMCC 08:43
PROVIDERS: PCP Internal Medicine; Visit Provider Internal Medicine
DX: J44.1 Chronic obstructive pulmonary disease with (acute) exacerbation (principal)

== ENCOUNTER → 2024-11-18 08:43 | Outpatient (BNVA) | payer MEDICARE, MEDICAID, SELFPAY | PROVIDERS: PCP Internal Medicine; Visit Provider Internal Medicine | DX: J44.1 Chronic obstructive pulmonary disease with (acute) exacerbation (principal) | CPT/HCPCS: 96127 ==

== ENCOUNTER 2025-01-09 08:15 | Outpatient (AMB) | payer MEDICARE, MEDICAID, SELFPAY ==
--- OUTSIDE RECORDS SUMMARY | 2025-01-09 08:37 | XMS_ITS | Patient Health Record ---
Author Organization [facility] Address [address] [place] [address] Care Team Providers Care Crna Name Role Phone Puma MARIN, Anali Primary Care Provider Brent Logan Jr Unavailable Allergies Allergen (clinical drug ingredient) Drug/Non Drug Allergy documented on EMR Reaction Allergy Type Onset Date Status azithromycin Zpack (uncoded) Unknown Allergy A ctive Reason For Referral No Information Medications Medication SIG (Take, Route, Frequency, Duration) Notes [...] Tylenol Active Ventolin HFA Active Multivitamin Active Immunizations Vaccine Route Administration Date Status Comme nts Influenza Unknown 07/18/2020 Administered Problems Problem Type SNOMED Code ICD Code Onset Dates Problem Status W/U Status Risk Notes Problem [id number] Colon cancer screening (Z12.11) Active confirmed Problem [id number] Encounter for other preprocedural examination (Z01.818) Active confirmed Plan Of Treatment Future Test Test Name Order Date COLONOSCOPY 08/22/2015 COLONOSCOPY 03/13/2021 Insurance Providers Payer Name Payer Address Payer Phone Subscriber Number Group Number Insured Name Patient Relationship to Insured Coverage Start Date Coverage End Date MEDICARE OF [place] [address] [place] [address] [id number] ABIODUN ESCOBAR Self - patient is the insured MEDEX ATTN CLAIMS [address] [place] [address] [phone] [id number] ABIODUN ESCOBAR Self - patient is the insured Medical (General) History Medical History History ICD Code colonoscopy 12/07/15, five-year followup hyperplastic colon polyps hemorrhoids anxiety COPD hypertension Surgical History Surgery Date(Month/Year) appendectomy tonsillectomy lung surgery due to collapsed lung adenoidectomy
--- NOTE | 2025-01-09 08:54 | MHC.OFFWIV ---
Intake Vital Signs 01/09/25 08:55 Weight 174 lb BP 130/80 Blood Pressure Location Rt brachial Position Sitting Pulse 79 Pulse Source Pulse Oximeter Temp 98.1 F Temp Source Oral Pulse Oximetry (%) 97 Oxygen Delivery Method Room Air Intake Visit Reasons: EP Cold, COPD Intake Note: Patient here for SOB, cough and congestion that has been present since . Patient Tobacco Use Status: Former Tobacco user Allergies barium sulfate Allergy (Unknown, Verified 01/09/25 08:58) couldn't put head down or would pass out loratadine [Claritin] Allergy (Unknown, Verified 01/09/25 08:58) heebie jeebies like going to jump out of skin varenicline [From Chantix] Allergy (Unknown, Verified 01/09/25 08:58) couldnt put head down or would pass out tiotropium [Spiriva with HandiHaler] Adverse Reaction (Unknown, Verified 01/09/25 08:58) coughing fits fluticasone furoate [From Arnuity Ellipta] Adverse Reaction (Verified 01/09/25 08:58) dizziness Do you need a note to return to daycare/school/sports/work: No HPI HPI Comments History of Present Illness Details History - The patient is a 74-year-old female with past med hx of COPD presenting with an acute respiratory infection. - Symptoms began recently and have intensified, initially presumed as allergic rhinitis given her medical history. - She reports symptoms of significant congestion, shortness of breath, wheezing, and sinus-related tooth discomfort. - Condition deteriorated despite the use of albuterol treatments and additional medications. - Household preventive measures include mask use and air sanitization. No febrile episodes have been noted. Sick contact at home. - Deterioration followed recent exacerbations requiring medical intervention and interrupted plans for pulmonary follow-up. Physical Exam General: Cooperative, healthy appearing, comfortable and no acute distress Orientation/consciousness: Patient oriented x3 Limitations: No limitations Head: Normal to inspection Ears: Hearing grossly normal bilaterally, external ears normal and TM's normal bilaterally Nose: Normal external nose present, Normal nares present and No nasal discharge present Face and sinus: Normal facial exam and Sinuses tender Mouth: Normal oral and palatal mucosa present and moist mucous membranes Throat: Yes tonsils normal, Yes uvula midline. Posterior oropharynx erythema Eyes: Appearance normal, both eyes and all related structures Neck: Normal visual inspection Respiratory: exp wheezing throughout. Normal respiratory effort, able to speak in complete sentences, no respiratory distress, not tachypneic, no tripod positioning and no use of accessory muscles. Cardiovascular: Regular rate and rhythm. Normal S1 and S2 Skin: No rashes or lesions noted Neuro: Patient oriented x3 Extremities: Normal to inspection and Yes no clubbing, cyanosis or edema PFSH Medical History Impaired fasting glucose Dyslipidemia Allergic rhinitis Normal colonoscopy Osteoarthritis Seasonal allergies COPD (chronic obstructive pulmonary disease) Surgical History History of lung surgery History of appendectomy Status post dilation and curettage History of colonoscopy History of adenoidectomy History of tonsillectomy Family History Father Colon cancer Substance use disorder Mother CVD (cardiovascular disease) Arteriosclerotic heart disease (ASHD) Mental health disorder Brother Colon polyps Substance use disorder Maternal Aunt Stomach cancer Brother Hemochromatosis Daughter No problems noted. Daughter No problems noted. Sister No problems noted. Sister No problems noted. Sister No problems noted. Sister Substance use disorder Sister Substance use disorder Sister No problems noted. Sister No problems noted. Sister No problems noted. Social History Housing: Apartment Are you a primary health care social worker to a significant other at home: No Do you presently have visiting nurse or other home services: No Alcohol intake: current Alcohol intake frequency: a few times a month Alcohol type: beer Patient Tobacco Use Status: Former Tobacco user Tobacco use type: Smokeless Tobacco e-Cigarette/Vaping Use: Currently Using Second Hand Smoke Exposure: Yes service: No Current occupational status: employed Cognitive needs: No Hearing needs: No Vision needs: Yes Review of Systems Const All systems reviewed & are unremarkable except as noted in HPI and below Physical Exam Vital Signs: Last Vital Signs Temp 98.1 F 01/09/25 08:55 Pulse 79 01/09/25 08:55 BP 130/80 01/09/25 08:55 Pulse Ox 97 01/09/25 08:55 Oxygen Delivery Method Room Air 01/09/25 08:55 Assessment & Plan Assessment & Plan (1) Lower respiratory infection (e.g., bronchitis, pneumonia, pneumonitis, pulmonitis): Code(s): J22 - Unspecified acute lower respiratory infection Plan: VSS, pt well appearing and PE remarkable for exp wheezing. Treatment for the patient's exacerbated COPD and acute respiratory infection includes a 5-day prednisone course, promoting respiratory relief and inflammation reduction. The decision to utilize a Z-Sahil addresses potential bacterial co-infection, with past usage evidencing tolerance. Tessalon Perles will aid in suppressing nocturnal cough. Continuation of her daily antihistamine is complemented by a recommendation for a decongestant. Patient medications are processed to her usual pharmacy, and precautions against late-day steroid dosing are emphasized to preserve sleep quality. The azithromycin allergy status is reviewed following recent non-reactivity. Patient was informed and verbally consented to the use of an ambient scribe for clinic note documentation during this visit (2) Acute exacerbation of chronic obstructive pulmonary disease: Code(s): J44.1 - Chronic obstructive pulmonary disease with (acute) exacerbation Plan: as above Medications: New benzonatate 200 mg PO BEDTIME PRN 10 caps 0RF cough prednisone 40 mg (2 x 20 mg) PO QAM 10 tabs 0RF azithromycin For 250 mg dose pack: take 500 mg today (day 1), then 250 mg for 4 days (days 2-5) PO 6 tabs 0RF Coding Level of Care Code Est Pt Level 3 (14901) Diagnoses Lower respiratory infection (e.g., bronchitis, pneumonia, pneumonitis, pulmonitis) J22 Acute exacerbation of chronic obstructive pulmonary disease J44.1
[2025-01-09 08:55] VITALS: BP 130/80; PULSE 79; TEMP 36.7; O2SAT 97
== END 2025-01-09 09:23 | disposition home or self-care (01) ==
PROVIDERS: PCP Internal Medicine; Visit Provider Physician Assistant
DX: J22 Unspecified acute lower respiratory infection (principal); J44.1 Chronic obstructive pulmonary disease with (acute) exacerbation

== ENCOUNTER → 2025-01-09 08:15 | Outpatient (BNVA) | payer MEDICARE, MEDICAID, SELFPAY | PROVIDERS: PCP Internal Medicine; Visit Provider Physician Assistant | DX: J22 Unspecified acute lower respiratory infection (principal); J44.1 Chronic obstructive pulmonary disease with (acute) exacerbation | CPT/HCPCS: 99212 ==

== ENCOUNTER 2025-03-12 07:18 | Emergency (ER) | payer MEDICARE, MEDICAID, OTHER, SELFPAY ==
--- NOTE | ~2025-03-12 | XR_ITS ---
CLINICAL HISTORY: sob 2 view chest x-ray. Comparison: None Findings: Normal lung volumes. Lungs are clear. No pneumothorax or pleural effusion. Heart size normal. No passive venous congestion. No midline shift or tracheal deviation. No acute fracture. Impression: 1. No acute cardiopulmonary disease. This document has been electronically signed by: Tino Manley MD on 03/12/2025 07:53:48
[2025-03-12 07:23] VITALS: BP 182/74; PULSE 86; RESP 19; TEMP 36.6; O2SAT 93; BMI 29.1
[2025-03-12 08:14] LABS: Influenza A PCR NEGATIVE (Negative); Influenza B PCR NEGATIVE (Negative); Resp Syncy Virus RNA Qual PCR NEGATIVE (Negative); SARS COV2 PCR INHOUSE NEGATIVE (Negative)
[2025-03-12 08:53] LABS: MANUAL DIFF FLAG NO
[2025-03-12 08:55] LABS: Basophils Absolute Auto 0.1 X10*3/uL (0.0-0.2); Basophils Percent Auto 0.6 % (0-2); Eosinophils Percent Auto 0.5 % (0-4); Hematocrit 40.1 % (37.0-47.0); Hemoglobin 13.8 g/dl (12.0-16.0); Imm Gran Abs Auto 0.04 X10*3/uL (0.00-0.03); Imm Gran Pct Auto 0.5 % (0.0-0.4); Lymphocytes Absolute Auto 2.2 X10*3/uL (1.2-4.9); Lymphocytes Percent Auto 27.7 % (20-40); Mean Corpuscular HGB Conc 34.4 g/dl (31.0-35.0); Mean Corpuscular Hemoglobin 30.7 pg (27.0-33.0); Mean Corpuscular Volume 89.3 fL (80.0-98.0); Mean Platelet Volume 8.5 fL (9.4-12.3); Monocytes Absolute Auto 0.7 X10*3/uL (0.1-1.2); Monocytes Percent Auto 8.5 % (2-11); Neutrophils Percent Auto 62.2 % (45-73); Platelet Count 293 X10*3/uL (160-400); Red Blood Count 4.49 X10*6/uL (4.20-5.50); Red Cell Distribution Width 14.1 % (11.0-16.0)
[2025-03-12 09:08] LABS: Alanine Aminotransferase 38 U/L (0-31); Albumin Level 4.5 g/dL (3.5-5.0); Alkaline Phosphatase 64 U/L (39-117); Anion Gap 12 (12-20); Aspartate Amino Transferase 34 U/L (5-31); Bilirubin Total 0.4 mg/dL (0.0-1.0); Blood Urea Nitrogen 15 mg/dL (9-16); Calcium 9.3 mg/dL (8.4-10.2); Carbon Dioxide 23 mmol/L (22-29); Chloride 108 mmol/L (96-108); Creatinine Clr Calc Pharmacy 62.2; Estimated Glomerular Filt Rate > 60; Glucose Random 99 mg/dL (60-115); Potassium 4.1 mmol/L (3.3-5.1); Sodium 139 mmol/L (135-145); Total Protein 7.5 g/dL (6.5-8.0)
--- NOTE | 2025-03-12 09:10 | PC.NURSE ---
Report received. Taken over care at this time.
[2025-03-12] MEDS: Albuterol Sulfate 5 MG, Albuterol Sulfate (0.083%) 2.5 MG 7.5 MG INHALE (09:28)
[2025-03-12 09:30] VITALS: PULSE 73; RESP 18; O2SAT 94
--- NOTE | 2025-03-12 09:33 | ED.SOB ---
HPI - SOB/Dyspnea General Chief Complaint: Upper Respiratory Symptoms Stated Complaint: diff breathing, copd Time Seen by Provider: 03/12/25 09:29 Source: patient Mode of arrival: ambulatory Limitations: no limitations History of Present Illness ED Provider: HPI Narrative: 74-year-old woman with cough and wheezing for the past 2 days however it sounds like her symptoms started approximately 10 days ago. No fevers or chills, cough is constant, she quit smoking last year in September, notes that her oxygen level was in the 90s. No chest pain, no hemoptysis, no abdominal pain. MD elicited complaint: shortness of breath Pertinent past history: COPD Related Data Home Medications ?Medication ?Instructions ?Recorded ?Confirmed calcium 500 mg (as 1 tab PO DAILY 04/05/21 11/09/24 carbonate)-vitamin D3 3.125 mcg (125 unit) tablet multivitamin 1 tab PO DAILY 04/05/21 11/09/24 ibuprofen 200 mg capsule 200 mg PO Q6H PRN 03/09/24 11/09/24 fluticasone furoate 100 1 inh inhalation DAILY 01/09/25 mcg/actuation blister powder for inhalation (Arnuity Ellipta) Previous Rx's ?Medication ?Instructions ?Recorded fluticasone propionate 50 1 spray intranasal DAILY #16 grams 01/09/22 mcg/actuation nasal spray,suspension (Flonase Allergy Relief) inhalational spacing device (Mark #1 ea 09/24/24 Aerosol [place] Enhancer spacer) Nebulizer with supplies #1 ea 10/04/24 azithromycin 250 mg tablet See Rx Instructions PO .COMPLEX #6 01/09/25 tabs benzonatate 200 mg capsule 200 mg PO BEDTIME PRN cough #10 01/09/25 caps prednisone 20 mg tablet 40 mg (2 x 20 mg) PO QAM #10 tabs 01/09/25 albuterol sulfate 90 mcg/actuation 2 puff inhalation Q4-6H PRN 02/28/25 aerosol inhaler Wheezing #8.5 grams ipratropium 0.5 mg-albuterol 3 mg 3 ml inhalation Q6H PRN wheezing 03/08/25 (2.5 mg base)/3 mL nebulization #90 mL soln prednisone 20 mg tablet 40 mg (2 x 20 mg) PO DAILY 5 days 03/12/25 #10 tabs Allergies Allergy/AdvReac Type Severity Reaction Status Date / Time barium sulfate Allergy Unknown couldn't Verified 03/12/25 07:25 put head down or would pass out loratadine [Claritin] Allergy Unknown heebie Verified 03/12/25 07:25 jeebies like going to jump out of skin varenicline [From Chantix] Allergy Unknown couldnt Verified 03/12/25 07:25 put head down or would pass out tiotropium AdvReac Unknown coughing Verified 03/12/25 07:25 [Spiriva with HandiHaler] fits fluticasone furoate AdvReac dizziness Verified 03/12/25 07:25 [From Arnuity Ellipta] Review of Systems Constitutional: Constitutional: Reports as per [facility] Past Medical History Medical History Impaired fasting glucose Dyslipidemia Allergic rhinitis Normal colonoscopy Osteoarthritis Seasonal allergies COPD (chronic obstructive pulmonary disease) Surgical History History of lung surgery History of appendectomy Status post dilation and curettage History of colonoscopy History of adenoidectomy History of tonsillectomy Family History Family History Father Colon cancer Substance use disorder Mother CVD (cardiovascular disease) Arteriosclerotic heart disease (ASHD) Mental health disorder Brother Colon polyps Substance use disorder Maternal Aunt Stomach cancer Brother Hemochromatosis Daughter No problems noted. Daughter No problems noted. Sister No problems noted. Sister No problems noted. Sister No problems noted. Sister Substance use disorder Sister Substance use disorder Sister No problems noted. Sister No problems noted. Sister No problems noted. Social History Social History Housing: Apartment Are you a primary md do resident urgent care to a significant other at home: No Do you presently have visiting nurse or other home services: No Alcohol intake: never Patient Tobacco Use Status: Former Tobacco user Tobacco use type: Smokeless Tobacco Smoked in Last 30 Days: No e-Cigarette/Vaping Use: Currently Using Second Hand Smoke Exposure: Yes Use of substances other than those prescribed or required for medical reasons: No Advance Directives: Yes Advance Directives Information Provided: Yes Advance Directives on File: No Do you have a plan to hurt others: No Plan service: No Current occupational status: employed Cognitive needs: No Hearing needs: No Vision needs: Yes Physical Exam Vital Signs: Vital Signs: Last Vital Signs Temp 98 F 03/12/25 07:23 Pulse 96 03/12/25 10:12 Resp 18 03/12/25 10:12 BP 130/57 L 03/12/25 10:12 Pulse Ox 95 03/12/25 10:22 O2 Del Method Room Air 03/12/25 10:22 BMI result Body Mass Index 29.1 Const: Other: Gen: ?Overall well-appearing patient CV: RRR, no obvious murmurs appreciated Resp: ?Expiratory wheezing throughout Abd: ?Bowel sounds are present, no tenderness no rebound no rigidity MSK: FROM, strength 5/5 all extremities, no lower extremity edema Skin: Warm, dry, intact, Neuro: ?Alert and oriented x3, moving upper and lower extremities symmetrically, no obvious facial asymmetry noted Medications Administered Discontinued Medications Generic Name Dose Route Start Last Admin Trade Name Cristina PRN Reason Stop Dose Admin Albuterol Sulfate 5 mg/ 7.5 mg 03/12/25 09:24 03/12/25 09:28 Albuterol Sulfate 2.5 mg INHALE 03/12/25 09:25 7.5 mg ONCE ONE Administration Methylprednisolone Sodium Succinate 125 mg 03/12/25 09:40 03/12/25 10:11 Methylprednisolone Sod Succ 125 Mg Vial IVPUSH 03/12/25 09:41 125 mg ONCE ONE Administration Medical Decision Making Medical Decision Making [facility] Narrative: Patient is presenting with shortness of breath, considerations for workup as below, chest x-ray without pneumonia, CHF, clinically appears to be COPD exacerbation, unless she does not improve with the treatments I do not anticipate that she requires CAT scan of the chest, her EKG did not reveal any dysrhythmia or changes to suspect underlying ACS 1116: Patient re-evaluated, significant improvement in her symptoms we will be discharging Differential Diagnosis Differential Diagnoses: The differential diagnosis associated with the presentation includes CHF, COPD exacerbation, pneumonia, pneumothorax, ACS, PE, Admission/Observation Consideration of admission/observation: Escalation of care including admission/observation considered Lab Data [facility] Lab Attestation statement: I reviewed the patient's lab results. 03/12/25 08:49 03/12/25 08:49 Labs: Lab Results 03/12/25 03/12/25 Range/Units 07:34 08:49 WBC 8.0 (4.8-10.8) X10*3/uL RBC 4.49 (4.20-5.50) X10*6/uL Hgb 13.8 (12.0-16.0) g/dl Hct 40.1 (37.0-47.0) % MCV 89.3 (80.0-98.0) fL MCH 30.7 (27.0-33.0) pg MCHC 34.4 (31.0-35.0) g/dl RDW 14.1 (11.0-16.0) % Plt Count 293 (160-400) X10*3/uL MPV 8.5 L (9.4-12.3) fL Immature Gran % (Auto) 0.5 H (0.0-0.4) % Neut % (Auto) 62.2 (45-73) % Lymph % (Auto) 27.7 (20-40) % [place] % (Auto) 8.5 (2-11) % Eos % (Auto) 0.5 (0-4) % Baso % (Auto) 0.6 (0-2) % Lymph # (Auto) 2.2 (1.2-4.9) X10*3/uL [place] # (Auto) 0.7 (0.1-1.2) X10*3/uL Eos # (Auto) 0.0 (0.0-0.4) X10*3/uL Baso # (Auto) 0.1 (0.0-0.2) X10*3/uL Abs Immat Gran (auto) 0.04 H (0.00-0.03) X10*3/uL Absolute Neuts (auto) 5.0 (2.0-8.3) x10*3/uL Absolute Nucleated RBC 0.000 (0.0-0.012) X10*3/uL Nucleated RBC % (auto) 0.0 (0.0-0.2) /100WBC Sodium 139 (135-145) mmol/L Potassium 4.1 D (3.3-5.1) mmol/L Chloride 108 (96-108) mmol/L Carbon Dioxide 23 (22-29) mmol/L Anion Gap 12 (12-20) BUN 15 (9-16) mg/dL Creatinine 0.85 (0.5-1.4) mg/dL Estim Creat Clear Calc 62.2 Estimated GFR > 60 Random Glucose 99 (60-115) mg/dL Calcium 9.3 (8.4-10.2) mg/dL Total Bilirubin 0.4 (0.0-1.0) mg/dL AST 34 H (5-31) U/L ALT 38 H (0-31) U/L Alkaline Phosphatase 64 (39-117) U/L Total Protein 7.5 (6.5-8.0) g/dL Albumin 4.5 (3.5-5.0) g/dL Influenza Type A (PCR) NEGATIVE (Negative) Influenza Type B (PCR) NEGATIVE (Negative) RSV RNA Qual (PCR) NEGATIVE (Negative) SARS-CoV-2 RNA (RT-PCR) NEGATIVE (Negative) Independent Interpretation I performed an independent interpretation of an: EKG (73 beats per minute, otherwise normal ECG without dysrhythmia, AV pantera blocks or ST-T changes to suspect underlying ACS, my independent interpretation) and Plain X-Ray (My independent chest xray interpretation: Lungs: Lungs are clear bilaterally without evidence of focal consolidation, pleural effusion, or pneumothorax. Cardiac silhouette is unremarkable, no obvious mediastinal widening, no obvious bony abnormalities such as fractures. Impression: Normal chest X-r) Radiology Impression Discussion of test interpretation with radiology: I have reviewed the radiologist's reading. Discharge Plan Discharge Clinical Impression: COPD (chronic obstructive pulmonary disease) Qualifiers: COPD type: COPD with acute exacerbation Qualified Code(s): J44.1 - Chronic obstructive pulmonary disease with (acute) exacerbation Patient Disposition: Home, Self-Care Additional Instructions: Continue all your current medications without change accept the for the rest of the day 2 puffs of inhaler every 4 hours or a nebulizer treatment every 4 hours, continue steroids starting tomorrow Follow up with the PCP come back to the ER for worsening symptoms or concerns Your blood work chest x-ray viral swab has been reassuring Prescriptions: New prednisone 20 mg tablet 40 mg PO DAILY 5 Days Qty: 10 0RF No Action fluticasone propionate [Flonase Allergy Relief] 50 mcg/actuation spray,suspension 1 spray intranasal DAILY Qty: 16 5RF Rx Instructions: administer into each nostril (DME) Nebulizer with supplies See Rx Instructions .Route .MEDSUPPLY Qty: 1 0RF Rx Instructions: Use every 6 hours as need for difficulty breathing or shortness of breath. albuterol sulfate 90 mcg/actuation HFA aerosol inhaler 2 puff inhalation Q4-6H PRN (Reason: Wheezing) Qty: 8.5 2RF ipratropium-albuterol 0.5 mg-3 mg(2.5 mg base)/3 mL solution for nebulization 3 ml inhalation Q6H PRN (Reason: wheezing) Qty: 90 2RF multivitamin Tablet 1 tab PO DAILY calcium carbonate-vitamin D3 500 mg(1,250mg) -125 unit Tablet 1 tab PO DAILY (DME) Mark Aerosol [place] Enhancer Spacer See Rx Instructions .Route Qty: 1 0RF Rx Instructions: As directed ibuprofen 200 mg capsule 200 mg PO Q6H PRN Arnuity Ellipta 100 mcg/actuation blister with device 1 inh inhalation DAILY prednisone 20 mg tablet 40 mg PO QAM Qty: 10 0RF azithromycin 250 mg tablet See Rx Instructions PO .COMPLEX Qty: 6 0RF Rx Instructions: For 250 mg dose pack: take 500 mg today (day 1), then 250 mg for 4 days (days 2-5) PO benzonatate 200 mg capsule 200 mg PO BEDTIME PRN (Reason: cough) Qty: 10 0RF Print Language: [place]
[2025-03-12 10:12] VITALS: BP 130/57; PULSE 96; RESP 18; O2SAT 95
[2025-03-12 10:22] VITALS: PULSE 96; O2SAT 95
[2025-03-12 11:23] VITALS: BP 125/77; PULSE 99; RESP 18; TEMP 36.8; O2SAT 95
== END 2025-03-12 11:24 | disposition home or self-care (01) ==
PROVIDERS: Emergency Provider Emergency Medicine; PCP Internal Medicine
DX: J44.1 Chronic obstructive pulmonary disease with (acute) exacerbation (principal); R06.02 Shortness of breath; R05.9 Cough, unspecified; Z87.891 Personal history of nicotine dependence; Z03.818 Encounter for observation for suspected exposure to other biological agents ruled out
CPT/HCPCS: 0241U; 36415; 71046; 80053; 85025; 94640; 96374; 99284; 99285; J2919

== ENCOUNTER 2025-03-20 09:17 | Outpatient (AMB) | payer MEDICARE, MEDICAID, SELFPAY ==
[2025-03-20 09:20] VITALS: BP 142/84; PULSE 82; O2SAT 96; BMI 29.0
--- NOTE | 2025-03-20 09:20 | MHC.OFFVIS ---
Vital Signs 03/20/25 09:20 Height 5 ft 5 in Weight 174 lb 2.643 oz BMI 29.0 BP 142/84 H Blood Pressure Location Rt brachial Position Sitting Pulse 82 Pulse Source Pulse Oximeter Pulse Oximetry (%) 96 Oxygen Delivery Method Room Air Intake Visit Reasons: COPD Allergies barium sulfate Allergy (Unknown, Verified 03/20/25 09:23) couldn't put head down or would pass out loratadine [Claritin] Allergy (Unknown, Verified 03/20/25 09:23) heebie jeebies like going to jump out of skin varenicline [From Chantix] Allergy (Unknown, Verified 03/20/25 09:23) couldnt put head down or would pass out tiotropium [Spiriva with HandiHaler] Adverse Reaction (Unknown, Verified 03/20/25 09:23) coughing fits fluticasone furoate [From Arnuity Ellipta] Adverse Reaction (Verified 03/20/25 09:23) dizziness HPI HPI COPD: Details: Vanessa is a pleasant 74-year-old female, former 25+ pack year smoker, quit 2022 with underlying COPD and allergic rhinitis. She was referred by PCP for pulmonary evaluation. At baseline patient has been moderately controlled on albuterol MDI and DuoNeb. She has previously been unable to tolerate Breo, Dulera and QVAR due to dizziness/tachycardia. She did tolerate Arnuity however had suboptimal effect. She currently reports ongoing chest congestion with difficulty to expectorate, dyspnea on exertion and wheezing. She was seen in the ED 03/12 treated with prednisone however continues with symptoms. She denies prior history of asthma. She endorses seasonal allergies, previously receiving allergen immunotherapy however stopped about a year ago due to minimal effect. She denies history of recurrent respiratory infections. She reports multiple first-degree family members with asthma. She denies any occupational exposures. [facility] Medical History Impaired fasting glucose Dyslipidemia Allergic rhinitis Normal colonoscopy Osteoarthritis Seasonal allergies COPD (chronic obstructive pulmonary disease) Surgical History History of lung surgery History of appendectomy Status post dilation and curettage History of colonoscopy History of adenoidectomy History of tonsillectomy Family History Father Colon cancer Substance use disorder Mother CVD (cardiovascular disease) Arteriosclerotic heart disease (ASHD) Mental health disorder Brother Colon polyps Substance use disorder Maternal Aunt Stomach cancer Brother Hemochromatosis Daughter No problems noted. Daughter No problems noted. Sister No problems noted. Sister No problems noted. Sister No problems noted. Sister Substance use disorder Sister Substance use disorder Sister No problems noted. Sister No problems noted. Sister No problems noted. Social History Housing: Apartment Are you a primary animal care provider to a significant other at home: No Do you presently have visiting nurse or other home services: No Alcohol intake: never Patient Tobacco Use Status: Former Tobacco user Tobacco use type: Smokeless Tobacco e-Cigarette/Vaping Use: Currently Using Second Hand Smoke Exposure: Yes service: No Current occupational status: employed Cognitive needs: No Hearing needs: No Vision needs: Yes Review of Systems Const Denies chills, Denies excessive sweating, Denies fever(s), Denies headache(s) and Denies night sweats Eyes Denies dry eyes, Denies irritation and Denies itchy eyes ENT Reports Normal hearing present, Denies headache(s), Denies nasal congestion, Denies nasal discharge, Denies post nasal drip and Denies sore throat Card Denies chest pain, Denies chest pain at rest, Denies chest pain with activity, Denies claudication, Denies leg edema, Denies orthopnea and Denies paroxysmal nocturnal dyspnea Resp Denies excessive phlegm production, Denies pain on inspiration, Denies pain with cough and Denies stridor Musc Denies myalgias Neuro Reports Normal hearing present and Denies headache(s) Endo Denies excessive sweating Christiano/Lymph Denies lymphadenopathy Aller/Immun Denies itchy eyes and Denies seasonal rhinorrhea Physical Exam Vital Signs: Last Vital Signs Pulse 82 03/20/25 09:20 BP 142/84 H 03/20/25 09:20 Pulse Ox 96 03/20/25 09:20 Oxygen Delivery Method Room Air 03/20/25 09:20 BMI result Body Mass Index 29.0 Const General: cooperative, healthy appearing, comfortable, no acute distress, well developed and alert Orientation/consciousness: patient oriented x3 Limitations: no limitations HEENT Head: Yes normal to inspection, Yes normocephalic and Yes atraumatic Ears: hearing grossly normal bilaterally and external ears normal Eyes General: appearance normal, both eyes and all related structures Eyelids: Yes eyelids normal Sclerae: sclerae normal EOM: EOMs intact bilaterally Neck Neck: Yes normal visual inspection and Yes no lymphadenopathy Lymphatic: no lymphadenopathy noted Chest Chest palpation & inspection: normal inspection of the chest Resp Effort & Inspection: normal respiratory effort, able to speak in complete sentences, no audible wheezes, no cough, no stridor, not tachypneic, no tripod positioning and no use of accessory muscles Auscultation: rhonchi and wheezes Cardio Jugular venous distension: no JVD Rate: regular rate Rhythm: regular rhythm Skin Other: warm, dry General skin exam: no rashes or lesions noted Neuro General: patient oriented x3 Cranial nerves: Yes Normal hearing present Cognition (Neuro): normal cognition Gait exam (Neuro): Normal gait present Extrem General: Yes normal to inspection, Yes capillary refill normal, Yes no clubbing, cyanosis or edema and Yes no pedal edema Psych Appearance: grossly normal and well kempt Speech and movement: Normal speech and movement present and Clear speech present Affect: normal affect Attitude: cooperative Thought process: Normal thought process present Thought content: Normal thought content present Insight: Good insight present (Psych) Judgement: Good judgement present (Psych) Results Reviewed Results Reviewed: [address] [address] [address] Scan Report Signed Patient: Vanessa Prieto MR#: [id number] : 1950 Acct:[id number] Age/Sex: 73 / F ADM Date: 09/26/24 Loc: .ED Attending Dr: Ordering Physician: Paresh Anderson MD Date of Service: 09/26/24 Procedure(s): CT angio chest PE protocol Accession Number(s): [id number] cc: Anali Bartholomew MD; Paresh Anderson MD~ EXAMINATION: CT ANGIOGRAM OF THE CHEST WITH AND WITHOUT CONTRAST (CT PULMONARY ANGIOGRAM FOR PE) CLINICAL INFORMATION: Dyspnea, elevated D-dimer COMPARISON: No pertinent prior studies are available for comparison. TECHNIQUE: Prior to contrast administration, noncontrast localization images were obtained. Subsequently, multidetector volumetric imaging was performed from the thoracic inlet to below the diaphragms following the administration of 65 mL Omnipaque 350 intravenous contrast. No contrast reaction reported. Sagittal, coronal, and MIP oblique sagittal reformatted images were obtained on the CT workstation, uploaded to PACS, and reviewed. Total exam dose-length product 262 mGy-cm FINDINGS: QUALITY OF STUDY/CONTRAST BOLUS: Satisfactory. PULMONARY ARTERIES: No central or segmental pulmonary emboli. THORACIC AORTA: No aneurysm or dissection. LUNG: Centrilobular and paraseptal emphysema. Mucous plugging in the bilateral lower lobes. No focal consolidation PLEURA: No pleural effusion or pneumothorax. MEDIASTINUM: Normal heart size. No pericardial effusion. No hilar or mediastinal lymphadenopathy. No evidence of septal bowing or right heart strain. CHEST WALL/AXILLA: No axillary or internal mammary lymphadenopathy. OSSEOUS STRUCTURES: No acute or suspicious osseous abnormality. UPPER ABDOMEN: Partially visualized subcentimeter hypodense lesions in the right lobe. No reflux of contrast into the hepatic veins to suggest elevated right heart pressures. CT/CT angio chest PE protocol IMPRESSION: 1. No central or segmental pulmonary emboli. 2. Mucous plugging in the bilateral lower lobes. VTE: negative. Electronically signed by: Gato Rosenberg MD 09/26/2024 07:55 PM [facility] Assessment & Plan (1) COPD (chronic obstructive pulmonary disease): Code(s): J44.9 - Chronic obstructive pulmonary disease, unspecified Category: Medical Qualifiers: COPD type: COPD with acute exacerbation Qualified Code(s): J44.1 - Chronic obstructive pulmonary disease with (acute) exacerbation (2) Seasonal allergies: Code(s): J30.2 - Other seasonal allergic rhinitis Category: Medical (3) Personal history of tobacco use: Code(s): Z87.891 - Personal history of nicotine dependence Category: Social Hx Plan Vanessa presents for pulmonary evaluation with current exacerbation. Will treat with azithromycin and prednisone. She is aware to call if symptoms do not improve, or if things worsen seek emergent care. She previously was able to tolerate Arnuity however had suboptimal effect, will send in Arnuity 200 mcg. Discussed importance of good oral hygiene to prevent thrush. Will send for PFT to assess severity of COPD. She had prior CTA 09/23/2024 which was unremarkable. Discussed lung screening program however patient would like to defer repeat imaging at this time. Patient with h/o multiple environmental allergens, previously with suboptimal effect with allergen immunotherapy. Discussed possible biologic in the future. All questions were answered and patient is in agreement of plan. Will follow-up in 6-8 weeks or sooner if needed. Orders: Orders PFT pulmonary function test Today J44.1 - Chronic obstructive pulmonary disease with (acute) exacerbation Medications: New fluticasone furoate 200 mcg/actuation (Arnuity Ellipta) 1 inh inhalation DAILY 30 ea 6RF azithromycin For 250 mg dose pack: take 500 mg today (day 1), then 250 mg for 4 days (days 2-5) PO 6 tabs 0RF prednisone 40 mg (2 x 20 mg) PO DAILY 10 tabs 0RF Coding Level of Care Code New Pt Level 4 (78505) Diagnoses Chronic obstructive pulmonary disease with acute exacerbation J44.1 COPD type: COPD with acute exacerbation Seasonal allergies J30.2 Personal history of tobacco use Z87.659
--- OUTSIDE RECORDS SUMMARY | 2025-03-20 10:00 | XMS_ITS | Patient Health Record ---
Author Organization [facility] Lucia brandy MacedoRemigio Address [address] [place] [address] Care Team Providers Care Community Planner Name Role Phone Puma MARIN, Anali Omalley Primary Care Provider Un available Black, Jena Unavailable [phone] Reason For Referral No Information Medications Medication SIG (Take, Route, Frequency, Duration) Notes Start Date End Date Status Ativan 0.5 MG 1 tablet at bedtime as needed Orally Once a day Active ZyrTEC Allergy 10 MG 1 tablet Orally Onc e a day for 30 day(s) Active Work Note . . . . for . 11/09/2013 Activ e Acetaminophen-Codeine 300-30 MG 1 tablet as needed Orally every 6 hrs for as needed 10/27/2013 Not-Taking Social History Tobacco use other than smoking: Question Answer Notes Are you an other tobacco user? No Problems Problem Type SNOMED Code ICD Code Onset Dates Problem Status W/U Status Risk Notes Problem Verruca plantaris (63674306) Verruca Plantaris (078.19) Active confirmed Problem Pain in Limb (729.5) Active confirmed Plan Of Treatment Pending Test Test Name Order Date 86225-Cbfw Destruction, 10-1810/18/2012 21804-Ymsj Destruction, 10-1811/18/2012 43388-Grgd Destruction, 10-1806/13/2013 97417-Mscz Destruction, 10-1807/14/2013 69929-Vkmd Destruction, 10-1808/19/2013 76228-Nvao Destruction, 10-1809/07/2013 56304- Debride <25 sq cm 11/09/2013 23578- Debride <25 sq cm 03/01/2014 39988- Debride <25 sq cm 04/10/2014 21691 I&D ABSCESS- SIMPLE,SINGLE 013 46532- Biopsy of skin lesion 10/27/2013 Insurance Providers Payer Name Payer Address Payer Phone Subscriber Number Group Number Insured Name Patient Relationship to Insured Coverage Start Date Coverage End Date [employer] [address] [place], [place] [phone] [id number] Vanessa Prieto Self - patient is the insured Medical (General) History Medical History History ICD Code measles mumps chicken pox Surgical History Surgery Date(Month/Year) appendectomy 1958 lung surgery 1972 tonsillectomy and adenoidectomy 1958
== END 2025-03-20 10:04 | disposition home or self-care (01) ==
LOC: HO.HPS 09:18
PROVIDERS: PCP Internal Medicine; Visit Provider Nurse Practitioner Family
DX: J44.1 Chronic obstructive pulmonary disease with (acute) exacerbation (principal); J30.2 Other seasonal allergic rhinitis; Z87.891 Personal history of nicotine dependence
CPT/HCPCS: 99204

== ENCOUNTER → 2025-03-20 09:17 | Outpatient (BNVA) | payer MEDICARE, MEDICAID, SELFPAY | PROVIDERS: PCP Internal Medicine; Visit Provider Nurse Practitioner Family | DX: J44.1 Chronic obstructive pulmonary disease with (acute) exacerbation (principal); J30.2 Other seasonal allergic rhinitis; Z87.891 Personal history of nicotine dependence | CPT/HCPCS: 99202 ==

== ENCOUNTER 2025-03-30 10:39 | Outpatient (AMB) | payer MEDICARE, MEDICAID, SELFPAY ==
--- NOTE | 2025-03-30 10:44 | AM.OFFVISMDC ---
Intake Vital Signs 03/30/25 10:45 Height 5 ft 5 in Weight 175 lb BMI 29.1 BP 135/80 Blood Pressure Location Lt brachial Position Sitting Respiration 17 Pulse 89 Pulse Source Pulse Oximeter Temp 98.3 F Temp Source Oral Pulse Oximetry (%) 98 Oxygen Delivery Method Room Air Intake Visit Reasons: SWV G0439 Intake Note: Pt is here today for her SWV: last mammogram 06/10/24, bone density scan 06/10/24, colonoscopy 06/04/21 Allergies barium sulfate Allergy (Unknown, Verified 03/30/25 11:01) couldn't put head down or would pass out loratadine (Claritin) Allergy (Unknown, Verified 03/30/25 11:01) heebie jeebies like going to jump out of skin varenicline (From Chantix) Allergy (Unknown, Verified 03/30/25 11:01) couldnt put head down or would pass out tiotropium (Spiriva with HandiHaler) Adverse Reaction (Unknown, Verified 03/30/25 11:01) coughing fits fluticasone furoate (From Arnuity Ellipta) Adverse Reaction (Verified 03/30/25 11:01) dizziness Medication List - Last Reconciled 03/30/25 by Anali Bartholomew MD albuterol sulfate 90 mcg/actuation 2 puffs inhalation Q4-6H PRN calcium carbonate-vitamin D3 500 mg-3.125 mcg (125 unit) 1 tab PO DAILY cetirizine 10 mg PO DAILY PRN fluticasone furoate 200 mcg/actuation (Arnuity Ellipta) 1 inh inhalation DAILY inhalational spacing device (Mark Aerosol [place] Enhancer spacer) As directed ipratropium-albuterol 0.5 mg-3 mg(2.5 mg base)/3 mL 3 mL inhalation Q6H PRN multivitamin 1 tab PO DAILY [Nebulizer with supplies Use every 6 hours as need for difficulty breathing or shortness of breath. NS] HPI SWV G0439 HPI Details SWV ? 74 year old lady with history of allergic rhinitis, former smoker, COPD, arthritis, prediabetes, hypertension, hyperlipidemia, presents for her ? Annual Wellness Visit, subsequent visit.? She is up-to-date with her screening mammogram done 06/10/24 together with her bone density scan which showed normal bone density in her lumbar spine left femoral neck and left femur. She no longer gets cervical cancer screenings. She is up-to-date with her screening colonoscopy done 06/04/2021, with a hyperplastic polyp removed by Dr. James, repeat due again in 2025. She had a normal fasting lipid screening done 09/08/2024, and random glucose was checked March 2025 which came back at night 9 mg/dL. She is up-to-date with all her vaccinations. ? Medical / Social History Reviewed? Past Medical History ?Yes . ? [place] of Care / Care Team list updated ?Yes . ? Surgical/Hospitalization History ?Yes . ? Current Medications (including OTC and supplements) ?Yes . ? Family History ?Yes . ? Tobacco Control form ?Yes . ? AUDIT-C (Alcohol use) form ?Yes . ? Illicit drug use in Social History ?Yes . ? Current diagnosis of depression? ?No ? Appropriate PHQ2/PHQ9 completed ?Yes . ? Data entered by ?Instant Print Operator and reviewed by provider ? Fall Risk ? Fall History? Have you had any falls with injury in the past year? ?No . ? Have you had two or more falls in the past year? ?No . ? Fall Risk Assessment: ?No falls in the past year . ? HRA filled out by the patient, reviewed by Provider and scanned. ?SWV ? Balance? Romberg ?negative ? Tandem walk ?unable. ? Walk and Turn ?Yes . ? Rise from sit to stand ?Yes . ?Vision? Corrective lens ?no ? Vision screen ? Up-to-date, currently sees Dr. Claire ?Hearing? Whisper test ?pass . ?Written Plan?Completed. See Patient Documents.? PFSH Medical History Impaired fasting glucose Dyslipidemia Allergic rhinitis Normal colonoscopy Osteoarthritis Seasonal allergies COPD (chronic obstructive pulmonary disease) Surgical History History of lung surgery History of appendectomy Status post dilation and curettage History of colonoscopy History of adenoidectomy History of tonsillectomy Family History Father Colon cancer Substance use disorder Mother CVD (cardiovascular disease) Arteriosclerotic heart disease (ASHD) Mental health disorder Brother Colon polyps Substance use disorder Maternal Aunt Stomach cancer Brother Hemochromatosis Daughter No problems noted. Daughter No problems noted. Sister No problems noted. Sister No problems noted. Sister No problems noted. Sister Substance use disorder Sister Substance use disorder Sister No problems noted. Sister No problems noted. Sister No problems noted. Social History Housing: Apartment Are you a primary intensive care medicine specialist to a significant other at home: No Do you presently have visiting nurse or other home services: No Alcohol intake: never Patient Tobacco Use Status: Former Tobacco user Tobacco use type: Smokeless Tobacco e-Cigarette/Vaping Use: Currently Using Second Hand Smoke Exposure: Yes service: No Current occupational status: employed Cognitive needs: No Hearing needs: No Vision needs: Yes Female Reproductive History Menstrual Menopause type: natural Questionnaire Medicare Wellness Checkup [age] What gender do you identify with?: female During the past 4 weeks, how much have you been bothered by emotional problems such as feeling anxious, depressed, irritable, sad or downhearted, and blue?: not at all During the past 4 weeks, has your physical & emotional health limited your social activities with family, friends, neighbors, or groups?: slightly During the past 4 weeks, how much bodily pain have you generally had?: no pain During the past 4 weeks, was someone available to help you if you needed & wanted help?: yes, as much as I wanted During the past 4 weeks, what was the hardest physical activity you could do for at least 2 minutes?: moderate Can you get to places out of walking distance without help? (For eg., can you travel alone on buses, taxis or drive your car?): Yes Can you go shopping for groceries or clothes without someone's help?: Yes Can you prepare your own meals?: Yes Can you do your housework without help?: Yes Because of any health problems, do you need the help of another person with your personal care needs such as eating, bathing, dressing or getting around the house?: No Can you handle your own money without help?: Yes During the past 4 weeks, how would you rate your health in general?: good During the past 4 weeks how have things been going for you?: pretty well Are you having difficulties driving your car?: no Do you always fasten your seat belt when you are in a car?: yes, usually During past 4 weeks, have you been bothered by the following: never: Falling or dizzy when standing up, Sexual problems?, Trouble eating well?, Teeth or denture problems?, Problems using the telephone? and Tiredness or fatigue? Have you fallen 2 or more times in the past year?: No Are you afraid of falling?: Yes Are you a smoker?: no During the past 4 weeks, how many drinks of wine, beer, or other alcoholic beverages did you have?: 2-5 drinks per week Do you exercise for about 20 minutes 3 or more times a week?: yes, all the time Have you been given information to help with the following?: no: Hazards in your house that might hurt you? and no: Keeping track of your medications? How often do you have trouble taking medicines the way you have been told to take them?: I do not have to take medicine How confident are you that you can control & manage most of your health problems?: very confident What is your race?: White Mini Mental State Exam (MMSE) Orientation What is the (year) (season) (date) (day) (month)?: year (2024), season (summer), date (03/30/25), day () and month (march) Where are we (state) (county) (town or city) (hospital) (floor)?: state ([place]), county ([place]), town or city ([place]) and hospital/clinic ([facility]) Score Score: 9 Activity of Daily Living Bathing - sponge bath, tub bath or shower: receives no assistance (gets in/out by self, if usual bathing means Dressing - getting clothes from closets & drawers, including inner/outer garments & fasteners.: gets clothes & gets completely dressed without help Toileting - going to the 'toilet room' for urine/bowel elimination & cleaning self/arranging clothes: goes to toilet room, cleans self, arranges clothes without help Transfer: moves in & out of bed and chair without help (may use support object) Continence: controls urination/bowel movements completely by self Feeding: feeds self without help Total Score: 0 Information obtained from: patient Using telephone: independent Traveling: independent Shopping: independent Preparing meals: independent Housework: independent Taking medicine: independent Managing money: independent PHQ-9 Over the last 2 weeks, how often have you been bothered by any of the following problems? 1. Little interest or pleasure in doing things: not at all 2. Feeling down, depressed, or hopeless: not at all 3. Trouble falling or staying asleep, or sleeping too much: not at all 4. Feeling tired or having little energy: not at all 5. Poor appetite or overeating: not at all 6. Feeling bad about yourself - or that you are a failure or have let yourself or your family down: not at all 7. Trouble concentrating on things, such as reading the newspaper or watching television: not at all 8. Moving or speaking so slowly that other people could have noticed. Or the opposite - being so fidgety or restless that you have been moving around a lot more than usual: not at all 9. Thoughts that you would be better off or of hurting yourself in some way: not at all Total score: 0 Depression Screening Interpretation: Negative Depression Screening Done: Yes 36231 - PHQ-9 Billing: Yes Source: Developed by Drs. Peterson Barakat, Melissa Ramos, Leodan Olivas and colleagues, with an educational kika from [employer]. Physical Exam Vital Signs: Last Vital Signs Temp 98.3 F 03/30/25 10:45 Pulse 89 03/30/25 10:45 Resp 17 03/30/25 10:45 BP 170/80 H 03/30/25 10:45 Pulse Ox 98 03/30/25 10:45 Oxygen Delivery Method Room Air 03/30/25 10:45 BMI result Body Mass Index 29.1 Assessment & Plan Assessment & Plan (1) Encounter for subsequent annual wellness visit (AWV) in Medicare patient: Code(s): Z00.00 - Encounter for general adult medical examination without abnormal findings Plan: Medical wellness checklist reviewed, discussed with patient and updated. She is up-to-date with the vaccines, mammogram screening bone density scan and colonoscopy. (2) COPD (chronic obstructive pulmonary disease): Code(s): J44.9 - Chronic obstructive pulmonary disease, unspecified Qualifiers: COPD type: COPD with acute exacerbation Qualified Code(s): J44.1 - Chronic obstructive pulmonary disease with (acute) exacerbation Plan: Former cigarette smoker, Followed by Pulmonary, currently on Arnuity Ellipta, and nebulizer treatments using DuoNeb (3) Dyslipidemia: Code(s): E78.5 - Hyperlipidemia, unspecified Plan: Fasting lipids checked 09/08/2025 showed results within normal limits. Continue with adherence to healthy eating habits and getting regular exercise (4) Impaired fasting glucose: Code(s): R73.01 - Impaired fasting glucose Plan: Your previous fasting blood sugars were elevated above 100 mg/dL. Impaired glucose metabolism increases the risk for developing diabetes mellitus type 2, as well as heart attack and stroke later on. Lifestyle changes that promotes weight loss, healthy eating habits, and regular exercise are important, and can prevent the progression to diabetes (5) Allergic rhinitis: Code(s): J30.9 - Allergic rhinitis, unspecified Plan: Takes cetirizine 10 mg daily (6) Advanced directives, counseling/discussion: Code(s): Z71.89 - Other specified counseling Plan: Initiated the conversation about Advanced Directives. Advanced Directives help patients prepare for current and future decisions about their medical treatment and place of care. Discussed with patient that it is a process where a patients current condition and prognosis are reviewed, their wishes for information regarding their illness are elicited, and likely medical dilemmas are presented and options discussed. Healthcare proxy form completed today, already did her MOLST form in the previous visit. These forms can be amended as needed, reviewed yearly and make changes as needed Quality Reporting (2019) Depression/Bipolar (159/160/161/177) PHQ-9: Total score: 0 Coding Level of Care Code Medicare Subsequent (G0439) Diagnoses Encounter for subsequent annual wellness visit (AWV) in Medicare patient Z00.00 Chronic obstructive pulmonary disease with acute exacerbation J44.1 COPD type: COPD with acute exacerbation Dyslipidemia E78.5 Impaired fasting glucose R73.01 Allergic rhinitis J30.9 Advanced directives, counseling/discussion Z71.89 CPT Codes Advance Care Planning - Time spent: 16-45 minutes ([id number]) Additional Codes PHQ-9 - 44003 - PHQ-9 Billing: Yes ([id number]) Advance Care Planning Advance Care Planning discussion: Completed/Scanned Date of discussion: 03/30/25 Who was present: Patient Forms completed: Health Care Proxy Time spent: 16-45 minutes Actual minutes spent: 3
[2025-03-30 10:45] VITALS: BP 135/80; PULSE 89; RESP 17; TEMP 36.8; O2SAT 98; BMI 29.1
--- OUTSIDE RECORDS SUMMARY | 2025-03-30 12:28 | XMS_ITS | Patient Health Record ---
Author Organization [facility] Lucia brandy Remigio Address [address] [place] [address] Care Team Providers Care Biologist Aide Name Role Phone Puma MARIN, Anali Omalley Primary Care Provider Un available Black, Jena Unavailable [phone] Reason For Referral No Information Medications Medication SIG (Take, Route, Frequency, Duration) Notes Start Date End Date Status Ativan 0.5 MG 1 tablet at bedtime as needed Orally Once a day Active ZyrTEC Allergy 10 MG 1 tablet Orally Onc e a day; Duration: 30 day(s) Active Work Note . . . .; Duration: . 11/09/2013 Active Acetaminophen-Codeine 300-30 MG 1 tablet as needed Orally every 6 hrs; Duration: as needed 10/27/2013 Not-Taking Social History Tobacco use other than smoking: Question Answer Notes Are you an other tobacco user? No Problems Problem Type SNOMED Code ICD Code Onset Dates Problem Status W/U Status Risk Notes Problem Verruca plantaris (49102021) Verruca Plantaris (078.19) Active confirmed Problem Pain in Limb (729.5) Active confirmed Plan Of Treatment Pending Test Test Name Order Date [id number]-Vtom Destruction, 10-1810/18/2012 13098-Ltwh Destruction, 10-1811/18/2012 50858-Ekzg Destruction, 10-1806/13/2013 09462-Cmru Destruction, 10-1807/14/2013 14479-Cmvu Destruction, 10-1808/19/2013 00128-Dyxz Destruction, 10-1809/07/2013 58761- Debride <25 sq cm 11/09/2013 00762- Debride <25 sq cm 03/01/2014 45382- Debride <25 sq cm 04/10/2014 34392 I&D ABSCESS- SIMPLE,SINGLE 013 51295- Biopsy of skin lesion 10/27/2013 Insurance Providers Payer Name Payer Address Payer Phone Subscriber Number Group Number Insured Name Patient Relationship to Insured Coverage Start Date Coverage End Date [facility] [address] [place] [phone] [id number] Vanessa Prieto Self - patient is the insured Medical (General) History Medical History History ICD Code measles mumps chicken pox Surgical History Surgery Date(Month/Year) appendectomy 1958 lung surgery 1972 tonsillectomy and adenoidectomy 1958
== END 2025-03-30 11:27 | disposition home or self-care (01) ==
PROVIDERS: PCP Internal Medicine; Visit Provider Internal Medicine
DX: Z00.00 Encounter for general adult medical examination without abnormal findings (principal); J44.1 Chronic obstructive pulmonary disease with (acute) exacerbation; E78.5 Hyperlipidemia, unspecified; R73.01 Impaired fasting glucose; J30.9 Allergic rhinitis, unspecified; Z71.89 Other specified counseling

== ENCOUNTER → 2025-03-30 10:39 | Outpatient (BNVA) | payer MEDICARE, SELFPAY | PROVIDERS: PCP Internal Medicine; Visit Provider Internal Medicine | DX: Z00.00 Encounter for general adult medical examination without abnormal findings (principal); J44.1 Chronic obstructive pulmonary disease with (acute) exacerbation; E78.5 Hyperlipidemia, unspecified; R73.01 Impaired fasting glucose; J30.9 Allergic rhinitis, unspecified; Z71.89 Other specified counseling | CPT/HCPCS: 96127 ==

== ENCOUNTER 2025-04-04 08:03 | Outpatient (AMB) | payer MEDICARE, SELFPAY ==
--- OUTSIDE RECORDS SUMMARY | 2025-04-04 08:07 | XMS_ITS | Patient Health Record ---
Author Organization [facility] Lucia brandy [place] Address [address] [address] Care Team Providers Care Head Usher Name Role Phone Puma MARIN, Anali Omalley Primary Care Provider Un available Black, Jena Unavailable [phone] Reason For Referral No Information Medications Medication [...] W/U Status Risk Notes Problem Verruca plantaris (49718899) Verruca Plantaris (078.19) Active confirmed Problem Pain in limb (92369117) Pain in Limb (729.5) Active confirmed Plan Of Treatment Pending Test Test Name Order Date 52851-Iewz Destruction, 10-1810/18/2012 17220-Ijxa Destruction, 10-1811/18/2012 03785-Yjsx Destruction, 10-1806/13/2013 14981-Sydk Destruction, 10-1807/14/2013 95737-Ebfr Destruction, 10-1808/19/2013 02384-Gana Destruction, 10-1809/07/2013 29632- Debride <25 sq cm 11/09/2013 27371- Debride <25 sq cm 03/01/2014 84272- Debride <25 sq cm 04/10/2014 34373 I&D ABSCESS- SIMPLE,SINGLE 013 96007- Biopsy of skin lesion 10/27/2013 Insurance Providers Payer Name Payer Address Payer Phone Subscriber Number Group Number Insured Name Patient Relationship to Insured Coverage Start Date Coverage End Date [facility] [address] [place] [phone] [id number] Vanessa Prieto Self - patient is the insured Medical (General) History Medical History History ICD Code measles mumps chicken pox Surgical History Surgery Date(Month/Year) appendectomy 1958 lung surgery 1972 tonsillectomy and adenoidectomy 1958
--- OUTSIDE RECORDS SUMMARY | 2025-04-04 08:08 | XMS_ITS | Patient Health Record ---
Author Organization [facility] Address [address] [place] [address] Care Team Providers Care Theatrical Variety Agent Name Role Phone Puma MARIN, Anali Primary Care Provider Brent Logan Jr Unavailable [phone] Allergies Allergen (clinical drug ingredient) Drug/Non Drug [...] Problem Status W/U Status Risk Notes Problem [id number] Colon cancer screening (Z12.11) Active confirmed Problem 32720963 Encounter for other preprocedural examination (Z01.818) Active confirmed Plan Of Treatment Future Test Test Name Order Date COLONOSCOPY 08/22/2015 COLONOSCOPY 03/13/2021 Insurance Providers Payer Name Payer Address Payer Phone Subscriber Number Group Number Insured Name Patient Relationship to Insured Coverage Start Date Coverage End Date [employer] [address] [place] [address] [phone] [id number] ESCOBAR Self - patient is the insured [employer] CLAIM[employer] [address] [place] [address] [phone] [id number] ABIODUN ESCOBAR Self - patient is the insured Medical (General) History Medical History History ICD Code colonoscopy 12/07/15, five-year followup hyperplastic colon polyps hemorrhoids anxiety COPD hypertension Surgical History Surgery Date(Month/Year) appendectomy tonsillectomy lung surgery due to collapsed lung adenoidectomy
[2025-04-04 08:16] VITALS: BP 128/58; PULSE 84; TEMP 36.8; O2SAT 97; BMI 29.1
--- NOTE | 2025-04-04 08:16 | AM.OFFWIN_ITS ---
Intake Vital Signs 04/04/25 08:16 Height 5 ft 5 in Weight 175 lb BMI 29.1 BP 128/58 L Blood Pressure Location Rt brachial Position Sitting Pulse 84 Pulse Source Pulse Oximeter Temp 98.3 F Temp Source Oral Pulse Oximetry (%) 97 Oxygen Delivery Method Room Air Intake Visit Reasons: EP Bronchitis? Intake Note: pt reports throat pain, pain swallowing, productive coughing, mild headache x 1weeks Patient Tobacco Use Status: Former Tobacco user Allergies barium sulfate Allergy (Unknown, Verified 04/04/25 08:23) couldn't put head down or would pass out loratadine (Claritin) Allergy (Unknown, Verified 04/04/25 08:23) heebie jeebies like going to jump out of skin varenicline (From Chantix) Allergy (Unknown, Verified 04/04/25 08:23) couldnt put head down or would pass out tiotropium (Spiriva with HandiHaler) Adverse Reaction (Unknown, Verified 04/04/25 08:23) coughing fits fluticasone furoate (From Arnuity Ellipta) Adverse Reaction (Verified 04/04/25 08:23) dizziness Do you need a note to return to daycare/school/sports/work: No HPI HPI Comments History of Present Illness Details History - The patient is a 74-year-old female pr esenting with persistent cough and sore throat. - The cough has persisted for about thre e weeks, initially improving with medica tion but worsening after starting a new inhaler. - The sore throat began after using the inhaler, described as severe, with a sensation of a knife in the throat. - The patient reports a headache associa za with the cough and sore throat. - Wheezing was noted on , absent on Thursday and Thursday, suggesting variability in respiratory symptoms. - She denies fever or chills. She denies CP, SOB, abd pain, n/v/d. Physical Exam General: Cooperative, healthy appearing, comfortable and no acute distress Orientation/consciousness: Patient oriented x3 Head: Normal to inspection Ears: Hearing grossly normal bilaterally, external ears normal and TM's normal bilaterally Nose: Normal external nose present, normal nares present, and no nasal discharge present. Face and sinus: Sinuses nontender to palpation. Mouth: Normal oral and palatal mucosa present and moist mucous membranes noted. Throat: Tonsils normal. Uvula is midline. Posterior oropharynx with erythema and white patch noted. Tonsils absent. Neck: Normal visual inspection, full ROM. No lymphadenopathy noted. Respiratory: Wheezing noted. No rales or rhonchi noted. Normal respiratory effort, able to speak in complete sentences. No respiratory distress, not tachypneic, no tripod positioning and no use of accessory muscles. Cardiovascular: Regular rate and rhythm. Normal S1 and S2. No m/r/g noted. Skin: No rashes or lesions noted Patient was informed and verbally consented to the use of an ambient scribe for clinic note documentation during this visit [facility] Medical History Impaired fasting glucose Dyslipidemia Allergic rhinitis Normal colonoscopy Osteoarthritis Seasonal allergies COPD (chronic obstructive pulmonary disease) Surgical History History of lung surgery History of appendectomy Status post dilation and curettage History of colonoscopy History of adenoidectomy History of tonsillectomy Family History Father Colon cancer Substance use disorder Mother CVD (cardiovascular disease) Arteriosclerotic heart disease (ASHD) Mental health disorder Brother Colon polyps Substance use disorder Maternal Aunt Stomach cancer Brother Hemochromatosis Daughter No problems noted. Daughter No problems noted. Sister No problems noted. Sister No problems noted. Sister No problems noted. Sister Substance use disorder Sister Substance use disorder Sister No problems noted. Sister No problems noted. Sister No problems noted. Social History Housing: Apartment Are you a primary farm or ranch animal caretaker to a significant other at home: No Do you presently have visiting nurse or other home services: No Alcohol intake: never Patient Tobacco Use Status: Former Tobacco user Tobacco use type: Smokeless Tobacco e-Cigarette/Vaping Use: Currently Using Second Hand Smoke Exposure: Yes service: No Current occupational status: employed Cognitive needs: No Hearing needs: No Vision needs: Yes Review of Systems Const All systems reviewed & are unremarkable except as noted in HPI and below Physical Exam Vital Signs: Last Vital Signs Temp 98.3 F 04/04/25 08:16 Pulse 84 04/04/25 08:16 BP 128/58 L 04/04/25 08:16 Pulse Ox 97 04/04/25 08:16 Oxygen Delivery Method Room Air 04/04/25 08:16 BMI result Body Mass Index 29.1 Results AMB Rapid Strep AMB Rapid Strep Negative Last Edit by Ryan Bella CMA on 04/04/25 08 :38 Results Reviewed Results Reviewed: Laboratory Last Values Strep Scn Rapid Clinic Negative 04/04/25 08:37 Assessment & Plan Assessment & Plan (1) Sore throat: Code(s): J02.9 - Acute pharyngitis, unspecified Plan: Most likely thrush Rapid strep was negative in the office today Plan - Nystatin swish and swallow for 7days - Diet as tolerated - Rinse mouth after each use of the inhaler. (2) Cough: Code(s): R05.9 - Cough, unspecified Qualifiers: Cough type: acute Qualified Code(s): R05.1 - Acute cough Plan Most likely URI vs bronchitis Plan - Tylenol or motrin as needed - continue with the inhaler and nebulizer - z-miguel as directed - prednisone burst for 5 days - follow up with PCP Orders: Orders AMB Rapid Strep Screen Today Z13.9 - Encounter for screening, unspecified Medications: New azithromycin For 250 mg dose pack: take 500 mg today (day 1), then 250 mg for 4 days (days 2-5) PO 6 tabs 0RF prednisone 40 mg (2 x 20 mg) PO DAILY 10 tabs 0RF 5 days nystatin administer 1/2 of dose in each side of the mouth 5 mL buccal qid 140 mL 0RF 7 days Coding Level of Care Code Est Pt Level 4 (17793) Diagnoses Sore throat J02.9 Acute cough R05.1 Cough type: acute
== END 2025-04-04 09:31 | disposition home or self-care (01) ==
PROVIDERS: PCP Internal Medicine; Visit Provider Physician Assistant Medical
DX: J02.9 Acute pharyngitis, unspecified (principal); R05.1 Acute cough; Z13.9 Encounter for screening, unspecified

== ENCOUNTER → 2025-04-04 08:03 | Outpatient (BNVA) | payer MEDICARE, SELFPAY | PROVIDERS: PCP Internal Medicine; Visit Provider Physician Assistant Medical | DX: J02.9 Acute pharyngitis, unspecified (principal); R05.1 Acute cough | CPT/HCPCS: 87880; 99212 ==

== ENCOUNTER 2025-04-26 09:47 | Outpatient (REF) | payer MEDICARE, SELFPAY ==
[2025-04-26 07:49] VITALS: PULSE 80; O2SAT 96
--- OUTSIDE RECORDS SUMMARY | 2025-04-26 10:22 | XMS_ITS | Patient Health Record ---
Author Organization [facility] Address [address] [place] [address] Care Team Providers Care Director Of Student Life Name Role Phone Puma MARIN, Anali Primary [...] Problem Status W/U Status Risk Notes Problem [id number] Colon cancer screening (Z12.11) Active confirmed Problem 10175785 Encounter for other preprocedural examination (Z01.818) Active confirmed Plan Of Treatment Future Test Test Name Order Date COLONOSCOPY 08/22/2015 COLONOSCOPY 03/13/2021 Insurance Providers Payer Name Payer Address Payer Phone Subscriber Number Group Number Insured Name Patient Relationship to Insured Coverage Start Date Coverage End Date [employer] [address] [place] [address] [phone] [id number] ABIODUN ESCOBAR Self - patient is the insured MED[employer] ATT[employer] CLAIMS [address] [place] [address] [id number] ABIODUN ESCOBAR Self - patient is the insured Medical (General) History Medical History History ICD Code colonoscopy 12/07/15, five-year followup hyperplastic colon polyps hemorrhoids anxiety COPD hypertension Surgical History Surgery Date(Month/Year) appendectomy tonsillectomy lung surgery due to collapsed lung adenoidectomy
--- OUTSIDE RECORDS SUMMARY | 2025-04-26 10:22 | XMS_ITS | Patient Health Record ---
Author Organization [facility] [place] Address [address] [place] [address] Care Team Providers Care House Steward/Stewardess Name Role Phone Puma MARIN, Anali Omalley Primary Care Provider Un available Black, Jena Unavailable [phone] Reason For Referral No Information Medications Medication [...] W/U Status Risk Notes Problem Verruca plantaris (67743720) Verruca Plantaris (078.19) Active confirmed Problem Pain in limb (67000035) Pain in Limb (729.5) Active confirmed Plan Of Treatment Pending Test Test Name Order Date 63730-Oaqa Destruction, 10-1810/18/2012 44199-Zqps Destruction, 10-1811/18/2012 87264-Znxz Destruction, 10-1806/13/2013 87649-Vkht Destruction, 10-1807/14/2013 14521-Duhu Destruction, 10-1808/19/2013 02661-Lzov Destruction, 10-1809/07/2013 83970- Debride <25 sq cm 11/09/2013 39275- Debride <25 sq cm 03/01/2014 97114- Debride <25 sq cm 04/10/2014 38031 I&D ABSCESS- SIMPLE,SINGLE 013 93897- Biopsy of skin lesion 10/27/2013 Insurance Providers Payer Name Payer Address Payer Phone Subscriber Number Group Number Insured Name Patient Relationship to Insured Coverage Start Date Coverage End Date [facility] [address] [address] [place] [address] [id number] Vanessa Prieto Self - patient is the insured Medical (General) History Medical History History ICD Code measles mumps chicken pox Surgical History Surgery Date(Month/Year) appendectomy 1958 lung surgery 1972 tonsillectomy and adenoidectomy 1958
--- NOTE | 2025-04-26 13:40 | PFT_ITS ---
Flows: FEV1: 80 % of predicted at 1.76 L FVC: 105 % of predicted at 3.00 L FEV1/FVC: 59 % Bronchodilator response: Present Volumes: Total lung capacity: 116 % of predicted at 5.96 L Residual volume: 155 % of predicted at 3.22 L Slow vital capacity: 92 % of predicted at 2.75 L Expiratory reserve volume: 59 % of predicted at 0.43 L Diffusion capacity: Mildly decreased. Impression: Ppsu-tz-qwloufzv obstructive ventilatory defect with positive bronchodilator response. Increased residual volume suggests air trapping. Decreased expiratory reserve volume suggests extrathoracic restriction likely secondary to abdominal obesity. Decreased diffusion capacity suggests emphysema. MTDD
== END 2025-04-26 09:48 | disposition home or self-care (01) ==
LOC: HO.RESP 09:47
PROVIDERS: PCP Internal Medicine; Visit Provider Nurse Practitioner Family
DX: J44.1 Chronic obstructive pulmonary disease with (acute) exacerbation (principal); F17.200 Nicotine dependence, unspecified, uncomplicated
CPT/HCPCS: 94010; 94640; 94727; 94729

== ENCOUNTER → 2025-04-26 13:40 | Outpatient (BNV) | payer MEDICARE, MEDICAID, SELFPAY | PROVIDERS: PCP Internal Medicine; Visit Provider Internal Medicine Pulmonary Disease | DX: J44.9 Chronic obstructive pulmonary disease, unspecified (principal) | CPT/HCPCS: 94060; 94727; 94729 ==

== ENCOUNTER 2025-05-08 10:41 | Outpatient (AMB) | payer MEDICARE, MEDICAID, SELFPAY ==
--- NOTE | 2025-05-08 10:46 | A.OFFVIS_ITS ---
Vital Signs 05/08/25 10:49 Height 5 ft 5 in Weight 175 lb BMI 29.1 BP 170/89 H Blood Pressure Location Rt brachial Position Sitting Respiration 20 Pulse 71 Pulse Source Pulse Oximeter Pulse Oximetry (%) 95 Oxygen Delivery Method Room Air Intake Visit Reasons: COPD Aircraft Maintenance Supervisor Required: No Allergies barium sulfate Allergy (Unknown, Verified 05/08/25 10:49) couldn't put head down or would pass out loratadine (Claritin) Allergy (Unknown, Verified 05/08/25 10:49) heebie jeebies like going to jump out of skin varenicline (From Chantix) Allergy (Unknown, Verified 05/08/25 10:49) couldnt put head down or would pass out tiotropium (Spiriva with HandiHaler) Adverse Reaction (Unknown, Verified 05/08/25 10:49) coughing fits fluticasone furoate (From Arnuity Ellipta) Adverse Reaction (Verified 05/08/25 10:49) dizziness HPI HPI COPD: Details: Vanessa is a pleasant 74-year-old female, former 25+ pack year smoker, quit 2022 with underlying COPD and allergic rhinitis. At baseline patient has been moderately controlled on Arnuity 200mcg, requiring albuterol MDI and DuoNeb once daily, reporting significant improvements in dyspnea overall. She has previously been unable to tolerate Breo, Dulera and QVAR due to dizziness/tachycardia. Since the last visit, she was treated for thrush as well as bronchitic symptoms with azithromycin and prednisone with near complete resolution of symptoms. She continues to report intermittent cough and wheezing. Recent CXR unremarkable. Today she presents to review PFT results. [facility] Medical History Impaired fasting glucose Dyslipidemia Allergic rhinitis Normal colonoscopy Osteoarthritis Seasonal allergies COPD (chronic obstructive pulmonary disease) Surgical History History of lung surgery History of appendectomy Status post dilation and curettage History of colonoscopy History of adenoidectomy History of tonsillectomy Family History Father Colon cancer Substance use disorder Mother CVD (cardiovascular disease) Arteriosclerotic heart disease (ASHD) Mental health disorder Brother Colon polyps Substance use disorder Maternal Aunt Stomach cancer Brother Hemochromatosis Daughter No problems noted. Daughter No problems noted. Sister No problems noted. Sister No problems noted. Sister No problems noted. Sister Substance use disorder Sister Substance use disorder Sister No problems noted. Sister No problems noted. Sister No problems noted. Social History Housing: Apartment Are you a primary rn homecare to a significant other at home: No Do you presently have visiting nurse or other home services: No Alcohol intake: never Patient Tobacco Use Status: Former Tobacco user Tobacco use type: Smokeless Tobacco e-Cigarette/Vaping Use: Currently Using Second Hand Smoke Exposure: Yes service: No Current occupational status: employed Cognitive needs: No Hearing needs: No Vision needs: Yes Review of Systems Const Denies chills, Denies excessive sweating, Denies fever(s), Denies headache(s) and Denies night sweats Eyes Denies dry eyes, Denies irritation and Denies itchy eyes ENT Reports Normal hearing present, Denies headache(s), Denies nasal congestion, Denies nasal discharge, Denies post nasal drip and Denies sore throat Card Denies chest pain, Denies chest pain at rest, Denies chest pain with activity, Denies claudication, Denies leg edema, Denies orthopnea and Denies paroxysmal nocturnal dyspnea Resp Denies excessive phlegm production, Denies pain on inspiration, Denies pain with cough and Denies stridor Musc Denies myalgias Neuro Reports Normal hearing present and Denies headache(s) Endo Denies excessive sweating Christiano/Lymph Denies lymphadenopathy Aller/Immun Denies itchy eyes and Denies seasonal rhinorrhea Physical Exam Vital Signs: Last Vital Signs Pulse 71 05/08/25 10:49 Resp 20 05/08/25 10:49 BP 170/89 H 05/08/25 10:49 Pulse Ox 95 05/08/25 10:49 Oxygen Delivery Method Room Air 05/08/25 10:49 BMI result Body Mass Index 29.1 Const General: cooperative, healthy appearing, comfortable, no acute distress, well developed and alert Orientation/consciousness: patient oriented x3 Limitations: no limitations HEENT Head: Yes normal to inspection, Yes normocephalic and Yes atraumatic Ears: hearing grossly normal bilaterally and external ears normal Eyes General: appearance normal, both eyes and all related structures Eyelids: Yes eyelids normal Sclerae: sclerae normal EOM: EOMs intact bilaterally Neck Neck: Yes normal visual inspection and Yes no lymphadenopathy Lymphatic: no lymphadenopathy noted Chest Chest palpation & inspection: normal inspection of the chest Resp Effort & Inspection: normal respiratory effort, able to speak in complete sentences, no audible wheezes, no cough, no stridor, not tachypneic, no tripod positioning and no use of accessory muscles Auscultation: diminished lung sounds Cardio Jugular venous distension: no JVD Rate: regular rate Rhythm: regular rhythm Skin Other: warm, dry General skin exam: no rashes or lesions noted Neuro General: patient oriented x3 Cranial nerves: Yes Normal hearing present Cognition (Neuro): normal cognition Gait exam (Neuro): Normal gait present Extrem General: Yes normal to inspection, Yes capillary refill normal, Yes no clubbing, cyanosis or edema and Yes no pedal edema Psych Appearance: grossly normal and well kempt Speech and movement: Normal speech and movement present and Clear speech present Affect: normal affect Attitude: cooperative Thought process: Normal thought process present Thought content: Normal thought content present Insight: Good insight present (Psych) Judgement: Good judgement present (Psych) Assessment & Plan Assessment & Plan (1) COPD (chronic obstructive pulmonary disease): Code(s): J44.9 - Chronic obstructive pulmonary disease, unspecified Category: Medical Qualifiers: COPD type: COPD with acute exacerbation Qualified Code(s): J44.1 - Chronic obstructive pulmonary disease with (acute) exacerbation (2) Seasonal allergies: Code(s): J30.2 - Other seasonal allergic rhinitis Category: Medical (3) Personal history of tobacco use: Code(s): Z87.891 - Personal history of nicotine dependence Category: Social Hx Plan Vanessa reports good control of respiratory symptoms using Arnuity 200 mcg and albuterol/DuoNeb PRN. Reviewed PFT which revealed grdb-ij-fbdzcucy obstructive ventilatory defect with positive bronchodilator response. Increased residual volume suggests air trapping. Decreased expiratory reserve volume suggests extrathoracic restriction likely secondary to abdominal obesity. Decreased diffusion capacity suggests emphysema. She had prior CTA 09/23/2024 which was unremarkable, other than mild emphysematous changes. Discussed lung screening program however patient continues to defer repeat imaging at this time. All questions were answered and patient is in agreement of plan. Will follow-up in 3 months or sooner if needed. Coding Level of Care Code Est Pt Level 4 (23199) Diagnoses Chronic obstructive pulmonary disease with acute exacerbation J44.1 COPD type: COPD with acute exacerbation Seasonal allergies J30.2 Personal history of tobacco use Z87.891
[2025-05-08 10:49] VITALS: BP 170/89; PULSE 71; RESP 20; O2SAT 95; BMI 29.1
--- OUTSIDE RECORDS SUMMARY | 2025-05-08 11:31 | XMS_ITS | Patient Health Record ---
Author Organization [facility] brand[facility] [place] Address [address] [place] [address] Care Team Providers Care Cyber Systems Administrator Name Role Phone Puma MARIN, Anali Omalley Primary Care Provider Un available Black, Jena Unavailable [phone] Reason For Referral No Information Medications Medication [...] W/U Status Risk Notes Problem Verruca plantaris (95396816) Verruca Plantaris (078.19) Active confirmed Problem Pain in limb (91071020) Pain in Limb (729.5) Active confirmed Plan Of Treatment Pending Test Test Name Order Date 06987-Czyb Destruction, 10-1810/18/2012 61425-Wbxt Destruction, 10-1811/18/2012 63952-Tklm Destruction, 10-1806/13/2013 77075-Cdpm Destruction, 10-1807/14/2013 77343-Hhfd Destruction, 10-1808/19/2013 50090-Urqf Destruction, 10-1809/07/2013 30204- Debride <25 sq cm 11/09/2013 32109- Debride <25 sq cm 03/01/2014 89362- Debride <25 sq cm 04/10/2014 64215 I&D ABSCESS- SIMPLE,SINGLE 013 95632- Biopsy of skin lesion 10/27/2013 Insurance Providers Payer Name Payer Address Payer Phone Subscriber Number Group Number Insured Name Patient Relationship to Insured Coverage Start Date Coverage End Date [facility] [address] [place] [address] [id number] Vanessa Prieto Self - patient is the insured Medical (General) History Medical History History ICD Code measles mumps chicken pox Surgical History Surgery Date(Month/Year) appendectomy 1958 lung surgery 1972 tonsillectomy and adenoidectomy 1958
--- OUTSIDE RECORDS SUMMARY | 2025-05-08 11:31 | XMS_ITS | Patient Health Record ---
Author Organization [facility] Address [address] [place] [address] Care Team Providers Care Cementer Machine Name Role Phone Puma MARIN, Anali Primary Care Provider Brent Logan Jr Unavailable [phone] Allergies Allergen (clinical drug ingredient) Drug/Non Drug [...] Problem Status W/U Status Risk Notes Problem [id number] Colon cancer screening (Z12.11) Active confirmed Problem 34767045 Encounter for other preprocedural examination (Z01.818) Active confirmed Plan Of Treatment Future Test Test Name Order Date COLONOSCOPY 08/22/2015 COLONOSCOPY 03/13/2021 Insurance Providers Payer Name Payer Address Payer Phone Subscriber Number Group Number Insured Name Patient Relationship to Insured Coverage Start Date Coverage End Date [employer] OF [employer] [address] [place] [address] [id number] ABIODUN ESCOBAR Self - patient is the insured [employer] ATT[employer] CLAIMS [address] [place] [address] [id number] ABIODUN ESCOBAR Self - patient is the insured Medical (General) History Medical History History ICD Code colonoscopy 12/07/15, five-year followup hyperplastic colon polyps hemorrhoids anxiety COPD hypertension Surgical History Surgery Date(Month/Year) appendectomy tonsillectomy lung surgery due to collapsed lung adenoidectomy
== END 2025-05-08 11:08 | disposition home or self-care (01) ==
LOC: HO.HPS 10:42
PROVIDERS: PCP Internal Medicine; Visit Provider Nurse Practitioner Family
DX: J44.1 Chronic obstructive pulmonary disease with (acute) exacerbation (principal); J30.2 Other seasonal allergic rhinitis; Z87.891 Personal history of nicotine dependence
CPT/HCPCS: 99214

== ENCOUNTER → 2025-05-08 10:41 | Outpatient (BNVA) | payer MEDICARE, MEDICAID, SELFPAY | PROVIDERS: PCP Internal Medicine; Visit Provider Nurse Practitioner Family | DX: J44.1 Chronic obstructive pulmonary disease with (acute) exacerbation (principal); J30.2 Other seasonal allergic rhinitis; Z87.891 Personal history of nicotine dependence | CPT/HCPCS: 99212 ==

== ENCOUNTER 2025-06-19 07:47 | Outpatient (REF) | payer MEDICARE, MEDICAID, SELFPAY ==
--- NOTE | ~2025-06-19 | MM_ITS ---
EXAMINATION: MM SCREENING DIGITAL BREAST TOMOSYNTHESIS, BILATERAL CLINICAL INFORMATION: Screening. Asymptomatic. COMPARISON: Mammography: Comparison is made with available priors TECHNIQUE: Digital breast mammography with tomosynthesis is performed in both the craniocaudal and mediolateral oblique views along with computer-aided detection (CAD). FINDINGS: There are scattered areas of fibroglandular density (ACR BI-RADS breast composition Category b). There are no significant masses, abnormal calcifications, or other abnormalities. MM/MM tomosynthesis screening BI IMPRESSION: No mammographic evidence of malignancy. ASSESSMENT: BI-RADS BI-RADS 1 - Negative RECOMMENDATION: Routine annual mammography screening. 1 year F/U This examination should not preclude the clinical evaluation of a suspicious palpable abnormality. This patient's information was entered into a reminder system with a target due date for their next mammogram. Electronically signed by: Jennifer Almonte DO 06/20/2025 05:06 PM EDT
--- OUTSIDE RECORDS SUMMARY | 2025-06-19 07:49 | XMS_ITS | Patient Health Record ---
Author Organization [facility] Address [address] [place] [address] Care Team Providers Care Railroad Yard Worker Name Role Phone Puma MARIN, Anali Primary [...] Problem Status W/U Status Risk Notes Problem [id number] Colon cancer screening (Z12.11) Active confirmed Problem 26225139 Encounter for other preprocedural examination (Z01.818) Active confirmed Plan Of Treatment Future Test Test Name Order Date COLONOSCOPY 08/22/2015 COLONOSCOPY 03/13/2021 Insurance Providers Payer Name Payer Address Payer Phone Subscriber Number Group Number Insured Name Patient Relationship to Insured Coverage Start Date Coverage End Date [employer] OF [employer] [address] [place] [address] [id number] ABIODUN ESCOBAR Self - patient is the insured MED[employer] ATT[employer] CLAIMS [address] [place] [address] [phone] [id number] ABIODUN ESCOBAR Self - patient is the insured Medical (General) History Medical History History ICD Code colonoscopy 12/07/15, five-year followup hyperplastic colon polyps hemorrhoids anxiety COPD hypertension Surgical History Surgery Date(Month/Year) appendectomy tonsillectomy lung surgery due to collapsed lung adenoidectomy
--- OUTSIDE RECORDS SUMMARY | 2025-06-19 07:49 | XMS_ITS | Patient Health Record ---
Author Organization [facility] brandy [facility] Address [address] [address] Care Team Providers Care Physician Asst Name Role Phone Puma MARIN, Anali Omalley Primary Care Provider Un available Black, Jena Unavailable [phone] Reason For Referral No Information Medications Medication [...] W/U Status Risk Notes Problem Verruca plantaris (31024200) Verruca Plantaris (078.19) Active confirmed Problem Pain in limb (70351239) Pain in Limb (729.5) Active confirmed Plan Of Treatment Pending Test Test Name Order Date 38835-Rcqj Destruction, 10-1811/18/2012 29545-Zdqj Destruction, 10-1808/19/2013 04237-Zrqt Destruction, 10-1809/07/2013 67173-Ubef Destruction, 10-1807/14/2013 77420-Avfl Destruction, 10-1806/13/2013 58806-Qcve Destruction, 10-1810/18/2012 08473- Debride <25 sq cm 03/01/2014 43457- Debride <25 sq cm 04/10/2014 32929- Debride <25 sq cm 11/09/2013 67739 I&D ABSCESS- SIMPLE,SINGLE 013 03164- Biopsy of skin lesion 10/27/2013 Insurance Providers Payer Name Payer Address Payer Phone Subscriber Number Group Number Insured Name Patient Relationship to Insured Coverage Start Date Coverage End Date [facility] [address] [place] [phone] [id number] Vanessa Prieto Self - patient is the insured Medical (General) History Medical History History ICD Code measles mumps chicken pox Surgical History Surgery Date(Month/Year) appendectomy 1958 lung surgery 1972 tonsillectomy and adenoidectomy 1958
== END 2025-06-19 07:48 | disposition home or self-care (01) ==
LOC: HO.MAMMO 07:47
PROVIDERS: PCP Internal Medicine; Visit Provider Internal Medicine
DX: Z12.31 Encounter for screening mammogram for malignant neoplasm of breast (principal)
CPT/HCPCS: 77063; 77067

== ENCOUNTER → 2025-06-19 08:00 | Outpatient (BNV) | payer MEDICARE, MEDICAID, SELFPAY | PROVIDERS: PCP Internal Medicine; Visit Provider Internal Medicine | DX: Z12.31 Encounter for screening mammogram for malignant neoplasm of breast (principal) | CPT/HCPCS: 77063; 77067 ==

== ENCOUNTER 2025-08-07 09:46 | Outpatient (AMB) | payer MEDICARE, MEDICAID, SELFPAY ==
[2025-08-07 09:49] VITALS: BP 190/100; PULSE 98; O2SAT 97; BMI 30.1
--- NOTE | 2025-08-07 09:49 | A.OFFVIS_ITS ---
Vital Signs 08/07/25 09:49 Height 5 ft 5 in Weight 180 lb 12.465 oz BMI 30.1 BP 190/100 H Blood Pressure Location Rt brachial Position Sitting Pulse 98 Pulse Source Pulse Oximeter Pulse Oximetry (%) 97 Oxygen Delivery Method Room Air Intake Visit Reasons: COPD Allergies barium sulfate Allergy (Unknown, Verified 08/07/25 09:53) couldn't put head down or would pass out loratadine (Claritin) Allergy (Unknown, Verified 08/07/25 09:53) heebie jeebies like going to jump out of skin varenicline (From Chantix) Allergy (Unknown, Verified 08/07/25 09:53) couldnt put head down or would pass out tiotropium (Spiriva with HandiHaler) Adverse Reaction (Unknown, Verified 08/07/25 09:53) coughing fits fluticasone furoate (From Arnuity Ellipta) Adverse Reaction (Verified 08/07/25 09:53) dizziness HPI HPI COPD: Details: Vanessa is a pleasant 74-year-old female, former 25+ pack year smoker, quit 2023 with underlying COPD and allergic rhinitis. Patient previously able to tolerate Arnuity however has discontinued about three weeks ago as she felt it was contributing to ongoing dizziness. She continues to report intermittent wheezing, congestion and dyspnea. She has been using DuoNeb BID with good effect in addition to incentive spirometer. She has previously been unable to tolerate Breo, Dulera and QVAR due to dizziness/tachycardia. She denies any visits to urgent care or hospitalizations related to respiratory distress since the last visit. [facility] Medical History Impaired fasting glucose Dyslipidemia Allergic rhinitis Normal colonoscopy Osteoarthritis Seasonal allergies COPD (chronic obstructive pulmonary disease) Surgical History History of lung surgery History of appendectomy Status post dilation and curettage History of colonoscopy History of adenoidectomy History of tonsillectomy Family History Father Colon cancer Substance use disorder Mother CVD (cardiovascular disease) Arteriosclerotic heart disease (ASHD) Mental health disorder Brother Colon polyps Substance use disorder Maternal Aunt Stomach cancer Brother Hemochromatosis Daughter No problems noted. Daughter No problems noted. Sister No problems noted. Sister No problems noted. Sister No problems noted. Sister Substance use disorder Sister Substance use disorder Sister No problems noted. Sister No problems noted. Sister No problems noted. Social History Housing: Apartment Are you a primary patient care nursing assistant to a significant other at home: No Do you presently have visiting nurse or other home services: No Alcohol intake: never Patient Tobacco Use Status: Former Tobacco user Tobacco use type: Smokeless Tobacco e-Cigarette/Vaping Use: Currently Using Second Hand Smoke Exposure: Yes service: No Current occupational status: employed Cognitive needs: No Hearing needs: No Vision needs: Yes Review of Systems Const Denies chills, Denies excessive sweating, Denies fever(s), Denies headache(s) and Denies night sweats Eyes Denies dry eyes, Denies irritation and Denies itchy eyes ENT Reports Normal hearing present, Denies headache(s), Denies nasal congestion, Denies nasal discharge, Denies post nasal drip and Denies sore throat Card Denies chest pain, Denies chest pain at rest, Denies chest pain with activity, Denies claudication, Denies leg edema, Reports dyspnea on exertion, Denies orthopnea and Denies paroxysmal nocturnal dyspnea Resp Denies change in phlegm color, Reports cough, Denies hemoptysis, Denies excessive phlegm production, Denies pain on inspiration, Denies pain with cough, Reports dyspnea on exertion, Denies stridor and Reports wheezing Musc Denies myalgias Neuro Reports Normal hearing present and Denies headache(s) Endo Denies excessive sweating Christiano/Lymph Denies lymphadenopathy Aller/Immun Denies itchy eyes, Denies seasonal rhinorrhea and Reports wheezing Physical Exam Vital Signs: Last Vital Signs Pulse 98 08/07/25 09:49 BP 190/100 H 08/07/25 09:49 Pulse Ox 97 08/07/25 09:49 Oxygen Delivery Method Room Air 08/07/25 09:49 BMI result Body Mass Index 30.1 Const General: cooperative, healthy appearing, comfortable, no acute distress, well developed and alert Orientation/consciousness: patient oriented x3 Limitations: no limitations HEENT Head: Yes normal to inspection, Yes normocephalic and Yes atraumatic Ears: hearing grossly normal bilaterally and external ears normal Eyes General: appearance normal, both eyes and all related structures Eyelids: Yes eyelids normal Sclerae: sclerae normal EOM: EOMs intact bilaterally Neck Neck: Yes normal visual inspection and Yes no lymphadenopathy Lymphatic: no lymphadenopathy noted Chest Chest palpation & inspection: normal inspection of the chest Resp Effort & Inspection: normal respiratory effort, able to speak in complete sentences, no audible wheezes, no cough, no stridor, not tachypneic, no tripod positioning and no use of accessory muscles Auscultation: diminished lung sounds Cardio Jugular venous distension: no JVD Rate: regular rate Rhythm: regular rhythm Skin Other: warm, dry General skin exam: no rashes or lesions noted Neuro General: patient oriented x3 Cranial nerves: Yes Normal hearing present Cognition (Neuro): normal cognition Gait exam (Neuro): Normal gait present Extrem General: Yes normal to inspection, Yes capillary refill normal, Yes no clubbing, cyanosis or edema and Yes no pedal edema Psych Appearance: grossly normal and well kempt Speech and movement: Normal speech and movement present and Clear speech present Affect: normal affect Attitude: cooperative Thought process: Normal thought process present Thought content: Normal thought content present Insight: Good insight present (Psych) Judgement: Good judgement present (Psych) Assessment & Plan Assessment & Plan (1) COPD (chronic obstructive pulmonary disease): Code(s): J44.9 - Chronic obstructive pulmonary disease, unspecified Category: Medical Qualifiers: COPD type: COPD with acute exacerbation Qualified Code(s): J44.1 - Chronic obstructive pulmonary disease with (acute) exacerbation (2) Seasonal allergies: Code(s): J30.2 - Other seasonal allergic rhinitis Category: Medical (3) Personal history of tobacco use: Code(s): Z87.891 - Personal history of nicotine dependence Category: Social Hx Plan Vanessa reports suboptimal control with the use of DuoNeb BID and felt Arnuity was contributing to increased dizziness, however may be related to BP. Will trial Asmanex in its place and she is aware to monitor symptoms including BP. Will also send fluter valve to improve mucus clearance. CTA 09/23/2024 which was unremarkable, other than mild emphysematous changes. Discussed lung screening program however patient continues to defer repeat imaging at this time. Today BP significantly elevated 190/100 which may have been contributing to prior dizziness. Rechecked today 158/76. Encouraged patient to reach out to PCP to further discuss. She does note checking at home with more normalized pressures however still elevated. All questions were answered and patient is in agreement of plan. Will follow-up in 8-10 weeks or sooner if needed. Medications: New mometasone 100 mcg/actuation (Asmanex HFA) 1 inh inhalation BID 13 grams 3RF Coding Level of Care Code Est Pt Level 4 (01467) Diagnoses Chronic obstructive pulmonary disease with acute exacerbation J44.1 COPD type: COPD with acute exacerbation Seasonal allergies J30.2 Personal history of tobacco use Z87.898
--- OUTSIDE RECORDS SUMMARY | 2025-08-07 11:16 | XMS_ITS | Patient Health Record ---
Author Organization [facility] Address [address] [place] [address] Care Team Providers Care Social Media Intern Name Role Phone Puma MARIN, Anali Primary Care Provider Steffi James Jr, Brent Unavailable [phone] Allergies Allergen (clinical drug ingredient) Drug/Non Drug [...] at 5:00 p.m. the day before the procedure; Duration: 1 day 03/13/2021 Active ZyrTEC Allergy 10 [...] Problem Status W/U Status Risk Notes Problem Colon cancer screening (164016704) Colon cancer screening (Z12.11) Active confirmed Problem Pre-procedure evaluation check (381497531) Encounter for other preprocedural examination (Z01.818) Active confirmed Plan Of Treatment Future Test Test Name Order Date COLONOSCOPY 08/22/2015 COLONOSCOPY 03/13/2021 Insurance Providers Payer Name Payer Address Payer Phone Subscriber Number Group Number Insured Name Patient Relationship to Insured Coverage Start Date Coverage End Date MEDICARE OF [place] [address] [place] [id number] ABIODUN ESCOBAR Self - patient is the insured MEDEX ATTN CLAIMS [address] [place] [address] [id number] ABIODUN ESCOBAR Self - patient is the insured Medical (General) History Medical History History ICD Code colonoscopy 12/07/15, five-year followup hyperplastic colon polyps hemorrhoids anxiety COPD hypertension Surgical History Surgery Date(Month/Year) appendectomy tonsillectomy lung surgery due to collapsed lung adenoidectomy
--- OUTSIDE RECORDS SUMMARY | 2025-08-07 11:16 | XMS_ITS | Patient Health Record ---
Author Organization [facility] [place] Address [address] [place] [address] Care Team Providers Care Front End Java Developer Name Role Phone Puma MARIN, Anali Omalley Primary Care Provider Un available Black, Jena Unavailable [phone] Reason For Referral No Information Medications Medication [...] W/U Status Risk Notes Problem Verruca plantaris (71654130) Verruca Plantaris (078.19) Active confirmed Problem Pain in limb (42989356) Pain in Limb (729.5) Active confirmed Plan Of Treatment Pending Test Test Name Order Date [id number]-Iiyi Destruction, 10-1810/18/2012 72866-Pygd Destruction, 10-1811/18/2012 72199-Fbsk Destruction, 10-1806/13/2013 12008-Hwas Destruction, 10-1807/14/2013 78399-Ntvk Destruction, 10-1808/19/2013 72130-Aybe Destruction, 10-1809/07/2013 62342- Debride <25 sq cm 11/09/2013 72830- Debride <25 sq cm 03/01/2014 22877- Debride <25 sq cm 04/10/2014 65929 I&D ABSCESS- SIMPLE,SINGLE 013 73599- Biopsy of skin lesion 10/27/2013 Insurance Providers Payer Name Payer Address Payer Phone Subscriber Number Group Number Insured Name Patient Relationship to Insured Coverage Start Date Coverage End Date [facility] [address] [place] [id number] Vanessa Prieto Self - patient is the insured Medical (General) History Medical History History ICD Code measles mumps chicken pox Surgical History Surgery Date(Month/Year) appendectomy 1958 lung surgery 1972 tonsillectomy and adenoidectomy 1958
== END 2025-08-07 10:25 | disposition home or self-care (01) ==
LOC: HO.HPS 09:47
PROVIDERS: PCP Internal Medicine; Visit Provider Nurse Practitioner Family
DX: J44.1 Chronic obstructive pulmonary disease with (acute) exacerbation (principal); J30.2 Other seasonal allergic rhinitis; Z87.891 Personal history of nicotine dependence
CPT/HCPCS: 99214

== ENCOUNTER → 2025-08-07 09:46 | Outpatient (BNVA) | payer MEDICARE, MEDICAID, SELFPAY | PROVIDERS: PCP Internal Medicine; Visit Provider Nurse Practitioner Family | DX: J44.1 Chronic obstructive pulmonary disease with (acute) exacerbation (principal); J30.2 Other seasonal allergic rhinitis; Z87.891 Personal history of nicotine dependence | CPT/HCPCS: 99212 ==

== ENCOUNTER → 2025-08-17 08:50 | Outpatient (BNVA) | payer MEDICARE, MEDICAID, SELFPAY | PROVIDERS: PCP Internal Medicine | DX: Z01.30 Encounter for examination of blood pressure without abnormal findings (principal); U07.0 Vaping-related disorder; R06.09 Other forms of dyspnea; Z77.22 Contact with and (suspected) exposure to environmental tobacco smoke (acute) (chronic); Z87.891 Personal history of nicotine dependence | CPT/HCPCS: 99211 ==

== ENCOUNTER → 2025-09-07 08:55 | Outpatient (BNVA) | payer MEDICARE, MEDICAID, SELFPAY | PROVIDERS: PCP Internal Medicine | DX: I10 Essential (primary) hypertension (principal) | CPT/HCPCS: 99211 ==

== ENCOUNTER 2025-10-02 08:47 | Outpatient (AMB) | payer MEDICARE, MEDICAID, SELFPAY ==
--- NOTE | 2025-10-02 08:53 | MHC.OFFVIS ---
Vital Signs 10/02/25 08:55 Height 5 ft 5 in Weight 180 lb 12.465 oz BMI 30.1 BP 140/70 H Blood Pressure Location Lt brachial Position Sitting Pulse 93 Pulse Source Pulse Oximeter Pulse Oximetry (%) 96 Oxygen Delivery Method Room Air Intake Visit Reasons: COPD Protection Engineer Required: No Capacitor Inspector: Capacitor Inspector offered & declined Allergies barium sulfate Allergy (Unknown, Verified 10/02/25 08:58) couldn't put head down or would pass out loratadine (Claritin) Allergy (Unknown, Verified 10/02/25 08:58) heebie jeebies like going to jump out of skin varenicline (From Chantix) Allergy (Unknown, Verified 10/02/25 08:58) couldnt put head down or would pass out tiotropium (Spiriva with HandiHaler) Adverse Reaction (Unknown, Verified 10/02/25 08:58) coughing fits fluticasone furoate (From Arnuity Ellipta) Adverse Reaction (Verified 10/02/25 08:58) dizziness HPI Comments Details: Vanessa is a pleasant 74-year-old female, former 25+ pack year smoker, quit 2023 with underlying COPD and allergic rhinitis. She reports having good and bad days with her breathing, noting that the day prior to the visit was a bad day with significant chest congestion and a productive cough yielding whitish, clear sputum. She experiences dyspnea on exertion, especially when rushing or ascending stairs, but denies wheezing or chest tightness. The patient uses a nebulizer twice daily, which provides relief. Past prescribed inhalers (Alvesco, Asmanex) were rejected by her insurance. She has a history of side effects with Breo, Dulera and QVAR , including dizziness, feeling as if she was going to pass out, and heart racing. She stopped Arnuity about a month and a half ago due to persistent dizziness, also noting three episodes of oral thrush despite rinsing her mouth. She denies any visits to urgent care or hospitalizations related to respiratory symptoms since the visit. [facility] Medical History (Updated 09/27/25 @ 02:01 by Anali Bartholomew MD) Essential hypertension Impaired fasting glucose Dyslipidemia Allergic rhinitis Normal colonoscopy Osteoarthritis Seasonal allergies COPD (chronic obstructive pulmonary disease) Surgical History History of lung surgery History of appendectomy Status post dilation and curettage History of colonoscopy History of adenoidectomy History of tonsillectomy Family History Father Colon cancer Substance use disorder Mother CVD (cardiovascular disease) Arteriosclerotic heart disease (ASHD) Mental health disorder Brother Colon polyps Substance use disorder Maternal Aunt Stomach cancer Brother Hemochromatosis Daughter No problems noted. Daughter No problems noted. Sister No problems noted. Sister No problems noted. Sister No problems noted. Sister Substance use disorder Sister Substance use disorder Sister No problems noted. Sister No problems noted. Sister No problems noted. Social History (Reviewed 10/02/25 @ 08:59 by Marilou Dawkins [facility]) Housing: Apartment Are you a primary outdoor emergency care technician to a significant other at home: No Do you presently have visiting nurse or other home services: No Alcohol intake: never Patient Tobacco Use Status: Former Tobacco user Tobacco use type: Smokeless Tobacco e-Cigarette/Vaping Use: Currently Using Second Hand Smoke Exposure: Yes service: No Current occupational status: employed Cognitive needs: No Hearing needs: No Vision needs: Yes Review of Systems Narrative Const Denies chills, Denies excessive sweating, Denies fever(s), Denies headache(s) and Denies night sweats Eyes Denies dry eyes, Denies irritation and Denies itchy eyes ENT Reports Normal hearing present, Denies headache(s), Denies nasal congestion, Denies nasal discharge, Denies post nasal drip and Denies sore throat Card Denies chest pain, Denies chest pain at rest, Denies chest pain with activity, Denies claudication, Denies leg edema, Reports dyspnea on exertion, Denies orthopnea and Denies paroxysmal nocturnal dyspnea Resp Denies change in phlegm color, Reports cough, Denies hemoptysis, Denies excessive phlegm production, Denies pain on inspiration, Denies pain with cough, Reports dyspnea on exertion, Denies stridor and Denies wheezing Musc Denies myalgias Neuro Reports Normal hearing present and Denies headache(s) Endo Denies excessive sweating Christiano/Lymph Denies lymphadenopathy Aller/Immun Denies itchy eyes, Denies seasonal rhinorrhea and Denies wheezing Physical Exam Exam Exam: Vital Signs: Last Vital Signs Pulse 93 10/02/25 08:55 BP 140/70 H 10/02/25 08:55 Pulse Ox 96 10/02/25 08:55 Oxygen Delivery Method Room Air 10/02/25 08:55 BMI result Body Mass Index 30.1 Const General: cooperative, healthy appearing, comfortable, no acute distress, well developed and alert Orientation/consciousness: patient oriented x3 Limitations: no limitations HEENT Head: Yes normal to inspection, Yes normocephalic and Yes atraumatic Ears: hearing grossly normal bilaterally and external ears normal Eyes General: appearance normal, both eyes and all related structures Eyelids: Yes eyelids normal Sclerae: sclerae normal EOM: EOMs intact bilaterally Neck Neck: Yes normal visual inspection and Yes no lymphadenopathy Lymphatic: no lymphadenopathy noted Chest Chest palpation & inspection: normal inspection of the chest Resp Effort & Inspection: normal respiratory effort, able to speak in complete sentences, no audible wheezes, no cough, no stridor, not tachypneic, no tripod positioning and no use of accessory muscles Auscultation: diminished lung sounds Cardio Jugular venous distension: no JVD Rate: regular rate Rhythm: regular rhythm Skin Other: warm, dry General skin exam: no rashes or lesions noted Neuro General: patient oriented x3 Cranial nerves: Yes Normal hearing present Cognition (Neuro): normal cognition Gait exam (Neuro): Normal gait present Extrem General: Yes normal to inspection, Yes capillary refill normal, Yes no clubbing, cyanosis or edema and Yes no pedal edema Psych Appearance: grossly normal and well kempt Speech and movement: Normal speech and movement present and Clear speech present Affect: normal affect Attitude: cooperative Thought process: Normal thought process present Thought content: Normal thought content present Insight: Good insight present (Psych) Judgement: Good judgement present (Psych) Assessment & Plan Assessment & Plan (1) COPD (chronic obstructive pulmonary disease): Code(s): J44.9 - Chronic obstructive pulmonary disease, unspecified Category: Medical Qualifiers: COPD type: COPD with acute exacerbation Qualified Code(s): J44.1 - Chronic obstructive pulmonary disease with (acute) exacerbation (2) Seasonal allergies: Code(s): J30.2 - Other seasonal allergic rhinitis Category: Medical (3) Personal history of tobacco use: Code(s): Z87.891 - Personal history of nicotine dependence Category: Social Hx Plan Given her prior PFTs suggesting an asthmatic component, a Flovent inhaler will be added at two puffs twice daily. Due to a history of oral thrush with a previous inhaled corticosteroid, she was counseled to rinse her mouth, brush her teeth, or gargle with salt water after each use. Reinforced the importance of airway clearance and provided instructions for a flutter valve. The prescription for Flovent will be resent to the pharmacy, and the patient is to call the office if she has any issues obtaining it or if symptoms worsen. The patient has a significant smoking history of over 20 years and quit within the last 15 years. Annual low-dose CT screening for lung cancer was discussed as a result. The patient declined this screening at this time. Discussed the recommendation for an annual low-dose CT scan for lung cancer screening due to her smoking history; she understood but declined at this time. Advised her to call if she cannot get the inhaler, or if she experiences worsening congestion or develops a productive cough with discolored sputum. We will plan to follow up in three months, or sooner if needed. All questions were answered and patient is in agreement of plan. Patient Instructions - Continue using your nebulizer twice a day as prescribed. - A new inhaler, Flovent, has been prescribed. Use two puffs in the morning and two puffs in the evening. - To prevent a mouth infection (thrush) from the Flovent inhaler, make sure to rinse your mouth with water after each use. You can also brush your teeth or gargle with salt water. - After using your nebulizer, use the flutter valve device to help clear your lungs. Blow into the device three times, then cough forcefully three times. - Continue to use your albuterol rescue pump as needed. - Please call our office if you are not able to get the Flovent inhaler from the pharmacy. - Call us if your congestion gets worse, or if you start coughing up yellow, green, or brown mucus. - We will plan to see you back in three months, but please call us sooner if you need to. Patient was informed and verbally consented to the use of an ambient scribe for clinic note documentation during this visit. Medications: Refilled fluticasone propionate 110 mcg/actuation administer with spacer 2 puffs inhalation BID 12 grams 3RF albuterol sulfate 90 mcg/actuation 2 puffs inhalation Q4-6H PRN 8.5 grams 2RF Wheezing Coding Level of Care Code Est Pt Level 4 (44144) Diagnoses Chronic obstructive pulmonary disease with acute exacerbation J44.1 COPD type: COPD with acute exacerbation Seasonal allergies J30.2 Personal history of tobacco use Z87.891
--- OUTSIDE RECORDS SUMMARY | 2025-10-02 08:53 | XMS_ITS | Patient Health Record ---
Author Organization [facility] Address [address] [place] [address] Care Team Providers Care Children Teacher Name Role Phone Puma MARIN, Anali Primary Care Provider Brent Logan Jr Unavailable [phone] Allergies Allergen (clinical drug ingredient) Drug/Non [...] day 03/13/2021 Active ZyrTEC Allergy 10 MG Tablet 1 tablet as needed Orally Once a day PRN Active LORazepam 0.5 MG Tablet 1 tablet as need ed Orally PRN PRN Active Calcium + D Active Tylenol Active Ventolin HFA Active Multivitamin Active Immunizations Vaccine Route Administration Date Status Comme nts Influenza Unknown 07/18/2020 Administered Social History Social History Additional Details Category Social Info Options Details Miscellaneous: Marital status: Occupation: semi retired-[employer] Problems Problem Type SNOMED Code ICD Code Onset Dates Problem Status W/U Status Risk Notes Problem Colon cancer screening (672123668) Colon cancer screening (Z12.11) Active confirmed Problem Pre-procedure evaluation check (337445988) Encounter for other preprocedural examination (Z01.818) Active confirmed Plan Of Treatment Future Test Test Name Order Date COLONOSCOPY 08/22/2015 COLONOSCOPY 03/13/2021 Insurance Providers Payer Name Payer Address Payer Phone Subscriber Number Group Number Insured Name Patient Relationship to Insured Coverage Start Date Coverage End Date MEDICARE OF [place] [address] [place] [address] [id number] ABIODUN ESCOBAR Self - patient is the insured MEDEX ATTN CLAIMS [address] [place] [address] [id number] ABIODUN ESCOBAR Self - patient is the insured Medical (General) History Medical History History ICD Code colonoscopy 12/07/15, five-year followup hyperplastic colon polyps hemorrhoids anxiety COPD hypertension Surgical History Surgery Date(Month/Year) appendectomy tonsillectomy lung surgery due to collapsed lung adenoidectomy
--- OUTSIDE RECORDS SUMMARY | 2025-10-02 08:53 | XMS_ITS ---
Author Organization Unknown ENCOUNTERS Encounter Performer Location Date Diagnosis Diagnosis Status Emergency [facility] [address] [place] [address] [id number] [place] Pre Admit Generic ED Physician [facility] [address] [place] [address] [id number] Emergency [facility] [address] [place] [address] [id number] [place] Pre Admit Generic ED Physician [facility] [address] [place] [address] [id number] Emergency [facility] [address] [place] [address] [id number] [place] Pre Admit Generic ED Physician [facility] [address] [place] [address] [id number] Pre Admit [facility] [address] [place] [address] [id number] Outpatient [facility] [address] [place] [address] [id number] [place] *Note: Encounters from your own facility or health system may be excluded. Allergies, Adverse Reactions, Alerts Allergen Type Severity Identification Date varenicline drug allergy 15672837 loratadine drug allergy 91394093 tiotropium drug allergy 11354002 azithromycin drug allergy 46211633 fluticasone furoate drug allergy 3 93867158 barium sulfate drug allergy 69569504 Medications Name Date Quantity Days Supplied GPI Number
--- OUTSIDE RECORDS SUMMARY | 2025-10-02 08:53 | XMS_ITS | Patient Health Record ---
Author Organization [facility] Lucia brandy [facility] Address [address] [place] [address] Care Team Providers Care Activities Counselor Name Role Phone Puma MARIN, Anali Omalley Primary Care Provider Un available Black, Jena Unavailable [phone] Reason For Referral No Information Medications Medication [...] W/U Status Risk Notes Problem Verruca plantaris (31965252) Verruca Plantaris (078.19) Active confirmed Problem Pain in limb (88455342) Pain in Limb (729.5) Active confirmed Plan Of Treatment Pending Test Test Name Order Date [id number]-Cjeg Destruction, 10-1810/18/2012 92731-Vqbb Destruction, 10-1811/18/2012 78698-Untt Destruction, 10-1806/13/2013 39729-Hghv Destruction, 10-1807/14/2013 94879-Gvsr Destruction, 10-1808/19/2013 27539-Yamq Destruction, 10-1809/07/2013 11662- Debride <25 sq cm 11/09/2013 64229- Debride <25 sq cm 03/01/2014 34609- Debride <25 sq cm 04/10/2014 01902 I&D ABSCESS- SIMPLE,SINGLE 013 96789- Biopsy of skin lesion 10/27/2013 Insurance Providers Payer Name Payer Address Payer Phone Subscriber Number Group Number Insured Name Patient Relationship to Insured Coverage Start Date Coverage End Date [facility] [address] [place] [id number] Vanessa Prieto Self - patient is the insured Medical (General) History Medical History History ICD Code measles mumps chicken pox Surgical History Surgery Date(Month/Year) appendectomy 1958 lung surgery 1972 tonsillectomy and adenoidectomy 1958
[2025-10-02 08:55] VITALS: BP 140/70; PULSE 93; O2SAT 96; BMI 30.1
== END 2025-10-02 09:19 | disposition home or self-care (01) ==
PROVIDERS: PCP Internal Medicine; Visit Provider Nurse Practitioner Family
DX: J44.1 Chronic obstructive pulmonary disease with (acute) exacerbation (principal); J30.2 Other seasonal allergic rhinitis; Z87.891 Personal history of nicotine dependence
CPT/HCPCS: 99214

== ENCOUNTER → 2025-10-02 08:47 | Outpatient (BNVA) | payer MEDICARE, MEDICAID, SELFPAY | PROVIDERS: PCP Internal Medicine; Visit Provider Nurse Practitioner Family | DX: J44.1 Chronic obstructive pulmonary disease with (acute) exacerbation (principal); J30.2 Other seasonal allergic rhinitis; Z91.09 Other allergy status, other than to drugs and biological substances; U07.0 Vaping-related disorder | CPT/HCPCS: 99212 ==

== ENCOUNTER 2025-10-04 06:46 | Outpatient (REF) | payer MEDICARE, MEDICAID, SELFPAY ==
--- OUTSIDE RECORDS SUMMARY | 2025-10-04 06:48 | XMS_ITS | Patient Health Record ---
Author Organization [facility] brandy [facility] Address [address] [place] [address] Care Team Providers Care Bullard Operator Name Role Phone Puma MARIN, Anali Omalley Primary Care Provider Un available Black, Jena Unavailable [phone] Reason For Referral No Information Medications Medication [...] W/U Status Risk Notes Problem Verruca plantaris (10503591) Verruca Plantaris (078.19) Active confirmed Problem Pain in limb (78511377) Pain in Limb (729.5) Active confirmed Plan Of Treatment Pending Test Test Name Order Date [id number]-Kesa Destruction, 10-1810/18/2012 36410-Kqlx Destruction, 10-1811/18/2012 64332-Xndc Destruction, 10-1806/13/2013 86516-Rcsl Destruction, 10-1807/14/2013 44240-Cshb Destruction, 10-1808/19/2013 14082-Cjwz Destruction, 10-1809/07/2013 13425- Debride <25 sq cm 11/09/2013 91936- Debride <25 sq cm 03/01/2014 42823- Debride <25 sq cm 04/10/2014 22923 I&D ABSCESS- SIMPLE,SINGLE 013 94997- Biopsy of skin lesion 10/27/2013 Insurance Providers Payer Name Payer Address Payer Phone Subscriber Number Group Number Insured Name Patient Relationship to Insured Coverage Start Date Coverage End Date [facility] [address] [place] [id number] Vanessa Prieto Self - patient is the insured Medical (General) History Medical History History ICD Code measles mumps chicken pox Surgical History Surgery Date(Month/Year) appendectomy 1958 lung surgery 1972 tonsillectomy and adenoidectomy 1958
--- OUTSIDE RECORDS SUMMARY | 2025-10-04 06:48 | XMS_ITS ---
Author Organization Unknown ENCOUNTERS Encounter Performer Location Date Diagnosis Diagnosis Status Emergency [facility] [address] [place] [address] [id number] [place] Pre Admit Generic ED Physician [facility] [address] [place] [address] [id number] Emergency [facility] [address] [place] [address] [id number] [place] Pre Admit Generic ED Physician [facility] [address] [place] [address] [id number] Emergency [facility] [address] [place] [address] [id number] [place] Pre Admit Generic ED Physician [facility] [address] [place] [address] [id number] Pre Admit [facility] [address] [place] [address] [id number] Outpatient [facility] [address] [place] [address] [id number] [place] *Note: Encounters from your own facility or health system may be excluded. Allergies, Adverse Reactions, Alerts Allergen Type Severity Identification Date varenicline drug allergy [id number] loratadine drug allergy [id number] tiotropium drug allergy 07150138 azithromycin drug allergy 20337953 fluticasone furoate drug allergy 3 01289120 barium sulfate drug allergy 02498061 Medications Name Date Quantity Days Supplied GPI Number
--- OUTSIDE RECORDS SUMMARY | 2025-10-04 06:48 | XMS_ITS | Patient Health Record ---
Author Organization [facility] Address [address] [place] [address] Care Team Providers Care Business Office Technology Instructor Name Role Phone Puma MARIN, Anali Primary [...] Status Risk Notes Problem Colon cancer screening (822833490) Colon cancer screening (Z12.11) Active confirmed Problem Pre-procedure evaluation check (853355252) Encounter for other preprocedural examination (Z01.818) Active confirmed Plan Of Treatment Future Test Test Name Order Date COLONOSCOPY 08/22/2015 COLONOSCOPY 03/13/2021 Insurance Providers Payer Name Payer Address Payer Phone Subscriber Number Group Number Insured Name Patient Relationship to Insured Coverage Start Date Coverage End Date MEDICARE OF [place] [address] [place] [id number] ABIODUN ESCOBAR Self - patient is the insured [employer] ATT[employer] CLAIMS [address] [place] [phone] [id number] ABIODUN ESCOBAR Self - patient is the insured Medical (General) History Medical History History ICD Code colonoscopy 12/07/15, five-year followup hyperplastic colon polyps hemorrhoids anxiety COPD hypertension Surgical History Surgery Date(Month/Year) appendectomy tonsillectomy lung surgery due to collapsed lung adenoidectomy
[2025-10-04 10:58] LABS: Alanine Aminotransferase 36 U/L (0-31); Albumin Level 4.6 g/dL (3.5-5.0); Alkaline Phosphatase 85 U/L (39-117); Anion Gap 11 (12-20); Aspartate Amino Transferase 40 U/L (5-31); Blood Urea Nitrogen 16 mg/dL (9-16); Calcium 9.6 mg/dL (8.4-10.2); Carbon Dioxide 25 mmol/L (22-29); Chloride 109 mmol/L (96-108); Cholesterol 217 mg/dL (<200); Estimated Glomerular Filt Rate 59; HDL Cholesterol 77 mg/dL (>40); Potassium 3.8 mmol/L (3.3-5.1); Sodium 141 mmol/L (135-145); Total Protein 7.9 g/dL (6.5-8.0); Triglycerides 96 mg/dL (<150)
== END 2025-10-04 06:47 | disposition home or self-care (01) ==
LOC: HO.HMGCLDS 06:46
PROVIDERS: PCP Internal Medicine; Visit Provider Internal Medicine
DX: I10 Essential (primary) hypertension (principal); E78.5 Hyperlipidemia, unspecified; R73.01 Impaired fasting glucose
CPT/HCPCS: 36415; 80053; 80061; 82306